=== PATIENT | female | born 1995 | race Caucasian/White ===

== ENCOUNTER 2021-08-12 10:32 | Outpatient (REF) | payer BC, SELFPAY ==
[2021-08-13 05:54] LABS: CT PCR NOT DETECTED (Not Detect.); NG PCR NOT DETECTED (Not Detect.)
[2021-08-13 15:40] LABS: BV Int Neg Control Negative (Negative); BV Int Pos Control Positive (Positive)
== END 2021-08-12 10:33 | disposition home or self-care (01) ==
LOC: HO.LAB 10:32
PROVIDERS: Visit Provider Advanced Practice Midwife
DX: Z01.411 Encounter for gynecological examination (general) (routine) with abnormal findings (principal); Z20.2 Contact with and (suspected) exposure to infections with a predominantly sexual mode of transmission; R53.83 Other fatigue
CPT/HCPCS: 87480; 87491; 87510; 87591; 87660; 88142

== ENCOUNTER 2022-01-01 09:28 | Outpatient (REF) | payer BC, SELFPAY ==
[2022-01-02 06:32] LABS: CT PCR NOT DETECTED (Not Detect.); NG PCR NOT DETECTED (Not Detect.)
[2022-01-02 09:20] LABS: BV Int Neg Control Negative (Negative); BV Int Pos Control Positive (Positive)
== END 2022-01-01 09:29 | disposition home or self-care (01) ==
LOC: HO.LAB 09:28
PROVIDERS: Visit Provider Advanced Practice Midwife
DX: O26.899 Other specified pregnancy related conditions, unspecified trimester (principal); R10.2 Pelvic and perineal pain; Z20.2 Contact with and (suspected) exposure to infections with a predominantly sexual mode of transmission
CPT/HCPCS: 81003; 87480; 87491; 87510; 87591; 87660

== ENCOUNTER 2022-01-10 10:38 | Outpatient (REF) | payer BC, SELFPAY ==
--- NOTE | ~2022-01-10 | US_ITS ---
EXAMINATION: US OBSTETRICAL ULTRASOUND CLINICAL INFORMATION: Irregular menstruation. Check size and dates. COMPARISON: None. LMP: 17 2021. Gestational age by maternal dates is 9 weeks 6 days. Estimated date of delivery by maternal dates is 08/09/2022. TECHNIQUE: Transabdominal and transvaginal first trimester OB ultrasound. Transvaginal exam was performed for better visualization of the gestational sac. FINDINGS: There is a single intrauterine gestational sac with visible yolk sac, embryo/fetus, and cardiac activity. There is no significant subchorionic hemorrhage or hematoma. HR: 122 beats per minute. CRL (crown rump length): 0.51 cm (6 weeks 3 days +/- 4 days). BRAEDEN (estimated date of delivery): 09/02/2022 +/- 4 days. MATERNAL ADNEXA: The right maternal ovary measures 3.4 x 1.7 x 2.3 cm. The left maternal ovary measures 3 x 1.7 x 2.6 cm. There is no significant maternal adnexal mass. No maternal pelvic ascites. US/US OB <= 14 weeks fetus IMPRESSION: 1. Single intrauterine gestation with ultrasound gestational age of 6 weeks 3 days +/- 4 days. 2. Estimated date of delivery is 09/02/2022 +/- 4 days. 3. No maternal adnexal mass or pelvic ascites.
--- NOTE | ~2022-01-10 | US_ITS ---
EXAMINATION: US OBSTETRICAL ULTRASOUND CLINICAL INFORMATION: Irregular menstruation. Check size and dates. COMPARISON: None. LMP: 17 2021. Gestational age by maternal dates is 9 weeks 6 days. Estimated date of delivery by maternal dates is 08/09/2022. TECHNIQUE: Transabdominal and transvaginal first trimester OB ultrasound. Transvaginal exam was performed for better visualization of the gestational sac. FINDINGS: There is a single intrauterine gestational sac with visible yolk sac, embryo/fetus, and cardiac activity. There is no significant subchorionic hemorrhage or hematoma. HR: 122 beats per minute. CRL (crown rump length): 0.51 cm (6 weeks 3 days +/- 4 days). BRAEDEN (estimated date of delivery): 09/02/2022 +/- 4 days. MATERNAL ADNEXA: The right maternal ovary measures 3.4 x 1.7 x 2.3 cm. The left maternal ovary measures 3 x 1.7 x 2.6 cm. There is no significant maternal adnexal mass. No maternal pelvic ascites. US/US OB transvaginal IMPRESSION: 1. Single intrauterine gestation with ultrasound gestational age of 6 weeks 3 days +/- 4 days. 2. Estimated date of delivery is 09/02/2022 +/- 4 days. 3. No maternal adnexal mass or pelvic ascites.
== END 2022-01-10 10:39 | disposition home or self-care (01) ==
LOC: HO.US 10:38
PROVIDERS: Visit Provider Advanced Practice Midwife
DX: O26.891 Other specified pregnancy related conditions, first trimester (principal); R10.2 Pelvic and perineal pain; Z3A.09 9 weeks gestation of pregnancy
CPT/HCPCS: 76801; 76817

== ENCOUNTER 2022-01-24 08:39 | Outpatient (REF) | payer BC, SELFPAY ==
[2022-01-24 15:23] LABS: CT PCR NOT DETECTED (Not Detect.); NG PCR NOT DETECTED (Not Detect.)
[2022-01-25 15:15] LABS: BV Int Neg Control Negative (Negative); BV Int Pos Control Positive (Positive)
== END 2022-01-24 08:40 | disposition home or self-care (01) ==
LOC: HO.LNP 08:39
PROVIDERS: Visit Provider Advanced Practice Midwife
DX: Z01.419 Encounter for gynecological examination (general) (routine) without abnormal findings (principal)
CPT/HCPCS: 87480; 87491; 87510; 87591; 87660

== ENCOUNTER 2022-02-07 10:55 | Outpatient (REF) | payer BC, SELFPAY ==
[2022-02-07 12:16] LABS: Amphetamine Screen Urine Not Detected (Not Detect); Barbiturates, Urine Not Detected (Not Detect); Benzodiazepines Screen Urine Not Detected (Not Detect); Cannabinoid Screen Urine Not Detected (Not Detect); Cocaine Screen Urine Not Detected (Not Detect); Fentanyl, urine Not Detected (Not Detect); Opiate Screen Urine Not Detected (Not Detect); Phencyclidine Screen Urine Not Detected (Not Detect)
[2022-02-07 12:56] LABS: Hematocrit 36.2 % (37.0-47.0); Hemoglobin 12.1 g/dl (12.0-16.0); Mean Corpuscular HGB Conc 33.4 g/dl (31.0-35.0); Mean Corpuscular Hemoglobin 29.8 pg (27.0-33.0); Mean Corpuscular Volume 89.2 fL (80.0-98.0); Mean Platelet Volume 11.3 fL (9.4-12.3); Platelet Count 290 X10*3/uL (160-400); Red Blood Count 4.06 X10*6/uL (4.20-5.50); Red Cell Distribution Width 13.9 % (11.0-16.0); White Blood Count 10.4 X10*3/uL (4.8-10.8)
[2022-02-07 13:16] LABS: Glucose 1 Hour PP 50gm Dose 86 mg/dL (60-140)
[2022-02-07 13:40] LABS: Syphilis Screen Nonreactive (Nonreactive)
[2022-02-07 14:17] LABS: HBsAGNum1 0.25 S/CO (0.00-0.99); HIV AB/AG Nonreactive (Nonreactive); HIV Num 1 0.11 S/CO (0.00-0.99); Hepatitis B Surface Antigen Negative (Negative); ~Hepatitis C Antibody Nonreactive (Nonreactive)
[2022-02-10 17:06] LABS: Rubella IgG Antibody 2.36 Index
== END 2022-02-07 10:56 | disposition home or self-care (01) ==
LOC: HO.LAB 10:55
PROVIDERS: Visit Provider Advanced Practice Midwife
DX: Z32.01 Encounter for pregnancy test, result positive (principal)
CPT/HCPCS: 80307; 82950; 85027; 86762; 86780; 86787; 86803; 86850; 86900; 87086; 87340; 87389; 99212

== ENCOUNTER → 2022-02-20 11:08 | Outpatient (BNVA) | payer BC, SELFPAY | PROVIDERS: Visit Provider Advanced Practice Midwife | DX: Z34.01 Encounter for supervision of normal first pregnancy, first trimester (principal); Z13.31 Encounter for screening for depression; Z3A.12 12 weeks gestation of pregnancy | CPT/HCPCS: 81003; 99212 ==

== ENCOUNTER → 2022-03-20 08:53 | Outpatient (BNVA) | payer BC, SELFPAY | PROVIDERS: Visit Provider Advanced Practice Midwife | DX: Z34.92 Encounter for supervision of normal pregnancy, unspecified, second trimester (principal); Z3A.16 16 weeks gestation of pregnancy | CPT/HCPCS: 99212 ==

== ENCOUNTER 2022-03-30 17:53 | Emergency (ER) | payer BC, SELFPAY | END 2022-03-30 19:43 | disposition left against medical advice (07) | LOC: HO.ED 19:16 | PROVIDERS: Emergency Provider Emergency Medicine | DX: H92.02 Otalgia, left ear (principal) ==

== ENCOUNTER → 2022-04-23 08:56 | Outpatient (BNVA) | payer BC, SELFPAY | PROVIDERS: Visit Provider Advanced Practice Midwife | DX: Z34.02 Encounter for supervision of normal first pregnancy, second trimester (principal); Z3A.21 21 weeks gestation of pregnancy | CPT/HCPCS: 99212 ==

== ENCOUNTER → 2022-05-22 08:51 | Outpatient (BNVA) | payer BC, SELFPAY | PROVIDERS: Visit Provider Advanced Practice Midwife | DX: Z34.92 Encounter for supervision of normal pregnancy, unspecified, second trimester (principal); Z3A.25 25 weeks gestation of pregnancy | CPT/HCPCS: 81003; 99212 ==

== ENCOUNTER 2022-06-19 09:51 | Outpatient (REF) | payer BC, SELFPAY ==
[2022-06-19 12:38] LABS: Hematocrit 32.6 % (37.0-47.0); Hemoglobin 10.7 g/dl (12.0-16.0); Mean Corpuscular HGB Conc 32.8 g/dl (31.0-35.0); Mean Corpuscular Hemoglobin 29.9 pg (27.0-33.0); Mean Corpuscular Volume 91.1 fL (80.0-98.0); Mean Platelet Volume 11.8 fL (9.4-12.3); Platelet Count 232 X10*3/uL (160-400); Red Blood Count 3.58 X10*6/uL (4.20-5.50); Red Cell Distribution Width 13.2 % (11.0-16.0); White Blood Count 11.5 X10*3/uL (4.8-10.8)
[2022-06-19 13:23] LABS: Glucose 1 Hour PP 50gm Dose 93 mg/dL (60-140)
[2022-06-20 08:57] LABS: Syphilis Screen Nonreactive (Nonreactive)
[2022-06-30 15:53] LABS: CF Ethnicity NG; Cystic Fibrosis NEGATIVE (NEGATIVE)
== END 2022-06-19 09:52 | disposition home or self-care (01) ==
LOC: HO.LAB 09:51
PROVIDERS: Visit Provider Advanced Practice Midwife
DX: Z34.93 Encounter for supervision of normal pregnancy, unspecified, third trimester (principal); Z3A.29 29 weeks gestation of pregnancy
CPT/HCPCS: 36415; 81003; 81220; 82950; 85027; 86780; 99212

== ENCOUNTER → 2022-07-04 14:24 | Outpatient (BNVA) | payer BC, SELFPAY | PROVIDERS: Visit Provider Advanced Practice Midwife | DX: O26.893 Other specified pregnancy related conditions, third trimester (principal); M54.32 Sciatica, left side; Z23 Encounter for immunization; Z3A.32 32 weeks gestation of pregnancy | CPT/HCPCS: 90471; 90715; 99212 ==

== ENCOUNTER → 2022-07-17 15:11 | Outpatient (BNVA) | payer BC, SELFPAY | PROVIDERS: Visit Provider Advanced Practice Midwife | DX: O99.213 Obesity complicating pregnancy, third trimester (principal); O26.893 Other specified pregnancy related conditions, third trimester; G43.909 Migraine, unspecified, not intractable, without status migrainosus; Z3A.33 33 weeks gestation of pregnancy | CPT/HCPCS: 81003; 99212 ==

== ENCOUNTER 2022-08-01 14:19 | Outpatient (REF) | payer BC, SELFPAY ==
[2022-08-01 18:00] LABS: CT PCR NOT DETECTED (Not Detect.); NG PCR NOT DETECTED (Not Detect.)
[2022-08-02 10:14] LABS: BV Int Neg Control Negative (Negative); BV Int Pos Control Positive (Positive)
[2022-08-03 11:22] LABS: Allergic to Penicillin? Yes
== END 2022-08-01 14:20 | disposition home or self-care (01) ==
LOC: HO.LNP 14:19
PROVIDERS: Visit Provider Advanced Practice Midwife
DX: Z34.93 Encounter for supervision of normal pregnancy, unspecified, third trimester (principal); Z20.2 Contact with and (suspected) exposure to infections with a predominantly sexual mode of transmission; Z3A.36 36 weeks gestation of pregnancy
CPT/HCPCS: 0353U; 81003; 87081; 87147; 87150; 87186; 87480; 87510; 87660; 99212

== ENCOUNTER 2022-08-07 14:00 | Outpatient (RCR) | payer BC, SELFPAY | END 2022-08-28 08:43 | disposition home or self-care (01) | LOC: HO.PT 14:00 | PROVIDERS: Visit Provider Advanced Practice Midwife | DX: M54.32 Sciatica, left side (principal) | CPT/HCPCS: 97110; 97161 ==

== ENCOUNTER → 2022-08-08 13:16 | Outpatient (BNVA) | payer BC, MEDICAID, SELFPAY | PROVIDERS: Visit Provider Advanced Practice Midwife | DX: O32.1XX0 Maternal care for breech presentation, not applicable or unspecified (principal); O41.00X0 Oligohydramnios, unspecified trimester, not applicable or unspecified; O99.820 Streptococcus B carrier state complicating pregnancy; O98.813 Other maternal infectious and parasitic diseases complicating pregnancy, third trimester; B96.89 Other specified bacterial agents as the cause of diseases classified elsewhere; O26.893 Other specified pregnancy related conditions, third trimester; G43.909 Migraine, unspecified, not intractable, without status migrainosus; Z3A.37 37 weeks gestation of pregnancy; Z79.899 Other long term (current) drug therapy | CPT/HCPCS: 81003; 99212 ==

== ENCOUNTER 2022-08-08 14:22 | Outpatient (REF) | payer BC, SELFPAY ==
--- NOTE | ~2022-08-08 | US_ITS ---
EXAMINATION: US OBSTETRICAL FOLLOW UP CLINICAL INFORMATION: Encounter for supervision abnormal COMPARISON: Previous OB ultrasound 01/10/2022 TECHNIQUE: Real time transabdominal imaging with color and M-mode Doppler. POSITION: Cephalic PLACENTA: Right lateral AMNIOTIC FLUID INDEX: Not obtained. Amniotic fluid volume is subjectively low normal. 2 x 2 cm pocket is seen image 8. MEASUREMENTS: The initial dating ultrasound dated provided an estimated date of delivery of 08/20/2022. This would project today to a of 38 weeks 2 days. biometric measurements are as follows: Biparietal Diameter: 9 cm (36 weeks 5 days) Occipital Frontal Diameter: 10.8 cm (34 weeks 4 days) Head Circumference: 32.8 cm (37 weeks 3 days) Abdominal Circumference: 34.6 cm (38 weeks 4 days) Femur Length: 7.9 cm (40 weeks 3 days) The standard deviation for the above measurements is +/- 3 weeks. ESTIMATED WEIGHT: The EFW is 3522 grams +/- 515 grams (7 lbs 12 oz +/- 18 oz). HR: 142 bpm US/US OB follow up IMPRESSION: 1. Single intrauterine gestation in cephalic position with right lateral placenta. 2. EFW: 7 lbs. 12 oz. 3. CHARU: Not obtained. Amniotic fluid volume is subjectively low normal. 4. BPP score: Not obtained.
== END 2022-08-08 14:23 | disposition home or self-care (01) ==
LOC: HO.US 14:22
PROVIDERS: Visit Provider Advanced Practice Midwife
DX: O32.1XX0 Maternal care for breech presentation, not applicable or unspecified (principal); Z3A.37 37 weeks gestation of pregnancy
CPT/HCPCS: 76816

== ENCOUNTER → 2022-08-14 14:25 | Outpatient (BNVA) | payer BC, SELFPAY | PROVIDERS: Visit Provider Advanced Practice Midwife | DX: O41.03X0 Oligohydramnios, third trimester, not applicable or unspecified (principal); O98.813 Other maternal infectious and parasitic diseases complicating pregnancy, third trimester; B95.1 Streptococcus, group B, as the cause of diseases classified elsewhere; Z3A.37 37 weeks gestation of pregnancy | CPT/HCPCS: 99212 ==

== ENCOUNTER → 2022-08-21 12:52 | Outpatient (BNVA) | payer BC, SELFPAY | PROVIDERS: Visit Provider Advanced Practice Midwife | DX: O99.820 Streptococcus B carrier state complicating pregnancy (principal); O99.343 Other mental disorders complicating pregnancy, third trimester; F41.8 Other specified anxiety disorders; Z3A.38 38 weeks gestation of pregnancy | CPT/HCPCS: 81003; 99212 ==

== ENCOUNTER → 2022-10-08 12:54 | Outpatient (BNVA) | payer BC, SELFPAY | PROVIDERS: Visit Provider Advanced Practice Midwife | DX: Z39.2 Encounter for routine postpartum follow-up (principal) | CPT/HCPCS: 99212 ==

== ENCOUNTER 2023-01-14 14:58 | Emergency (ER) | payer BC, MEDICAID, SELFPAY ==
--- NOTE | 2023-01-14 15:00 | ECG_ITS ---
Test Reason : chest pain Blood Pressure : / mmHG Vent. Rate : 083 BPM Atrial Rate : 083 BPM P-R Int : 134 ms QRS Dur : 074 ms QT Int : 362 ms P-R-T Axes : 044 060 002 degrees QTc Int : 425 ms Normal sinus rhythm with sinus arrhythmia T wave abnormality, consider inferior ischemia Abnormal ECG When compared with ECG of 23-MAR-2019 20:36, T wave inversion now evident in Inferior leads Nonspecific T wave abnormality, worse in Anterior leads Referred By: Generic ED Physician Electronically Signed By:JUD FERRERA
[2023-01-14 15:13] VITALS: BP 145/91; PULSE 84; RESP 16; TEMP 37.3; O2SAT 99; BMI 38.7
--- NOTE | 2023-01-14 15:17 | ED_ITS ---
HPI - General Adult General Chief complaint: Chest Pain Stated complaint: chest pain, hands tingly, body numb Time Seen by Provider: 01/14/23 15:25 Source: patient Mode of arrival: ambulatory Limitations: no limitations History of Present Illness HPI narrative: Patient 10 weeks complaining of chest pain since early 07:00 today feel heaviness in the chest no shortness of breath feels also tingling in the right arm no history of PE or coronary disease no shortness of breath no cough patient had similar chest pain the past without any workup denies any significant anxiety Related Data Previous Rx's Medication Instructions Recorded PNV 153-FA 400 mcg-om3 35 mg-dha 1 tab PO DAILY #30 tabs 03/20/22 25 mg-epa 5 mg-fish oil chew tablet ( Gummies) omeprazole 40 mg capsule,delayed 40 mg PO DAILY #30 caps 01/14/23 release sucralfate 1 gram tablet 1 g PO BID #30 tabs 01/14/23 Allergies Allergy/AdvReac Type Severity Reaction Status Date / Time amoxicillin [Amoxicillin] Allergy Unknown UNKNOWN Verified 10/08/22 13:05 Review of Systems 2 Review of Systems: Yes all other systems are reviewed and are negative PMFSH Past Medical History Medical History Genetic screening Adult BMI > 30 History of MRSA infection Depression with anxiety Migraine Social History Social History Household Members: Family Housing: House Are you a primary child care associate teacher to a significant other at home: No Do you presently have visiting nurse or other home services: No Alcohol intake: never Patient Tobacco Use Status: Never used Tobacco Smoked in Last 30 Days: No Use of substances other than those prescribed or required for medical reasons: No Special cuong needs: No Agree to transfusion: Yes Advance Directives: No Advance Directives Information Provided: Yes Patient : Yes Gender identity: Female Physical Exam ED Vital Signs: Vital Signs - 24 hr 01/14/23 15:13 01/14/23 15:57 Temperature 99.1 F 98.5 F Pulse Rate 84 65 Respiratory Rate 16 16 Blood Pressure 145/91 H 109/73 Pulse Oximetry 99 98 Oxygen Delivery Method Room Air Room Air BMI result Body Mass Index 38.7 Appearance: Alert. Oriented X3. No acute distress. Eyes: PERRLA, No Nystagmus ENT: Pharynx normal. Oral Mucosa moist Neck: Normal inspection. Neck supple. CVS: Normal heart rate and rhythm. Pulses normal. Respiratory: No respiratory distress. Equal air entry bilateral, no wheezing/rales/rhonchi Abdomen: Soft and nontender. Bowel sounds are present, no mass palpable, no CVA tenderness Skin: Skin warm and dry. Normal skin color. Normal skin turgor. Extremities: No lower extremity edema. No calf tenderness Neuro: Oriented X 3. No motor deficit. Course Course Course Narrative: RME- 27 year old female presents for evaluation chest pain that started at 10:30 a.m. this morning. Her pain started while she was watching TV. Her pain is mostly right-sided. She also endorses numbness in her fingertips. Patient reports that she is currently but is unsure exactly how long. Her last period was in November. She follows up with OBGYN tomorrow. Denies any lower abdominal pain, vaginal bleeding or discharge Medical Decision Making Medical Decision Making MDM Narrative: Patient with no real cardiac risk factor heart score of 0 comes with a chest patient is 10 weeks vitals are stable initial troponin negative EKG without any significant ischemic changes as patient feels heavy in the chest will check for D-dimer to rule out PE D-dimer negative up patient likely has esophagitis will discharge patient home on Prilosec and sucralfate Differential Diagnosis Differential Diagnoses: The differential diagnosis associated with the presentation includes Angina/non STEMI/PE/atypical chest pain/gastritis Admission/Observation Consideration of admission/observation: Escalation of care including admission/observation considered Lab Data [facility] Lab Attestation statement: I reviewed the patient's lab results. 01/14/23 15:22 01/14/23 15:22 Labs: Lab Results 01/14/23 Range/Units 15:22 WBC 9.7 (4.8-10.8) X10*3/uL RBC 4.08 L (4.20-5.50) X10*6/uL Hgb 11.8 L (12.0-16.0) g/dl Hct 35.2 L (37.0-47.0) % MCV 86.3 (80.0-98.0) fL MCH 28.9 (27.0-33.0) pg MCHC 33.5 (31.0-35.0) g/dl RDW 13.8 (11.0-16.0) % Plt Count 290 (160-400) X10*3/uL MPV 11.1 (9.4-12.3) fL Immature Gran % (Auto) 0.2 (0.0-0.4) % Neut % (Auto) 66.0 (45-73) % Lymph % (Auto) 27.1 (20-40) % Warrick % (Auto) 5.4 (2-11) % Eos % (Auto) 0.6 (0-4) % Baso % (Auto) 0.7 (0-2) % Lymph # (Auto) 2.6 (1.2-4.9) X10*3/uL Warrick # (Auto) 0.5 (0.1-1.2) X10*3/uL Eos # (Auto) 0.1 (0.0-0.4) X10*3/uL Baso # (Auto) 0.1 (0.0-0.2) X10*3/uL Abs Immat Gran (auto) 0.02 (0.00-0.03) X10*3/uL Absolute Neuts (auto) 6.4 (2.0-8.3) x10*3/uL Absolute Nucleated RBC 0.000 (0.0-0.012) X10*3/uL Nucleated RBC % (auto) 0.0 (0.0-0.2) /100WBC PT 11.7 (11.1-13.3) SEC INR 1.0 (0.9-1.1) APTT 35.7 (26.0-36.4) SEC D-Dimer High Sensitivty < 150 NG/ML Sodium 139 (135-145) mmol/L Potassium 3.9 (3.3-5.1) mmol/L Chloride 111 H (96-108) mmol/L Carbon Dioxide 21 L (22-29) mmol/L Anion Gap 11 L (12-20) BUN 8 L (9-16) mg/dL Creatinine 0.68 (0.5-1.4) mg/dL Estim Creat Clear Calc 147.1 Estimated GFR > 60 Random Glucose 101 (60-115) mg/dL Calcium 9.7 (8.4-10.2) mg/dL Total Bilirubin 0.2 (0.0-1.0) mg/dL AST 14 (5-31) U/L ALT 10 (0-31) U/L Alkaline Phosphatase 54 (39-117) U/L Troponin I High Sens < 2.7 (<3.5-17.0) ng/L Total Protein 7.3 (6.5-8.0) g/dL Albumin 4.0 (3.5-5.0) g/dL Lipase 18 (8-78) U/L Beta HCG, Quant [id number] mIU/mL Independent Interpretation I performed an independent interpretation of an: EKG Interpretation: Normal sinus rhythm heart rate 83 beats per minute now interval normal axis nonspecific T-wave changes no acute ischemia Discharge Plan Discharge Clinical Impression: Atypical chest pain Patient Disposition: Home, Self-Care Instructions: Chest Pain (ED) Additional Instructions: Your chest pain is unlikely related to your heart Take medication as prescribed for heartburn/chest pain Follow with PCP Prescriptions: New sucralfate 1 gram tablet 1 g PO BID Qty: 30 0RF omeprazole 40 mg capsule,delayed release(DR/EC) 40 mg PO DAILY Qty: 30 0RF No Action Gummies 400 mcg-35 mg- 25 mg-5 mg tablet,chewable 1 tab PO DAILY Qty: 30 11RF
[2023-01-14 15:26] LABS: MANUAL DIFF FLAG NO
[2023-01-14 15:28] LABS: Basophils Absolute Auto 0.1 X10*3/uL (0.0-0.2); Basophils Percent Auto 0.7 % (0-2); Eosinophils Absolute Auto 0.1 X10*3/uL (0.0-0.4); Eosinophils Percent Auto 0.6 % (0-4); Hematocrit 35.2 % (37.0-47.0); Hemoglobin 11.8 g/dl (12.0-16.0); Imm Gran Abs Auto 0.02 X10*3/uL (0.00-0.03); Imm Gran Pct Auto 0.2 % (0.0-0.4); Lymphocytes Absolute Auto 2.6 X10*3/uL (1.2-4.9); Lymphocytes Percent Auto 27.1 % (20-40); Mean Corpuscular HGB Conc 33.5 g/dl (31.0-35.0); Mean Corpuscular Hemoglobin 28.9 pg (27.0-33.0); Mean Corpuscular Volume 86.3 fL (80.0-98.0); Mean Platelet Volume 11.1 fL (9.4-12.3); Monocytes Absolute Auto 0.5 X10*3/uL (0.1-1.2); Monocytes Percent Auto 5.4 % (2-11); Neutrophils Absolute Auto 6.4 x10*3/uL (2.0-8.3); Platelet Count 290 X10*3/uL (160-400); Red Blood Count 4.08 X10*6/uL (4.20-5.50); Red Cell Distribution Width 13.8 % (11.0-16.0); White Blood Count 9.7 X10*3/uL (4.8-10.8)
[2023-01-14 15:49] LABS: Prothrombin Time 11.7 SEC (11.1-13.3)
[2023-01-14 15:51] LABS: Alanine Aminotransferase 10 U/L (0-31); Alkaline Phosphatase 54 U/L (39-117); Anion Gap 11 (12-20); Aspartate Amino Transferase 14 U/L (5-31); Bilirubin Total 0.2 mg/dL (0.0-1.0); Blood Urea Nitrogen 8 mg/dL (9-16); Calcium 9.7 mg/dL (8.4-10.2); Carbon Dioxide 21 mmol/L (22-29); Chloride 111 mmol/L (96-108); Creatinine Clr Calc Pharmacy 147.1; Estimated Glomerular Filt Rate > 60; Glucose Random 101 mg/dL (60-115); Lipase 18 U/L (8-78); Partial Thromboplastin Time 35.7 SEC (26.0-36.4); Potassium 3.9 mmol/L (3.3-5.1); Sodium 139 mmol/L (135-145); Total Protein 7.3 g/dL (6.5-8.0)
[2023-01-14 15:52] LABS: Troponin-I High Sensitivity < 2.7 ng/L (<3.5-17.0)
[2023-01-14 15:57] VITALS: BP 109/73; PULSE 65; RESP 16; TEMP 36.9; O2SAT 98
[2023-01-14 17:02] LABS: D Dimer High Sensitivity < 150 NG/ML
== END 2023-01-14 17:38 | disposition home or self-care (01) ==
PROVIDERS: Physician Assistant; Emergency Provider Internal Medicine
DX: R07.89 Other chest pain (principal); Z79.899 Other long term (current) drug therapy
CPT/HCPCS: 36415; 80053; 83690; 84484; 84702; 85025; 85379; 85610; 85730; 93005; 99283; 99285

== ENCOUNTER 2023-01-15 14:54 | Outpatient (AMB) | payer BC, SELFPAY ==
[2023-01-15 15:03] VITALS: BP 100/60; BMI 38.6
--- NOTE | 2023-01-15 15:03 | MHC.OFFVIS ---
Intake Vital Signs 01/15/23 15:03 Height 5 ft 4 in Weight 225 lb BMI 38.6 BP 100/60 Intake Visit Reasons: consult Intake Note: LMP 11/04/22 08/11/23 10w 2d The patient agreed to use of a expert medical writer during this encounter. Scribed for AHSAN Pierre by Jada Chun, expert medical writer, on 01/15/2023 at 3:11 pm EST. Allergies amoxicillin [Amoxicillin] Allergy (Unknown, Verified 01/15/23 15:03) UNKNOWN Is last menstrual period known: Yes Last menstrual period: 11/04/22 HPI HPI Comments History of Present Illness Details She is here for consult. LMP 11/04/22 08/11/23 10w 2d. Is taking PNV gummies. Unplanned, accepting of , plan to continue. Admits nausea but is able to eat. Denies pelvic pain, past surgeries or complications in last /delivery. There was a question of low fluid volume, she reports was ruled out. Reports light headedness when standing to fast. Reports possible movement. [facility] Medical History (Updated 01/15/23 @ 15:17 by Jada Chun) Early stage of Genetic screening Adult BMI > 30 History of MRSA infection Depression with anxiety Migraine Social History Household Members: Family Both parents involved: Yes Housing: House Are you a primary healthcare business analyst to a significant other at home: No Do you presently have visiting nurse or other home services: No 75 years or older and lives alone: No Alcohol intake: never Patient Tobacco Use Status: Never used Tobacco Special cuong needs: No Agree to transfusion: Yes Gender identity: Female Female Reproductive History Menstrual Age of Menarche: 13 Duration of menses: 3-5 days Date of last menstrual period: 11/04/22 Total pregnancies: 2 Full term: 1 Number of Living Children: 1 Physical Exam Vital Signs: Last Vital Signs BP 100/60 01/15/23 15:03 BMI result Body Mass Index 38.6 Const General: cooperative, healthy appearing, comfortable, no acute distress, well developed, alert and awake GI Other: palpated abdomen Inspection: Yes obesity Assessment & Plan Assessment & Plan (1) Early stage of : Code(s): Z34.90 - Encounter for supervision of normal , unspecified, unspecified trimester Plan: Discussed: PNV and B6 Rx sent to pharmacy. US ordered. Reviewed when to call for any VB or pelvic pain. Discussed to call the service here for any emergencies/deliveries to be directed to [facility]. All of her questions and concerns were addressed to the best of my ability and shared decision making. She is agreeable to plan of care. Follow up pending results, for a plan of care. (2) Positive test: Code(s): Z32.01 - Encounter for test, result positive (3) Missed menses: Code(s): N92.6 - Irregular menstruation, unspecified (4) Nausea: Code(s): R11.0 - Nausea Orders: Orders US OB limited Today N92.6 - Irregular menstruation, unspecified, Z32.01 - Encounter for test, result positive Medications: New pyridoxine (vitamin B6) 25 mg PO TID PRN 90 tabs 0RF nausea and vomiting Refilled PNV [id number] 400 mcg-35 mg- 25 mg-5 mg ( Gummies) 1 tab PO DAILY 90 tabs 4RF Coding Level of Care Code Est Pt Level 3 (61537) Diagnoses Early stage of Z34.90 Positive test Z32.01 Missed menses N92.6 Nausea R11.0
== END 2023-01-15 15:20 | disposition home or self-care (01) ==
PROVIDERS: Visit Provider Advanced Practice Midwife
DX: Z34.90 Encounter for supervision of normal pregnancy, unspecified, unspecified trimester (principal); Z32.01 Encounter for pregnancy test, result positive; N92.6 Irregular menstruation, unspecified; R11.0 Nausea
CPT/HCPCS: 99213

== ENCOUNTER → 2023-01-15 14:54 | Outpatient (BNVA) | payer BC, SELFPAY | PROVIDERS: Visit Provider Advanced Practice Midwife ==

== ENCOUNTER 2023-01-16 15:08 | Outpatient (REF) | payer BC, MEDICAID, SELFPAY ==
--- NOTE | ~2023-01-16 | US_ITS ---
EXAMINATION: US OBSTETRICAL ULTRASOUND CLINICAL INFORMATION: Irregular menstruation, unspecified ? LMP 11/04/2022 COMPARISON: None available. LMP: 11/04/2022. Gestational age by maternal dates is 10 weeks 3 days. Estimated date of delivery by maternal dates is 08/11/2023. TECHNIQUE: Transvaginal imaging was performed. FINDINGS: There is a single intrauterine gestational sac with fetus demonstrating movement and cardiac activity. There is no significant subchorionic hemorrhage or hematoma. HR: 172 beats per minute. CRL (crown rump length): 3.5 cm (10 weeks 3 days +/- 4 days). BRAEDEN (estimated date of delivery): 08/11/2023 +/- 4 days. MATERNAL ADNEXA: The right maternal ovary measures 3.0 x 2.2 x 2.0 cm. The left maternal ovary measures 3.0 x 2.8 x 2.1 cm. There is no significant maternal adnexal mass. No maternal pelvic ascites. US/US OB <= 14 weeks fetus IMPRESSION: 1. Single intrauterine gestation with ultrasound gestational age of 10 weeks 3 days +/- 4 days. This is in concordance with estimated gestational age based on LMP. 2. Estimated date of delivery is 08/11/2023 +/- 4 days. 3. No maternal adnexal mass or pelvic ascites.
== END 2023-01-16 15:09 | disposition home or self-care (01) ==
LOC: HO.US 15:08
PROVIDERS: Visit Provider Advanced Practice Midwife
DX: Z34.91 Encounter for supervision of normal pregnancy, unspecified, first trimester (principal); Z3A.10 10 weeks gestation of pregnancy
CPT/HCPCS: 76801

== ENCOUNTER 2023-01-22 13:58 | Outpatient (AMB) | payer BC, MEDICAID, SELFPAY ==
--- NOTE | 2023-01-22 14:07 | MHC.OFFVISPN ---
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 Required: No Allergies amoxicillin [Amoxicillin] Allergy (Unknown, Verified 01/15/23 15:03) UNKNOWN Medication List - Last Reconciled 01/22/23 by Shivani Sullivan omeprazole 40 mg PO DAILY PNV [id number] 400 mcg-35 mg- 25 mg-5 mg ( Gummies) 1 tab PO DAILY pyridoxine (vitamin B6) 25 mg PO TID PRN sucralfate 1 g PO BID Is last menstrual period known: Yes Last menstrual period: 11/04/22 Post menopausal: No Patient : Yes [facility] Medical History (Updated 01/22/23 @ 15:28 by Shivani Sullivan) Early stage of Genetic screening Adult BMI > 30 History of MRSA infection Depression with anxiety Migraine Family History (Updated 01/22/23 @ 14:18 by Shivani Sullivan) Brother Tracheostomy present Feeding by G-tube Social History (Updated 01/22/23 @ 14:22 by Shivani Sullivan) Household Members: Children Both parents involved: Yes Caregiver staying overnight: No Housing: House Are you a primary patient care secretary to a significant other at home: No Do you presently have visiting nurse or other home services: No 75 years or older and lives alone: No Alcohol intake: never Patient Tobacco Use Status: Never used Tobacco Special cuong needs: No Agree to transfusion: Yes service: No Current occupational status: employed 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 Date GA/Weeks Outcome Route Wt Inf Gender Labor Leena Anesthesia Location Provider Complicate 08/27/22 39 live - full term vaginal delivery 7 lb 3 oz Male none [facility] none Education First Trimester Education Checklist Plans/Education - by Trimester Counseled: Yes HIV and other routine tests: discussed Infectious disease exposure: chicken pox immunity discussed, hepatitis risk discussed and tuberculosis exposure discussed Influenza vaccine: discussed Nutrition and weight gain counseling: special diet: discussed Sexual activity: discussed Exercise: discussed Tobacco use: No Alcohol use: No Substance use: No Environmental/home/work hazards: discussed Domestic violence: discussed Travel: discussed Seatbelt use: discussed Toxoplasmosis precautions (cats/raw meat): discussed Childbirth education/discussion: symptoms education/discussion danger signs: Yes education packet: symptoms, vitamins and iron, diet and weight gain, fish and mercury intake, listeriosis prevention, caffeine use, exercise and activity, work issues, sexual activity, x-ray exposure, medication use, toxoplasmosis precautions, sauna/hot tub use and dental care Mental health: discussed Anticipated course of care: discussed Indications for ultrasound: discussed Health center information: nature of practice discussed, personnel described, visit schedule reviewed, ultrasounds policy reviewed, coverage 24 hours a day and signs of miscarriage reviewed Questionnaire History History : 2 Visit BRAEDEN Calculator Estimated Delivery Date Method Current WG Current Estimate 08/11/23 LMP (Certain) 11w 2d Other Estimates 08/11/23 Ultrasound #1 11w 2d Expected Delivery Route/Plan Specific Issues/Plans Obesity BMI 38.8--early glucose ordered OB Visit Log Initial Weight: 220 lb Date <del>?</del> EGA Weight Gest Week Fundal Ht Present FHR move Efface % Edema BP PrePreg We Weight GTT <del>?</del> Glucose LV Protein Blood Type 01/22/23 <del>?</del> 11w 2d 224 lb (+4 lb) 224 lb <del>?</del> Notes Visit Date: 01/22/23 Last Updated by: Shivani Zapata is here for control technician. She is a pleasant 27 year old with LMP 11/04/22 and BRAEDEN 08/11/23 which correlates exactly with US on 01/16/23 at 10w3d, BRAEDEN 4/9/24 and GA today of 11w3d today. Short interval was unplanned but pt wishes to continue. Pt's son will be ~1 year old when baby #2 is born. FOB is the same for both pregnancies. He is supportive. BMI is 38.8 and early glucose has been added to labs. Pt is scheduled for OB PE 02/04/23. Jodi has some nausea but she is managing well. She is on PNV and has been prescribed Vit B6 for nausea but has not started the medication. She is also taking sucralfate and omeprazole for heartburn. She has h/o anxiety and depression, does not have a counselor but reports her boyfriend and family are very supportive. Pt does report she has a half-brother who has a trach and G-tube, nonambulatory and nonverbal but she is not sure of the reason. She will try and find out the problem. Pt also mentioned that she has had diarrhea for a few weeks. We discussed adding fiber to her diet and was advised to discuss this further at her OB PE. Pt denies abd pain or blood per rectum. Pt was given the folder. We discussed danger signs, MD availability 24/11 and how to reach the MD after hours. She is aware that she will deliver at [facility] and have ultrasounds there as well. Pt was also advised of need to transfer to a [facility] practice if her becomes high-risk. Anticipate another vaginal delivery. No complications with her first or delivery. Pt advised that labs, including early glucose have been ordered and she will have them done orion. Advised to decrease sweets and carbs night before and morning of testing. Will schedule NT US and 1st trimester screening at [facility]. Pt verbalizes understanding and agrees with plan. All of her questions were answered to the best of my ability. Initial Infection History & Risk Profile History of STDs: No HIV risk evaluation: low risk Hepatitis B risk evaluation: low risk Patient or partner has history of Genital Herpes: No Varicella/chicken pox status: unknown Genetic Screening & Disease Education Specialist Genetic Screening/Teratology Counseling - Includes patient, baby's father, or anyone in either family with: 1. Patient's age 35 years or older as of estimated date of delivery: No 2. Thalassemia (Faroese, Sudanese, Mediterranean, or Background); MCV less than 80: No 3. Neural Tube Defect (Meningomyelocele, Spina Bifida, or Anencephaly): No 4. Congenital Heart Defect: No 5. Down Syndrome: No 6. Alex-Sachs (Ashkenazi Muslim, Cajun, [place]an [place]er): No 7. Braden Disease (Ashkenazi Muslim): No 8. Familial Dysautonomia (Ashkenazi Muslim): No 9. Sickle Cell Disease or Trait (): No 10. Hemophilia or other blood disorders: No 11. Muscular Dystrophy: No 12. Cystic Fibrosis: No 13. [place]'s Chorea: No 14. Intellectual disability/Autism: Yes 15. Other inherited genetic or chromosomal disorder: No 16. Maternal Metabolic Disorder (EG,TYPE 1 Diabetes, PKU): No 17. Patient or baby's father had a child with defects not listed above: No 18. Recurrent loss or a stillbirth: No 19. Medications (including supplements, vitamins, herbs or otc drugs)/illicit/recreational drugs/alcohol since last menstrual period: No 20. Any other: No Comments/Counseling: Pt's half-brother has trach and G-tube and is nonverbal and needs wheelchair but pt is unsure the reason, FOB is a triplet and has had surgery and treatment for bilateral club feet. Infection History 1. Live with someone with TB or exposed to TB: No 2. Rash or viral illness since last menstrual period: No 3. Hepatitis B,C: No Other (see comments) Source: [employer] Assessment & Plan Assessment & Plan (1) Supervision of normal in first trimester: Code(s): Z34.91 - Encounter for supervision of normal , unspecified, first trimester Category: Medical Orders: Orders Hepatitis B Surface Antigen Today Z32.01 - Encounter for test, result positive, Z34.91 - Encounter for supervision of normal , unspecified, first trimester Varicella IgG Antibody Today Z32.01 - Encounter for test, result positive, Z34.91 - Encounter for supervision of normal , unspecified, first trimester Hepatitis C Antibody Today Z32.01 - Encounter for test, result positive, Z34.91 - Encounter for supervision of normal , unspecified, first trimester Drug Screen Urine Today Z32.01 - Encounter for test, result positive, Z34. - Encounter for supervision of normal , unspecified, first trimester Glucose 1 Hour PP 50gm Dose Today Z32.01 - Encounter for test, result positive, Z34.91 - Encounter for supervision of normal , unspecified, first trimester CF Carrier Screen Today Z32.01 - Encounter for test, result positive, Z34.91 - Encounter for supervision of normal , unspecified, first trimester Complete Blood Count no Diff Today Z32.01 - Encounter for test, result positive, Z34.91 - Encounter for supervision of normal , unspecified, first trimester Syphilis Screen Today Z32.01 - Encounter for test, result positive, Z34.91 - Encounter for supervision of normal , unspecified, first trimester Urine Culture Today Z32.01 - Encounter for test, result positive, Z34.91 - Encounter for supervision of normal , unspecified, first trimester HIV Ab/Ag Today Z32.01 - Encounter for test, result positive, Z34.91 - Encounter for supervision of normal , unspecified, first trimester Screen Today Z32.01 - Encounter for test, result positive, Z34.91 - Encounter for supervision of normal , unspecified, first trimester Rubella IgG Antibody Today Z32.01 - Encounter for test, result positive, Z34.91 - Encounter for supervision of normal , unspecified, first trimester US OB 1T nuc measure Today Z32.01 - Encounter for test, result positive, Z34.91 - Encounter for supervision of normal , unspecified, first trimester Coding Level of Care Code Established Pt Pradeep Patient Type Established History Problem Focused Medical Decision Making Low Complexity Diagnoses Supervision of normal in first trimester Z34.91 Time Spent (min) 60
[2023-01-22 14:08] VITALS: BMI 38.4
== END 2023-01-22 15:04 | disposition home or self-care (01) ==
PROVIDERS: Visit Provider Advanced Practice Midwife
DX: Z34.91 Encounter for supervision of normal pregnancy, unspecified, first trimester (principal)
CPT/HCPCS: 25942

== ENCOUNTER → 2023-01-22 13:58 | Outpatient (BNVA) | payer BC, MEDICAID, SELFPAY | PROVIDERS: Visit Provider Advanced Practice Midwife | DX: Z34.81 Encounter for supervision of other normal pregnancy, first trimester (principal) | CPT/HCPCS: 99212 ==

== ENCOUNTER 2023-02-03 16:37 | Outpatient (REF) | payer BC, MEDICAID, SELFPAY ==
[2023-02-03 17:31] LABS: Hematocrit 33.6 % (37.0-47.0); Hemoglobin 11.1 g/dl (12.0-16.0); Mean Corpuscular Hemoglobin 28.9 pg (27.0-33.0); Mean Corpuscular Volume 87.5 fL (80.0-98.0); Mean Platelet Volume 12.1 fL (9.4-12.3); Platelet Count 287 X10*3/uL (160-400); Red Blood Count 3.84 X10*6/uL (4.20-5.50); White Blood Count 10.4 X10*3/uL (4.8-10.8)
[2023-02-04 07:56] LABS: Syphilis Screen Nonreactive (Nonreactive)
[2023-02-04 09:45] LABS: HBsAGNum1 0.45 S/CO (0.00-0.99); HIV AB/AG Nonreactive (Nonreactive); HIV Num 1 0.06 S/CO (0.00-0.99); Hepatitis B Surface Antigen Negative (Negative); ~Hepatitis C Antibody Nonreactive (Nonreactive)
[2023-02-13 22:04] LABS: CF Ethnicity HISPANIC; Cystic Fibrosis NEGATIVE (NEGATIVE)
== END 2023-02-03 16:38 | disposition home or self-care (01) ==
LOC: HO.LAB 16:37
PROVIDERS: Visit Provider Advanced Practice Midwife
DX: Z34.91 Encounter for supervision of normal pregnancy, unspecified, first trimester (principal)
CPT/HCPCS: 81220; 85027; 86762; 86780; 86787; 86803; 86850; 86900; 87340; 87389

== ENCOUNTER 2023-02-04 14:04 | Outpatient (REF) | payer BC, MEDICAID, SELFPAY ==
[2023-02-04 17:37] LABS: CT PCR NOT DETECTED (Not Detect.); NG PCR NOT DETECTED (Not Detect.)
[2023-02-05 12:34] LABS: BV Int Neg Control Negative (Negative); BV Int Pos Control Positive (Positive)
== END 2023-02-04 14:05 | disposition home or self-care (01) ==
LOC: HO.LNP 14:04
PROVIDERS: Visit Provider Advanced Practice Midwife
DX: O26.891 Other specified pregnancy related conditions, first trimester (principal); N89.8 Other specified noninflammatory disorders of vagina; Z3A.13 13 weeks gestation of pregnancy
CPT/HCPCS: 0353U; 87480; 87510; 87660; 99212

== ENCOUNTER 2023-02-04 14:04 | Outpatient (AMB) | payer BC, MEDICAID, SELFPAY ==
[2023-02-04 14:17] VITALS: BP 116/72; BMI 38.3
--- NOTE | 2023-02-04 14:17 | MHC.OFFVIS ---
Intake Vital Signs 02/04/23 14:17 Height 5 ft 4 in Weight 223 lb BMI 38.3 BP 116/72 Intake Visit Reasons: OBPE Community Health Advocate Required: No Information Interpreted: non-clinical & clinical Deputy Insurance Commissioner: Deputy Insurance Commissioner Present (Yenny) Allergies amoxicillin [Amoxicillin] Allergy (Unknown, Verified 02/04/23 14:21) UNKNOWN Is last menstrual period known: Yes Last menstrual period: 11/04/22 Post menopausal: No Patient : Yes PFSH Medical History Early stage of Genetic screening Adult BMI > 30 History of MRSA infection Depression with anxiety Migraine Family History Brother Tracheostomy present Feeding by G-tube Social History Household Members: Children Both parents involved: Yes Caregiver staying overnight: No Housing: House Are you a primary adult caregiver to a significant other at home: No Do you presently have visiting nurse or other home services: No 75 years or older and lives alone: No Alcohol intake: never Patient Tobacco Use Status: Never used Tobacco Special cuong needs: No Agree to transfusion: Yes service: No Current occupational status: employed 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
--- NOTE | 2023-02-04 14:28 | MHC.OFFVISPN ---
Intake Vital Signs 02/04/23 14:17 Height 5 ft 4 in Weight 223 lb BMI 38.3 BP 116/72 Intake Visit Reasons: OBPE Intake Note: The patient agreed to use of a medical clerk during this encounter. Scribed for AHSAN Pierre by Jada Chun medical clerk, on 02/04/2023 at 2:43 pm EST. Hospice Spiritual Care Coordinator Required: No Information Interpreted: non-clinical & clinical Supervisor Floor Assembly: Supervisor Floor Assembly Present (Yenny) Allergies amoxicillin [Amoxicillin] Allergy (Unknown, Verified 02/04/23 14:21) UNKNOWN Is last menstrual period known: Yes Last menstrual period: 11/04/22 Post menopausal: No Patient : Yes [facility] Medical History Early stage of Genetic screening Adult BMI > 30 History of MRSA infection Depression with anxiety Migraine Family History Brother Tracheostomy present Feeding by G-tube Social History Household Members: Children Both parents involved: Yes Caregiver staying overnight: No Housing: House Are you a primary customer care coordinator to a significant other at home: No Do you presently have visiting nurse or other home services: No 75 years or older and lives alone: No Alcohol intake: never Patient Tobacco Use Status: Never used Tobacco Special cuong needs: No Agree to transfusion: Yes service: No Current occupational status: employed 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 Date GA/Weeks Outcome Route Wt Inf Gender Labor Leena Anesthesia Location Provider Complicate 08/27/22 39 live - full term vaginal delivery 7 lb 3 oz Male none [facility] none Questionnaire History History : 2 [place] Depression [place] Depression Scale I have been able to laugh and see the funny side of things: As much as I always could I have looked forward with enjoyment to things: As much as I ever did I have blamed myself unnecessarily when things went wrong: No, never I have been anxious or worried for no reason: No, not at all I have felt scared of panicky for no very good reason at all: No, not at all Things have been getting on top of me: No, I have been coping as well as ever I have been so unhappy that I have had difficulty sleeping: No, not at all I have felt sad or miserable: No, not at all I have been so unhappy that I have been crying: No, never The thought of harming myself has occurred to me: Never 0 PHQ Assessment Billing PHQ Assessment Tool: PHQ Assessment [id number] Visit BRAEDEN Calculator Estimated Delivery Date Method Current WG Current Estimate 08/11/23 LMP (Certain) 13w 1d Other Estimates 08/11/23 Ultrasound #1 13w 1d Comments: EDC: 08/11/23 A positive Problem List: 1. closely spaced 2. obesity 3. anemia-can't [id number] iron. 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 plan: control: Expected Delivery Route/Plan OB Visit Log Initial Weight: 220 lb Date <del>?</del> EGA Weight Gest Week Fundal Ht Present FHR move Efface % Edema BP PrePreg We Weight GTT <del>?</del> Glucose LV Protein Blood Type 01/22/23 <del>?</del> 11w 2d 224 lb (+4 lb) 224 lb <del>?</del> 02/04/23 <del>?</del> 13w 1d 223 lb (+3 lb) 160 116/72 223 lb <del>?</del> Notes Visit Date: 02/04/23 Last Updated by: Inez Melgar CNM OB Note author: Inez Melgar CNM/Jada Adiel medical clerk 13.1 wk. PNV. Good FM, no LOF or VB. Reports taking PNV gummies without iron. Has concerns of '' bubbles '' on her back/flank that come and go, not present today. Discussed: Advised to do Glucose testing on Thursday her day off, same day as the NT is booked. Monitor rash and if become more bothersome contact office: referral to [employer] Operator or see PCP when rash is present. BV testing and GC/CT panel done today. Await results and treat accordingly. Advised to eat healthy and stay hydrated. Increase iron enriched foods. Reviewed when to call for any VB. Discussed to call the service here for any emergencies/deliveries to be directed to [facility]. RTO 4wk. Visit Date: 01/22/23 Last Updated by: Shivani Sullivan Jodi is here for tube teller. She is a pleasant 27 year old with LMP 11/04/22 and BRAEDEN 08/11/23 which correlates exactly with US on 01/16/23 at 10w3d, BRAEDEN 08/11/23 and GA today of 11w3d today. Short interval was unplanned but pt wishes to continue. Pt's son will be ~1 year old when baby #2 is born. FOB is the same for both pregnancies. He is supportive. BMI is 38.8 and early glucose has been added to labs. Pt is scheduled for OB PE 02/04/23. Jodi has some nausea but she is managing well. She is on PNV and has been prescribed Vit B6 for nausea but has not started the medication. She is also taking sucralfate and omeprazole for heartburn. She has h/o anxiety and depression, does not have a counselor but reports her boyfriend and family are very supportive. Pt does report she has a half-brother who has a trach and G-tube, nonambulatory and nonverbal but she is not sure of the reason. She will try and find out the problem. Pt also mentioned that she has had diarrhea for a few weeks. We discussed adding fiber to her diet and was advised to discuss this further at her OB PE. Pt denies abd pain or blood per rectum. Pt was given the folder. We discussed danger signs, MD availability 24/ and how to reach the MD after hours. She is aware that she will deliver at [facility] and have ultrasounds there as well. Pt was also advised of need to transfer to a [facility] practice if her becomes high-risk. Anticipate another vaginal delivery. No complications with her first or delivery. Pt advised that labs, including early glucose have been ordered and she will have them done orion. Advised to decrease sweets and carbs night before and morning of testing. Will schedule NT US and 1st trimester screening at [facility]. Pt verbalizes understanding and agrees with plan. All of her questions were answered to the best of my ability. Exam Const Constitutional General: cooperative, healthy appearing, no acute distress, well developed and alert Orientation/consciousness: oriented to person, oriented to place, oriented to time and patient oriented x3 HENMT Head: normal to inspection Eyes General: appearance normal, both eyes and all related structures Neck Neck: normal visual inspection Thyroid: Thyroid normal Chest Chest palpation & inspection: normal inspection of the chest Breast/axilla inspection: normal inspection of the breasts Resp Effort & Inspection: normal respiratory effort Auscultation: clear to auscultation bilaterally Cardio Rate: regular rate Rhythm: regular rhythm GI Inspection (GI): normal to inspection Palpation (GI): Soft to palpation Other: obese abdomen General Exam: Yes bladder normal to palpation External Female Exam: normal external appearance and normal appearance of the urethra Urethra: normal appearance of the urethra Speculum exam - vagina: normal appearance of the vagina and normal discharge Bimanual exam- vagina & uterus: normal bimanual exam, uterine size normal, bladder normal to palpation and normal palpation Bimanual Exam- Adnexa, other: normal adnexae and no masses Skin General skin exam: no rashes or lesions noted Neuro General: Yes oriented to person, Yes oriented to place and Yes oriented to time Cognition (Neuro): normal cognition Extrem General: normal to inspection Psych Appearance: grossly normal Thought process: Normal thought process present Assessment & Plan Assessment & Plan (1) Supervision of normal in first trimester: Code(s): Z34.91 - Encounter for supervision of normal , unspecified, first trimester Category: Medical (2) Vaginal discharge: Code(s): N89.8 - Other specified noninflammatory disorders of vagina (3) Vaginal itching: Code(s): N89.8 - Other specified noninflammatory disorders of vagina Orders: Orders Bacterial Vaginosis Panel Today N89.8 - Other specified noninflammatory disorders of vagina, O26.899 - Other specified related conditions, unspecified trimester CT NG by PCR Today N89.8 - Other specified noninflammatory disorders of vagina, O26.899 - Other specified related conditions, unspecified trimester Coding Level of Care Code [place] Diagnoses Supervision of normal in first trimester Z34.91 Vaginal discharge N89.8 Vaginal itching N89.8
== END 2023-02-04 15:09 | disposition home or self-care (01) ==
PROVIDERS: Visit Provider Advanced Practice Midwife
DX: Z34.91 Encounter for supervision of normal pregnancy, unspecified, first trimester (principal); N89.8 Other specified noninflammatory disorders of vagina
CPT/HCPCS: 25942

== ENCOUNTER 2023-02-13 08:28 | Emergency (ER) | payer BC, MEDICAID, SELFPAY ==
--- NOTE | ~2023-02-13 | XR_ITS ---
EXAMINATION: XR FOOT, LEFT CLINICAL INFORMATION: Left foot injury COMPARISON: None available. TECHNIQUE: AP, lateral, and oblique views of the left foot. FINDINGS: Comminuted, minimally displaced fractures of the mid first proximal phalanx with soft tissue swelling. No proximal intra-articular extension. Distal intra-articular extension not excluded. Alignment and articulations are maintained. XR/XR foot LT 2V IMPRESSION: Fractured great toe.
[2023-02-13 08:30] VITALS: BP 108/69; PULSE 73; RESP 17; O2SAT 99; BMI 38.7
--- NOTE | 2023-02-13 09:06 | ED_ITS ---
HPI - General Adult General Chief complaint: Extremity Injury, Lower Stated complaint: L foot inj Time Seen by Provider: 02/13/23 09:05 Source: patient Mode of arrival: ambulatory Limitations: no limitations History of Present Illness HPI narrative: Patient is a 27 year old assigned female at with a history of current presenting to the emergency department today with left great toe pain. Patient states that last night she dropped a heater onto her left great toe. Patient states that the heater was off and not at all hot. Patient states that she is now having left great toe pain. Patient denies any dizziness, lightheadedness, abdominal pain, nausea, vomiting, fever, chills, blurry vision, double vision, loss of vision, chest pain, difficulty breathing, shortness of breath, back pain, night sweats, pain with urination, increased urinary frequency, increased urinary urgency, blood in her urine or stool, syncope or a near syncopal episode, bowel incontinence, bladder incontinence, bowel rete ntion, bladder retention, or any other complaints at this time. Onset (ago): day(s) (1) Location: left and lower extremity Radiation: non-radiation Severity: mild Severity scale (1-10): 3 Quality: aching and dull Pain Consistency: constant Relieving factors: immobilization Exacerbating factors: movement Associated symptoms: denies other symptoms Treatments prior to arrival: none Related Data Previous Rx's Medication Instructions Recorded omeprazole 40 mg capsule,delayed 40 mg PO DAILY #30 caps 01/14/23 release sucralfate 1 gram tablet 1 g PO BID #30 tabs 01/14/23 PNV 153-FA 400 mcg-om3 35 mg-dha 1 tab PO DAILY #90 tabs 01/15/23 25 mg-epa 5 mg-fish oil chew tablet ( Gummies) pyridoxine (vitamin B6) 25 mg 25 mg PO TID PRN nausea and 01/15/23 tablet vomiting #90 tabs Allergies Allergy/AdvReac Type Severity Reaction Status Date / Time amoxicillin [Amoxicillin] Allergy Unknown UNKNOWN Verified 02/04/23 14:21 Review of Systems Constitutional: Constitutional: Reports no additional constitutional complaints, Denies chills, Denies fever(s) and Denies night sweats Eyes: Eyes: Reports no additional eye complaints, Denies blurry vision, Denies change in vision, Denies diplopia, Denies eye discharge, Denies loss of vision and Denies eye pain ENT: Denies dizziness Cardiovascular: Cardiovascular: Reports no additional cardiovascular complaints, Denies chest pain, Denies lightheadedness, Denies Loss of Consciousness and Denies dyspnea Respiratory: Respiratory: Reports no additional respiratory complaints and D enies dyspnea Gastrointestinal: Gastrointestinal: Reports no additional gastrointestinal complaints, Denies abdominal pain, Denies melena, Denies hematochezia, Denies change in bowel habits and Denies change in stool character Genitourinary: Genitourinary: Denies hematuria, Denies urinary frequency, Denies dysuria, Denies urinary incontinence, Denies urinary hesitancy and Denies urinary urgency Musculoskeletal: Musculoskeletal: Reports no additional musculoskeletal complaints, Denies numbness and Denies tingling Comments: left great toe pain Neurologic: Denies dizziness, Denies loss of vision, Denies numbness and Denies tingling Psychiatric: Psychiatric: Reports no additional psychiatric complaints Endocrine: Endocrine: Reports no additional endocrine complaints Hematologic/Lymphatic: Hematologic/Lymphatic: Reports no additional hematologic/lymphatic complaints Allergic/Immunologic: Allergic/Immunologic: Reports no additional allergic/immunologic complaints [facility] Past Medical History Attestation statement: The following information was validated with the patient. Source: old records reviewed and nursing notes reviewed Medical History Nausea Missed menses Positive test Encounter for supervision of normal in third trimester Screening for depression Fatigue Cervical cancer screening Well woman exam with routine gynecological exam Early stage of Genetic screening Adult BMI > 30 History of MRSA infection Depression with anxiety Migraine Family History Family History Brother Tracheostomy present Feeding by G-tube Social History Social History Household Members: Children Housing: House Are you a primary care taker to a significant other at home: No Do you presently have visiting nurse or other home services: No Alcohol intake: never Patient Tobacco Use Status: Never used Tobacco Special cuong needs: No Agree to transfusion: Yes Advance Directives: No Advance Directives Information Provided: No service: No Current occupational status: employed 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 Gender identity: Female Physical Exam ED Vital Signs: Vital Signs - 24 hr 02/13/23 08:30 Pulse Rate 73 Respiratory Rate 17 Blood Pressure 108/69 Pulse Oximetry 99 Oxygen Delivery Method Room Air BMI result Body Mass Index 38.7 Const General: cooperative, no acute distress, alert and awake Nutritional Appearance: well nourished Orientation/consciousness: patient oriented x3 Limitations: no limitations HENMT Head: Yes normal to inspection and Yes atraumatic Ears: hearing grossly normal bilaterally and external ears normal General nose exam: Normal external nose present, no nasal discharge noted and no epistaxis Face and sinus: Yes normal facial exam, No abrasion and No laceration Mouth: Normal oral and palatal mucosa present, no drooling and no muffled voice Eyes General: appearance normal, both eyes and all related structures Periorbital: periorbital findings normal Eyelids: Yes eyelids normal Conjunctivae: conjunctivae normal Pupils: Equal, round and reactive pupils present EOM: EOMs intact bilaterally Neck Neck: Yes normal visual inspection, Yes full ROM and Yes no lymphadenopathy Chest Chest palpation & inspection: normal inspection of the chest Resp Effort & Inspection: normal respiratory effort and able to speak in complete sentences GI Inspection: Yes normal to inspection Neuro General: patient oriented x3 and moves all extremities Cranial nerves: Yes Equal, round and reactive pupils present Cognition (Neuro): normal cognition Motor exam (neuro): 5/5 motor strength present throughout Sensory Exam: Normal double simultaneous stimulation for sensation Coordination: [id number]-[id number] test normal Extrem Other: minimal swelling and bruising present to the left dorsal great toe General: Yes full ROM and Yes capillary refill normal Psych Appearance: grossly normal Mental Status: mental status grossly normal Affect: normal affect Attitude: cooperative Thought process: Normal thought process present Thought content: Normal thought content present Insight: Good insight present (Psych) Procedures Orthopedic Splinting/Casting Injury #1: Side: left Lower Extremity Injury Location: toe Lower Extremity Immobilizer: boot orthosis Other Orthopedic Equipment: crutches Medical Decision Making Medical Decision Making MDM Narrative: Patient is a 27 year old assigned female at with a history of current presenting to the emergency department today with left great toe pain. Patient's physical exam was as noted in the physical exam portion of this note. Patient's left foot x-ray showed a fractured left great toe. Patient was placed in a walking boot and given crutches with crutch instructions. Patient's PMS was intact prior to and after boot placement. I explained my physical exam findings as well as all test results to the patient. I answered all questions asked by the patient. I stressed the importance of the patient taking her medication as prescribed. I stressed the importance of the patient following up with her primary care provider and an orthopedic provider. I stressed the importance of the patient returning to the emergency department immediately if her symptoms were to worsen or if she were to develop any dizziness, shortness of breath, difficulty breathing, chest pain, blurry vision, loss of vision, nausea, vomiting, abdominal pain, fever, chills, back pain, or any other complaints. Patient verbalized agreement and understanding with this treatment plan and discharge. Differential Diagnosis Differential Diagnoses: The differential diagnosis associated with the presentation includes Toe fracture Toe contusion Foot fracture Independent Interpretation I performed an independent interpretation of an: Plain X-Ray Interpretation: My interpretation is in agreement with the radiologist's impression of this imaging study. EXAMINATION: XR FOOT, LEFT CLINICAL INFORMATION: Left foot injury COMPARISON: None available. TECHNIQUE: AP, lateral, and oblique views of the left foot. FINDINGS: Comminuted, minimally displaced fractures of the mid first proximal phalanx with soft tissue swelling. No proximal intra-articular extension. Distal intra-articular extension not excluded. Alignment and articulations are maintained. XR/XR foot LT 2V IMPRESSION: Fractured great toe. Dictated By: Torrie Maier MD Signed By: Electronically signed by Torrie Maier MD 02/13/23 0945 Radiology Impression Discussion of test interpretation with radiology: I have reviewed the radiologist's reading. Discharge Plan Discharge Clinical Impression: Fracture of toe Patient Disposition: Home, Self-Care Instructions: Toe Fracture (ED), Walking Boot (ED) Additional Instructions: Follow up with your primary care provider and an orthopedic provider. Return to the emergency department immediately if your symptoms worsen or if you develop any dizziness, shortness of breath, difficulty breathing, chest pain, blurry vision, loss of vision, nausea, vomiting, abdominal pain, fever, chills, back pain, or any other complaints. Prescriptions: No Action sucralfate 1 gram tablet 1 g PO BID Qty: 30 0RF omeprazole 40 mg capsule,delayed release(DR/EC) 40 mg PO DAILY Qty: 30 0RF Gummies 400 mcg-35 mg- 25 mg-5 mg tablet,chewable 1 tab PO DAILY Qty: 90 4RF pyridoxine (vitamin B6) 25 mg tablet 25 mg PO TID PRN (Reason: nausea and vomiting) Qty: 90 0RF Referrals: [facility] Family Medicine [Provider Group] (Call to establish and follow up with a primary care provider. If you already have a primary care provider, please follow up with them.) [facility] Primary Care, Elliot [Provider Group] (Call to establish and follow up with a primary care provider. If you already have a primary care provider, please follow up with them.) [facility] Primary Care,Pradeep [Provider Group] (Call to establish and follow up with a primary care provider. If you already have a primary care provider, please follow up with them.) [facility] Orthopedic Surgeons [Provider Group] (Call to establish and follow up with an orthopedic provider.) Stand Alone Forms: Work/School Release Print Language: Azeri
== END 2023-02-13 10:48 | disposition home or self-care (01) ==
PROVIDERS: Emergency Provider Student in an Organized Health Care Education/Training Program
DX: S92.412A Displaced fracture of proximal phalanx of left great toe, initial encounter for closed fracture (principal); W20.8XXA Other cause of strike by thrown, projected or falling object, initial encounter; Y93.9 Activity, unspecified; Y92.9 Unspecified place or not applicable; Y99.9 Unspecified external cause status
CPT/HCPCS: 73620; 99283; 99284

== ENCOUNTER 2023-02-16 15:34 | Outpatient (REF) | payer BC, MEDICAID, SELFPAY ==
[2023-02-16 17:20] LABS: Amphetamine Screen Urine Not Detected (Not Detect); Barbiturates, Urine Not Detected (Not Detect); Benzodiazepines Screen Urine Not Detected (Not Detect); Cannabinoid Screen Urine Not Detected (Not Detect); Cocaine Screen Urine Not Detected (Not Detect); Fentanyl, urine Not Detected (Not Detect); Opiate Screen Urine Not Detected (Not Detect); Phencyclidine Screen Urine Not Detected (Not Detect)
[2023-02-16 18:09] LABS: Glucose 1 Hour PP 50gm Dose 75 mg/dL (60-140)
== END 2023-02-16 15:35 | disposition home or self-care (01) ==
LOC: HO.LAB 15:34
PROVIDERS: Visit Provider Advanced Practice Midwife
DX: Z34.91 Encounter for supervision of normal pregnancy, unspecified, first trimester (principal); R82.90 Unspecified abnormal findings in urine
CPT/HCPCS: 80307; 82950; 87086

== ENCOUNTER 2023-02-27 08:28 | Outpatient (AMB) | payer BC, MEDICAID, SELFPAY ==
--- NOTE | 2023-02-27 08:33 | A.OFFVIS_ITS ---
Intake Intake Visit Reasons: fc-left great toe fracture Intake Note: Jodi is a 27 year old female who presents today as a new patient for a fracture care appointment. On 02/12/23 she dropped a heater on the left great toe. She reports immediate onset of pain and went to the ED Allergies amoxicillin [Amoxicillin] Allergy (Unknown, Verified 02/27/23 08:36) UNKNOWN HPI fc-left great toe fracture HPI Details 27-year-old female who presents in the [facility] today, as a new patient, for an evaluation of left foot pain. The patient presented to the ED on 02/13/2023 status post on 02/12/2023 dropping a heater on the left great toe. X- rays of the left foot were obtained. She was placed in a boot and referred to orthopedics. 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 Of note: Due to the patient being we will defer further x-rays at this time. [facility] Medical History Nausea Missed menses Positive test Encounter for supervision of normal in third trimester Screening for depression Fatigue Cervical cancer screening Well woman exam with routine gynecological exam Early stage of Genetic screening Adult BMI > 30 History of MRSA infection Depression with anxiety Migraine Family History Brother Tracheostomy present Feeding by G-tube Social History Household Members: Children Both parents involved: Yes Caregiver staying overnight: No Housing: House Are you a primary resident care director to a significant other at home: No Do you presently have visiting nurse or other home services: No 75 years or older and lives alone: No Alcohol intake: never Patient Tobacco Use Status: Never used Tobacco Special cuong needs: No Agree to transfusion: Yes service: No Current occupational status: employed 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 Tenderness to palpation over the proximal phalanx. Able to engage in EHLs. Sensation intact. Assessment & Plan Assessment & Plan (1) Fracture of left great toe: Comment: Comminuted minimal displaced fracture proximal phalanx great toe. Code(s): S92.402A - Displaced unspecified fracture of left great toe, initial encounter for closed fracture Qualifiers: Encounter type: initial encounter Fracture alignment: displaced Fracture type: closed Phalanx: proximal Qualified Code(s): S92.412A - Displaced fracture of proximal phalanx of left great toe, initial encounter for closed fracture Plan Ms. Lepe is a 27-year-old female who presents in the office today, as a new patient, for an evaluation of left foot pain. The patient presented to the ED on 02/13/2023 status post on 02/12/2023 dropping a heater on the left great toe. X-rays of the left foot were obtained. She was placed in a boot and referred to orthopedics. 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 Of note: Due to the patient being we will defer further x-rays at this time. The patient will continue to wear the short walking boot. Due to the patient working as a mail messenger contractor she was given an out of work note until follow up. She also had [facility] paperwork we will process for her. At her follow up I would like to repeat x-rays to check for healing and malalignment. Follow up will be in 4 weeks, or sooner if needed. X-rays of the left foot, obtained on 02/13/2023, revealed: Comminuted minimal displaced fracture proximal phalanx great toe. Patient Instructions: Scribed for Radha Whitaker PA-C by minh Lockett scribe, on 02/27/2023 at 8:29 am, EST. Coding Level of Care Code New Pt Level 4 (30769) Diagnoses Closed displaced fracture of proximal phalanx of left great toe, initial encounter S92.412A Encounter type: initial encounter Fracture alignment: displaced Fracture type: closed Phalanx: proximal
== END 2023-02-27 09:56 | disposition home or self-care (01) ==
PROVIDERS: Visit Provider Physician Assistant
DX: S92.412A Displaced fracture of proximal phalanx of left great toe, initial encounter for closed fracture (principal)
CPT/HCPCS: 99203

== ENCOUNTER 2023-02-27 15:10 | Outpatient (REF) | payer BC, MEDICAID, SELFPAY | END 2023-02-27 15:11 | disposition home or self-care (01) | LOC: HO.HOSX 15:10 | PROVIDERS: Visit Provider Physician Assistant | DX: Z13.89 Encounter for screening for other disorder (principal) ==

== ENCOUNTER 2023-03-10 11:00 | Outpatient (AMB) | payer BC, MEDICAID, SELFPAY ==
--- NOTE | 2023-03-10 11:07 | MHC.OFFVISPN ---
Intake Vital Signs 03/10/23 11:15 Height 5 ft 4 in Weight 223 lb BMI 38.3 BP 110/70 Intake Visit Reasons: RUPESH Monitoring Coordinator Required: No Information Interpreted: non-clinical & clinical Accompanied by: Self / Same As Patient Allergies amoxicillin [Amoxicillin] Allergy (Unknown, Verified 03/10/23 11:16) UNKNOWN Patient : Yes PFSH Medical History Nausea Missed menses Positive test Encounter for supervision of normal in third trimester Screening for depression Fatigue Cervical cancer screening Well woman exam with routine gynecological exam Early stage of Genetic screening Adult BMI > 30 History of MRSA infection Depression with anxiety Migraine Family History Brother Tracheostomy present Feeding by G-tube Social History Household Members: Children Both parents involved: Yes Caregiver staying overnight: No Housing: House Are you a primary plant health care technician to a significant other at home: No Do you presently have visiting nurse or other home services: No 75 years or older and lives alone: No Alcohol intake: never Patient Tobacco Use Status: Never used Tobacco Special cuong needs: No Agree to transfusion: Yes service: No Current occupational status: employed 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 Date GA/Weeks Outcome Route Wt Inf Gender Labor Leena Anesthesia Location Provider Complicate 08/27/22 39 live - full term vaginal delivery 7 lb 3 oz Male none [facility] none Visit BRAEDEN Calculator Estimated Delivery Date Method Current WG Current Estimate 08/11/23 LMP (Certain) 18w 0d Other Estimates 08/11/23 Ultrasound #1 18w 0d Expected Delivery Route/Plan OB Visit Log Initial Weight: 220 lb Date <del>?</del> EGA Weight Gest Week Fundal Ht Present FHR move Efface % Edema BP PrePreg We Weight GTT <del>?</del> Glucose LV Protein Blood Type 01/22/23 <del>?</del> 11w 2d 224 lb (+4 lb) 224 lb <del>?</del> 02/04/23 <del>?</del> 13w 1d 223 lb (+3 lb) 160 116/72 223 lb <del>?</del> 03/10/23 <del>?</del> 18w 0d 223 lb (+3 lb) 150 110/70 223 lb <del>?</del> Notes Visit Date: 03/10/23 Last Updated by: Yoel Bhat MD Presenting for visit with no complaints, no cramping, leakage of fluid or bleeding. The the patient is starting to feel movements. On vitamin A/P: 18 week of gestation Discussed with the patient options for chromosomal abnormality screening versus counseling. Options discussed with the patient's include but not limited to: Cell free DNA, 1st trimester combined screening, quad screen, integrated, serum integrated, sequential stepwise, contingent screening, nuchal translucency alone , anomaly scan, in addition to invasive diagnostic test. The approximate gestational age range for screening, detection rate for chromosomal abnormalities, screen positive rate, advantages, disadvantages and limitations associated with each test/approach were discussed with the patient . The availability of invasive diagnostic tests were reviewed with the patient and their sensitivity in addition to the associated risk of miscarriage were discussed with the patient. The differences between screening tests and diagnostic tests were explained to the patient . After our discussion, the patient declined invasive genetic testing and opted to stay with the First trimester screening that is based on cell-free DNA or non-invasive testing (NIPT) which was already done and negative. Discussed with the patient the results of her first-trimester screen being low risk for trisomy 21, 13 and 18, explained to the patient that this test does not screen for open neural tube defects and recommendation is to measure maternal serum alpha fetoprotein in the 2nd trimester optimally between 16-18 week in addition to a anomaly screen to screen for neural tube defect. Quadruple screen ordered and anomalies scan is in the process of being scheduled based Instructions given the patient to call in case of cramping and or bleeding, follow-up in 4 weeks Visit Date: 02/04/23 Last Updated by: Inez Melgar CNM OB Note author: Inez Melgar CNM/Jada Chun medical unit secretary 13.1 wk. PNV. Good FM, no LOF or VB. Reports taking PNV gummies without iron. Has concerns of '' bubbles '' on her back/flank that come and go, not present today. Discussed: Advised to do Glucose testing on Thursday her day off, same day as the NT is booked. Monitor rash and if become more bothersome contact office: referral to Sales Consulting Director or see PCP when rash is present. BV testing and GC/CT panel done today. Await results and treat accordingly. Advised to eat healthy and stay hydrated. Increase iron enriched foods. Reviewed when to call for any VB. Discussed to call the service here for any emergencies/deliveries to be directed to [facility]. RTO 4wk. Visit Date: 01/22/23 Last Updated by: Shivani Sullivan Jodi is here for second vp hr assessment. She is a pleasant 27 year old with LMP 11/04/22 and BRAEDEN 08/11/23 which correlates exactly with US on 01/16/23 at 10w3d, BRAEDEN 08/11/23 and GA today of 11w3d today. Short interval was unplanned but pt wishes to continue. Pt's son will be ~1 year old when baby #2 is born. FOB is the same for both pregnancies. He is supportive. BMI is 38.8 and early glucose has been added to labs. Pt is scheduled for OB PE 02/04/23. Jodi has some nausea but she is managing well. She is on PNV and has been prescribed Vit B6 for nausea but has not started the medication. She is also taking sucralfate and omeprazole for heartburn. She has h/o anxiety and depression, does not have a counselor but reports her boyfriend and family are very supportive. Pt does report she has a half-brother who has a trach and G-tube, nonambulatory and nonverbal but she is not sure of the reason. She will try and find out the problem. Pt also mentioned that she has had diarrhea for a few weeks. We discussed adding fiber to her diet and was advised to discuss this further at her OB PE. Pt denies abd pain or blood per rectum. Pt was given the folder. We discussed danger signs, MD availability 24/11 and how to reach the MD after hours. She is aware that she will deliver at [facility] and have ultrasounds there as well. Pt was also advised of need to transfer to a [facility] practice if her becomes high-risk. Anticipate another vaginal delivery. No complications with her first or delivery. Pt advised that labs, including early glucose have been ordered and she will have them done orion. Advised to decrease sweets and carbs night before and morning of testing. Will schedule NT US and 1st trimester screening at [facility]. Pt verbalizes understanding and agrees with plan. All of her questions were answered to the best of my ability. Results AMB Urinalysis, Automated UA Leukoctes 2 Venkat/uL Last Edit by Kylie Fletcher, SPECIAL CLASS WELDER on 03/10/23 11:57 UA Nitrite Negative Last Edit by Kylie Fletcher, SPECIAL CLASS WELDER on 03/10/23 11:57 UA Urobilinogen 3.5 mg/dL Last Edit by Kylie Fletcher, SPECIAL CLASS WELDER on 03/10/23 11:57 UA Protein 0.5 mg/dL Last Edit by Kylie Fletcher, SPECIAL CLASS WELDER on 03/10/23 11:57 UA pH 5.5 Last Edit by Kylie Fletcher, SPECIAL CLASS WELDER on 03/10/23 11:57 UA Blood 0 Av/uL Last Edit by Kylie Fletcher, SPECIAL CLASS WELDER on 03/10/23 11:57 UA Specific [place] 1.025 Last Edit by Kylie Fletcher, SPECIAL CLASS WELDER on 03/10/23 11:57 UA Ketone Negative Last Edit by Kylie Fletcher, SPECIAL CLASS WELDER on 03/10/23 11:57 UA Bilirubin 0 mg/dL Last Edit by Kylie Fletcher, SPECIAL CLASS WELDER on 03/10/23 11:57 UA Glucose 0 mg/dL Last Edit by Kylie Fletcher, SPECIAL CLASS WELDER on 03/10/23 11:57 Results Reviewed Results Reviewed: Laboratory Last Values Urine pH (Auto) 5.5 03/10/23 11:51 Specific [place] (Auto) 1.025 03/10/23 11:51 Urine Protein (Auto) 0.5 mg/dL 03/10/23 11:51 Glucose (UA)(Auto) 0 mg/dL 03/10/23 11:51 Urine Ketones (Auto) Negative 03/10/23 11:51 Urine Blood (Auto) 0 Av/uL 03/10/23 11:51 Urine Nitrite (Auto) Negative 03/10/23 11:51 Urine Bilirubin (Auto) 0 mg/dL 03/10/23 11:51 Urine Urobilinogen (Auto) 3.5 mg/dL 03/10/23 11:51 Leukocyte Esterase (Auto) 2 Venkat/uL 03/10/23 11:51 Assessment & Plan Assessment & Plan Orders: Orders AFP Maternal Screen Today Z34.90 - Encounter for supervision of normal , unspecified, unspecified trimester US OB /maternal detail 2 Weeks Z36.89 - Encounter for other specified screening AMB Urinalysis Automated Today Z34.90 - Encounter for supervision of normal , unspecified, unspecified trimester Coding Level of Care Code Pradeep
[2023-03-10 11:15] VITALS: BP 110/70; BMI 38.3
== END 2023-03-10 11:23 | disposition home or self-care (01) ==
LOC: HO.HWS 11:00
PROVIDERS: Visit Provider Obstetrics & Gynecology
DX: Z34.90 Encounter for supervision of normal pregnancy, unspecified, unspecified trimester (principal)
CPT/HCPCS: 25942

== ENCOUNTER 2023-03-10 11:00 | Outpatient (REF) | payer BC, MEDICAID, SELFPAY | END 2023-03-10 11:01 | disposition home or self-care (01) | LOC: HO.LAB 11:00 | PROVIDERS: Visit Provider Obstetrics & Gynecology | DX: Z34.92 Encounter for supervision of normal pregnancy, unspecified, second trimester (principal); Z3A.18 18 weeks gestation of pregnancy | CPT/HCPCS: 36415; 81003; 82105; 99212 ==

== ENCOUNTER 2023-03-31 07:57 | Outpatient (AMB) | payer BC, MEDICAID, SELFPAY ==
--- NOTE | 2023-03-31 08:14 | A.OFFVIS_ITS ---
Intake Intake Visit Reasons: OV - left great toe fx, DOI 02/12/23 Intake Note: Jodi is a 27 year old female who presents today for a follow up appointment left great toe fx, DOI 02/12/23. Patient reports she is feeling better however still having some pain. She states having some numbness on her foot. Allergies amoxicillin [Amoxicillin] Allergy (Unknown, Verified 03/31/23 08:18) UNKNOWN HPI OV - left great toe fx, DOI 02/12/23 HPI Details 27-year-old female who presents in the [facility] today for a follow up of a left great toe fracture, which occurred on 02/12/2023 status post dropping a heater on the left great toe. While in the office the patient reports she is feeling better but does have some pain. She confirms having some numbness on the left foot. 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 Patient is currently . [facility] Medical History Nausea Missed menses Positive test Encounter for supervision of normal in third trimester Screening for depression Fatigue Cervical cancer screening Well woman exam with routine gynecological exam Early stage of Genetic screening Adult BMI > 30 History of MRSA infection Depression with anxiety Migraine Family History Brother Tracheostomy present Feeding by G-tube Household Members: Children Both parents involved: Yes Caregiver staying overnight: No Housing: House Are you a primary home care administrator to a significant other at home: No Do you presently have visiting nurse or other home services: No 75 years or older and lives alone: No Alcohol intake: never Patient Tobacco Use Status: Never used Tobacco Special cuong needs: No Agree to transfusion: Yes service: No Current occupational status: employed 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 No ecchymosis, erythema, or edema. Mild tenderness to palpation over the proximal phalanx at the fracture site. EHL is intact. Sensation intact. Capillary refill is brisk. Assessment & Plan Assessment & Plan (1) Fracture of left great toe: Comment: Comminuted minimal displaced fracture proximal phalanx great toe. Code(s): S92.402A - Displaced unspecified fracture of left great toe, initial encounter for closed fracture Qualifiers: Encounter type: initial encounter Fracture alignment: displaced Fracture type: closed Phalanx: proximal Qualified Code(s): S92.412A - Displaced fracture of proximal phalanx of left great toe, initial encounter for closed fracture Plan Ms. Lepe is a 27-year-old female who presents in the office today for a follow up of a left great toe fracture, which occurred on 02/12/2023 status post dropping a heater on the left great toe. While in the office the patient reports she is feeling better but does have some pain. She confirms having some numbness on the left foot. 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 Patient is currently . 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 I educated the patient that she should wear supportive shoes. She can contact the office any time for questions and concerns about the healing process. X-rays were deferred at this time due to the patient?s status. Follow up will be PRN, or sooner if needed. Orders: Orders XR foot LT min 3V Today M79.673 - Pain in unspecified foot Patient Instructions: Scribed for Radha Whitaker PA-C by minh Lockett scribe, on 03/31/2023 at 8:00 am, EST. Coding Level of Care Code Est Pt Level 3 (84367) Diagnoses Closed displaced fracture of proximal phalanx of left great toe, initial encounter S92.412A Encounter type: initial encounter Fracture alignment: displaced Fracture type: closed Phalanx: proximal
== END 2023-03-31 08:29 | disposition home or self-care (01) ==
PROVIDERS: Visit Provider Physician Assistant
DX: S92.412A Displaced fracture of proximal phalanx of left great toe, initial encounter for closed fracture (principal)
CPT/HCPCS: 99213

== ENCOUNTER 2023-03-31 10:31 | Outpatient (REF) | payer BC, MEDICAID, SELFPAY | END 2023-03-31 10:32 | disposition home or self-care (01) | LOC: HO.HOSX 10:31 | PROVIDERS: Visit Provider Physician Assistant | DX: Z13.89 Encounter for screening for other disorder (principal) ==

== ENCOUNTER 2023-04-07 09:16 | Outpatient (AMB) | payer BC, MEDICAID, SELFPAY ==
--- NOTE | 2023-04-07 09:21 | MHC.OFFVISPN ---
Intake Vital Signs 04/07/23 09:22 Height 5 ft 4 in Weight 229 lb BMI 39.3 BP 100/60 Intake Visit Reasons: RUPESH Allergies amoxicillin [Amoxicillin] Allergy (Unknown, Verified 04/07/23 09:22) UNKNOWN Patient : Yes PFSH Medical History Nausea Missed menses Positive test Encounter for supervision of normal in third trimester Screening for depression Fatigue Cervical cancer screening Well woman exam with routine gynecological exam Early stage of Genetic screening Adult BMI > 30 History of MRSA infection Depression with anxiety Migraine Family History Brother Tracheostomy present Feeding by G-tube Social History Household Members: Children Both parents involved: Yes Caregiver staying overnight: No Housing: House Are you a primary adult day care worker to a significant other at home: No Do you presently have visiting nurse or other home services: No 75 years or older and lives alone: No Alcohol intake: never Patient Tobacco Use Status: Never used Tobacco Special cuong needs: No Agree to transfusion: Yes service: No Current occupational status: employed 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 Date GA/Weeks Outcome Route Wt Inf Gender Labor Leena Anesthesia Location Provider Complicate 08/27/22 39 live - full term vaginal delivery 7 lb 3 oz Male none [facility] none Visit BRAEDEN Calculator Estimated Delivery Date Method Current WG Current Estimate 08/11/23 LMP (Certain) 22w 0d Other Estimates 08/11/23 Ultrasound #1 22w 0d Expected Delivery Route/Plan Specific Issues/Plans 27Yr. old G 2 P 1 EDC: 08/11/2023 Blood type: A pos Problem List: 1. Closely spaced pregnancies delivered August 2022 2. obesity 3. Anemia-does not tolerate iron. Advised iron rich foods on 02/04/2023. Testing: Panorama/and or First Tri screen: risk NT scan: Booked 02/09/2023 AFP: FAS: Normal Glucose: early 75 28 wk glucose: CBC 1st Tri: 11.1 28 wk. 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 Transportation: Has oral Labor, and Concerns: Labor support: Plan: Feeding Plans: control: OB Visit Log Initial Weight: 220 lb Date <del>?</del> EGA Weight Gest Week Fundal Ht Present FHR move Efface % Edema BP PrePreg We Weight GTT <del>?</del> Glucose LV Protein Blood Type 01/22/23 <del>?</del> 11w 2d 224 lb (+4 lb) 224 lb <del>?</del> 02/04/23 <del>?</del> 13w 1d 223 lb (+3 lb) 160 116/72 223 lb <del>?</del> 03/10/23 <del>?</del> 18w 0d 223 lb (+3 lb) 150 110/70 223 lb <del>?</del> 04/07/23 <del>?</del> 22w 0d 229 lb (+9 lb) 24 150 100/60 229 lb <del>?</del> Notes Visit Date: 04/07/23 Last Updated by: Inez Melgar CNM Note author: Inez Melgar CNM. 22wk. RUPESH. Taking PNV, Doing well with no concerns. Good appetite, stays well hydrated. Denies any LOF, VB, abd. pain, or urinary symptoms. She completed the FAS sent reports she is having a baby girl. Counseled regard regarding flu vaccine patient declined. Reviewed: PTL s/s-LOF/Ctx's/VB, when to seek emergent care. discomforts, self help measures. FM and when to call the office for further eval. Encouraged a healthy well balanced diet, regular walking/exercise in . Hydrate well, 8-10 glasses of water daily. RTO 4wks. Plan glucose between 26 and 28 week. Visit Date: 03/10/23 Last Updated by: Yoel Bhat MD Presenting for visit with no complaints, no cramping, leakage of fluid or bleeding. The the patient is starting to feel movements. On vitamin A/P: 18 week of gestation Discussed with the patient options for chromosomal abnormality screening versus counseling. Options discussed with the patient's include but not limited to: Cell free DNA, 1st trimester combined screening, quad screen, integrated, serum integrated, sequential stepwise, contingent screening, nuchal translucency alone , anomaly scan, in addition to invasive diagnostic test. The approximate gestational age range for screening, detection rate for chromosomal abnormalities, screen positive rate, advantages, disadvantages and limitations associated with each test/approach were discussed with the patient . The availability of invasive diagnostic tests were reviewed with the patient and their sensitivity in addition to the associated risk of miscarriage were discussed with the patient. The differences between screening tests and diagnostic tests were explained to the patient . After our discussion, the patient declined invasive genetic testing and opted to stay with the First trimester screening that is based on cell-free DNA or non-invasive testing (NIPT) which was already done and negative. Discussed with the patient the results of her first-trimester screen being low risk for trisomy 21, 13 and 18, explained to the patient that this test does not screen for open neural tube defects and recommendation is to measure maternal serum alpha fetoprotein in the 2nd trimester optimally between 16-18 week in addition to a anomaly screen to screen for neural tube defect. Quadruple screen ordered and anomalies scan is in the process of being scheduled based Instructions given the patient to call in case of cramping and or bleeding, follow-up in 4 weeks Visit Date: 02/04/23 Last Updated by: Inez Melgar CNM OB Note author: Inez Melgar CNM/Jada Wilkersonon medical artist 13.1 wk. PNV. Good FM, no LOF or VB. Reports taking PNV gummies without iron. Has concerns of '' bubbles '' on her back/flank that come and go, not present today. Discussed: Advised to do Glucose testing on Thursday her day off, same day as the NT is booked. Monitor rash and if become more bothersome contact office: referral to Abalone Diver or see PCP when rash is present. BV testing and GC/CT panel done today. Await results and treat accordingly. Advised to eat healthy and stay hydrated. Increase iron enriched foods. Reviewed when to call for any VB. Discussed to call the service here for any emergencies/deliveries to be directed to [facility]. RTO 4wk. 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 She is a pleasant 27 year old with LMP 11/04/22 and BRAEDEN 08/11/23 which correlates exactly with US on 01/16/23 at 10w3d, BRAEDEN 08/11/23 and GA today of 11w3d today. Short interval was unplanned but pt wishes to continue. Pt's son will be ~1 year old when baby #2 is born. FOB is the same for both pregnancies. He is supportive. BMI is 38.8 and early glucose has been added to labs. Pt is scheduled for OB PE 02/04/23. Jodi has some nausea but she is managing well. She is on PNV and has been prescribed Vit B6 for nausea but has not started the medication. She is also taking sucralfate and omeprazole for heartburn. She has h/o anxiety and depression, does not have a counselor but reports her boyfriend and family are very supportive. Pt does report she has a half-brother who has a trach and G-tube, nonambulatory and nonverbal but she is not sure of the reason. She will try and find out the problem. Pt also mentioned that she has had diarrhea for a few weeks. We discussed adding fiber to her diet and was advised to discuss this further at her OB PE. Pt denies abd pain or blood per rectum. Pt was given the folder. We discussed danger signs, MD availability 24/11 and how to reach the MD after hours. She is aware that she will deliver at [facility] and have ultrasounds there as well. Pt was also advised of need to transfer to a [facility] practice if her becomes high-risk. Anticipate another vaginal delivery. No complications with her first or delivery. Pt advised that labs, including early glucose have been ordered and she will have them done orion. Advised to decrease sweets and carbs night before and morning of testing. Will schedule NT US and 1st trimester screening at [facility]. Pt verbalizes understanding and agrees with plan. All of her questions were answered to the best of my ability. Results AMB Urinalysis, Automated UA Leukoctes 1 Venkat/uL Last Edit by KASSIDY Gutiérrez on 04/07/23 11:19 UA Nitrite Negative Last Edit by Rhoda Washburn Magda on 04/07/23 11:19 UA Urobilinogen 0 mg/dL Last Edit by Rhoda Washburn [facility] on 04/07/23 11:19 UA Protein 1 mg/dL Last Edit by Rhoda Washburn Magda on 04/07/23 11:19 UA pH 6.0 Last Edit by Rhoda Washburn [facility] on 04/07/23 11:19 UA Blood 0 Av/uL Last Edit by Rhoda Washburn Magda on 04/07/23 11:19 UA Specific [place] 1.025 Last Edit by KASSIDY Gutiérrez on 04/07/23 11:19 UA Ketone Negative Last Edit by Rhoda Washburn [facility] on 04/07/23 11:19 UA Bilirubin 0 mg/dL Last Edit by Rhoda Washburn [facility] on 04/07/23 11:19 UA Glucose 0 mg/dL Last Edit by Rhoda Washburn [facility] on 04/07/23 11:19 Results Reviewed Results Reviewed: Laboratory Last Values Urine pH (Auto) 6.0 04/07/23 11:18 Specific [place] (Auto) 1.025 04/07/23 11:18 Urine Protein (Auto) 1 mg/dL 04/07/23 11:18 Glucose (UA)(Auto) 0 mg/dL 04/07/23 11:18 Urine Ketones (Auto) Negative 04/07/23 11:18 Urine Blood (Auto) 0 Av/uL 04/07/23 11:18 Urine Nitrite (Auto) Negative 04/07/23 11:18 Urine Bilirubin (Auto) 0 mg/dL 04/07/23 11:18 Urine Urobilinogen (Auto) 0 mg/dL 04/07/23 11:18 Leukocyte Esterase (Auto) 1 Venkat/uL 04/07/23 11:18 Coding Level of Care Code [place] Assessment & Plan Assessment & Plan Orders: Orders Glucose 1 Hour PP 50gm Dose Today Z34.90 - Encounter for supervision of normal , unspecified, unspecified trimester Syphilis Screen Today Z20.2 - Contact with and (suspected) exposure to infections with a predominantly sexual mode of transmission, Z34.90 - Encounter for supervision of normal , unspecified, unspecified trimester AMB Urinalysis Automated Today Z34.90 - Encounter for supervision of normal , unspecified, unspecified trimester Complete Blood Count no Diff Today Z34.90 - Encounter for supervision of normal , unspecified, unspecified trimester
[2023-04-07 09:22] VITALS: BP 100/60; BMI 39.3
== END 2023-04-07 10:10 | disposition home or self-care (01) ==
LOC: HO.HWS 09:16
PROVIDERS: Visit Provider Advanced Practice Midwife
DX: Z34.90 Encounter for supervision of normal pregnancy, unspecified, unspecified trimester (principal)
CPT/HCPCS: 25942

== ENCOUNTER → 2023-04-07 09:16 | Outpatient (BNVA) | payer BC, MEDICAID, SELFPAY | PROVIDERS: Visit Provider Advanced Practice Midwife | DX: O99.212 Obesity complicating pregnancy, second trimester (principal); E66.9 Obesity, unspecified; O99.012 Anemia complicating pregnancy, second trimester; D64.9 Anemia, unspecified; Z3A.22 22 weeks gestation of pregnancy | CPT/HCPCS: 81003; 99212 ==

== ENCOUNTER 2023-05-06 08:12 | Outpatient (AMB) | payer BC, MEDICAID, SELFPAY ==
[2023-05-06 08:13] VITALS: BP 104/60; BMI 39.8
--- NOTE | 2023-05-06 08:13 | A.OFFVISPN_ITS ---
Intake Vital Signs 05/06/23 08:13 Height 5 ft 4 in Weight 232 lb BMI 39.8 BP 104/60 Intake Visit Reasons: RUPESH Allergies amoxicillin [Amoxicillin] Allergy (Unknown, Verified 05/06/23 08:13) UNKNOWN Patient : Yes PFSH Medical History Nausea Missed menses Positive test Encounter for supervision of normal in third trimester Screening for depression Fatigue Cervical cancer screening Well woman exam with routine gynecological exam Early stage of Genetic screening Adult BMI > 30 History of MRSA infection Depression with anxiety Migraine Family History Brother Tracheostomy present Feeding by G-tube Social History Household Members: Children Both parents involved: Yes Caregiver staying overnight: No Housing: House Are you a primary home care attendant to a significant other at home: No Do you presently have visiting nurse or other home services: No 75 years or older and lives alone: No Alcohol intake: never Patient Tobacco Use Status: Never used Tobacco Special cuong needs: No Agree to transfusion: Yes service: No Current occupational status: employed 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 Date GA/Weeks Outcome Route Wt Inf Gender Labor Leena Anesthesia Location Provider Complicate 08/27/22 39 live - full term vaginal delivery 7 lb 3 oz Male none [facility] n one Visit BRAEDEN Calculator Estimated Delivery Date Method Current WG Current Estimate 08/11/23 LMP (Certain) 26w 1d Other Estimates 08/11/23 Ultrasound #1 26w 1d Expected Delivery Route/Plan Specific Issues/Plans 27Yr. old G 2 P 1 EDC: 08/11/2023 Blood type: A pos Problem List: 1. Closely spaced pregnancies delivered August 2022 2. obesity 3. Anemia-does not tolerate iron. Advised iron rich foods on 02/04/2023. Testing: [facility]/and or First Tri screen: risk NT scan: Booked 02/09/2023 AFP: FAS: Normal Glucose: early 75 28 wk glucose: CBC 1st Tri: 11.1 28 wk. 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 Transportation: own Labor, and Concerns: Labor support: Plan: Feeding Plans: control: OB Visit Log Initial Weight: 220 lb Date -?-?-?-?-?-?-?-?-?-?-?-?- EGA Weight Gest Week Fundal Ht Present FHR move Efface % Edema BP PrePreg We Weight GTT -?-?-?-?-?-?-?-?-?-?-?-?- Glucose LV Protein Blood Type 01/22/23 -?-?-?-?-?-?-?-?-?-?-?-?- 11w 2d 224 lb (+4 lb) 224 lb -?-?-?-?-?-?-?-?-?-?-?-?- 02/04/23 -?-?-?-?-?-?-?-?-?-?-?-?- 13w 1d 223 lb (+3 lb) 160 116/72 223 lb -?-?-?-?-?-?-?-?-?-?-?-?- 03/10/23 -?-?-?-?-?-?-?-?-?-?-?-?- 18w 0d 223 lb (+3 lb) 150 110/70 223 lb -?-?-?-?-?-?-?-?-?-?-?-?- 04/07/23 -?-?-?-?-?-?-?-?-?-?-?-?- 22w 0d 229 lb (+9 lb) 24 150 100/60 229 lb -?-?-?-?-?-?-?-?-?-?-?-?- 05/06/23 -?-?-?-?-?-?-?-?-?-?-?-?- 26w 1d 232 lb (+12 lb) 26 150 active 104/60 232 lb -?-?-?-?-?-?-?-?-?-?-?-?- Notes Visit Date: 05/06/23 Last Updated by: Inez Melgar CNM Note author: Inez Melgar CNM. 26.1wk. RUPESH. Taking PNV, Doing well with no concerns. Good appetite w/iron enriched foods, stays well hydrated. Denies any LOF, VB, abd. pain or urinary symptoms. Good FM. She reports small amt. of blood from anus with wiping, had the same during her last . Denies any constipation, reports more frequency of soft/watery stools. Denies hemorrhoids, she defers exam until her next visit. Reviewed: PTL s/s-LOF/Ctx's/VB, rectal bleeding increase, when to seek emergent care. Referral to GI sent. discomforts, self help measures. [facility]MC and when to call for further evaluation. Encouraged a healthy well balanced diet, regular walking/exercise in . Hydrate well, 8-10 glasses of water daily. Glucose testing in the next 2 wks Note for work per pt. request of lifting limits provided. RTO 2wks. Visit Date: 04/07/23 Last Updated by: Inez Melgar CNM Note author: Inez Melgar CNM. 22wk. RUPESH. Taking PNV, Doing well with no concerns. Good appetite, stays well hydrated. Denies any LOF, VB, abd. pain, or urinary symptoms. She completed the FAS sent reports she is having a baby girl. Counseled regard regarding flu vaccine patient declined. Reviewed: PTL s/s-LOF/Ctx's/VB, when to seek emergent care. discomforts, self help measures. FM and when to call the office for further eval. Encouraged a healthy well balanced diet, regular walking/exercise in . Hydrate well, 8-10 glasses of water daily. RTO 4wks. Plan glucose between 26 and 28 week. Visit Date: 03/10/23 Last Updated by: Yoel Bhat MD Presenting for visit with no complaints, no cramping, leakage of fluid or bleeding. The the patient is starting to feel movements. On vitamin A/P: 18 week of gestation Discussed with the patient options for chromosomal abnormality screening versus counseling. Options discussed with the patient's include but not limited to: Cell free DNA, 1st trimester combined screening, quad screen, integrated, serum integrated, sequential stepwise, contingent screening, nuchal translucency alone , anomaly scan, in addition to invasive diagnostic test. The approximate gestational age range for screening, detection rate for chromosomal abnormalities, screen positive rate, advantages, disadvantages and limitations associated with each test/approach were discussed with the patient . The availability of invasive diagnostic tests were reviewed with the patient and their sensitivity in addition to the associated risk of miscarriage were discussed with the patient. The differences between screening tests and diagno stic tests were explained to the patient . After our discussion, the patient declined invasive genetic testing and opted to stay with the First trimester screening that is based on cell-free DNA or non-invasive testing (NIPT) which was already done and negative. Discussed with the patient the results of her first-trimester screen being low risk for trisomy 21, 13 and 18, explained to the patient that this test does not screen for open neural tube defects and recommendation is to measure maternal serum alpha fetoprotein in the 2nd trimester optimally between 16-18 week in addition to a anomaly screen to screen for neural tube defect. Quadruple screen ordered and anomalies scan is in the process of being scheduled based Instructions given the patient to call in case of cramping and or bleeding, follow-up in 4 weeks Visit Date: 02/04/23 Last Updated by: Inez Melgar CNM OB Note author: Inez Melgar CNM/Jada Adiel medical assistant prn 13.1 wk. PNV. Good FM, no LOF or VB. Reports taking PNV gummies without iron. Has concerns of '' bubbles '' on her back/flank that come and go, not present today. Discussed: Advised to do Glucose testing on Thursday her day off, same day as the NT is booked. Monitor rash and if become more bothersome contact office: referral to Director Clinical Research or see PCP when rash is present. BV testing and GC/CT panel done today. Await results and treat accordingly. Advised to eat healthy and stay hydrated. Increase iron enriched foods. Reviewed when to call for any VB. Discussed to call the service here for any emergencies/deliveries to be directed to [facility]. RTO 4wk. 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 She is a pleasant 27 year old with LMP 11/04/22 and BRAEDEN 08/11/23 which correlates exactly with US on 01/16/23 at 10w3d, BRAEDEN 08/11/23 and GA today of 11w3d today. Short interval was unplanned but pt wishes to continue. Pt's son will be ~1 year old when baby #2 is born. FOB is the same for both pregnancies. He is supportive. BMI is 38.8 and early glucose has been added to labs. Pt is scheduled for OB PE 02/04/23. Jodi has some nausea but she is managing well. She is on PNV and has been prescribed Vit B6 for nausea but has not started the medication. She is also taking sucralfate and omeprazole for heartburn. She has h/o anxiety and depression, does not have a counselor but reports her boyfriend and family are very supportive. Pt does report she has a half-brother who has a trach and G- tube, nonambulatory and nonverbal but she is not sure of the reason. She will try and find out the problem. Pt also mentioned that she has had diarrhea for a few weeks. We discussed adding fiber to her diet and was advised to discuss this further at her OB PE. Pt denies abd pain or blood per rectum. Pt was given the folder. We discussed danger signs, MD availability 24/11 and how to reach the MD after hours. She is aware that she will deliver at [facility] and have ultrasounds there as well. Pt was also advised of need to transfer to a [facility] practice if her becomes high-risk. Anticipate another vaginal delivery. No complications with her first or delivery. Pt advised that labs, including early glucose have been ordered and she will have them done orion. Advised to decrease sweets and carbs night before and morning of testing. Will schedule NT US and 1st trimester screening at [facility]. Pt verbalizes understanding and agrees with plan. All of her questions were answered to the best of my ability. Results AMB Urinalysis, Automated UA Leukoctes 0 Venkat/uL Last Edit by KASSIDY Gutiérrez on 05/06/23 08:57 UA Nitrite Negative Last Edit by Rhoda Washburn A on 05/06/23 08:57 UA Urobilinogen 0 mg/dL Last Edit by Rhoda Washburn Magda on 05/06/23 08:5 7 UA Protein 0.5 mg/dL Last Edit by Rhoda Washburn Magda on 05/06/23 08:57 UA pH 6.5 Last Edit by [facility]oda [facility] on 05/06/23 08:57 UA Blood 0 Av/uL Last Edit by Rhoda [facility] on 05/06/23 08:57 UA Specific Lolita 1.015 Last Edit by Rhoda Washburn Magda on 05/06/23 08:57 UA Ketone Negative Last Edit by Rhoda Washburn Magda on 05/06/23 08:57 UA Bilirubin 0 mg/dL Last Edit by Rhoda Washburn Magda on 05/06/23 08:57 UA Glucose 0 mg/dL Last Edit by Rhoda [facility] on 05/06/23 08:57 Results Reviewed Results Reviewed: Laboratory Last Values Urine pH (Auto) 6.5 05/06/23 08:56 Specific Lolita (Auto) 1.015 05/06/23 08:56 Urine Protein (Auto) 0.5 mg/dL 05/06/23 08:56 Glucose (UA)(Auto) 0 mg/dL 05/06/23 08:56 Urine Ketones (Auto) Negative 05/06/23 08:56 Urine Blood (Auto) 0 Av/uL 05/06/23 08:56 Urine Nitrite (Auto) Negative 05/06/23 08:56 Urine Bilirubin (Auto) 0 mg/dL 05/06/23 08:56 Urine Urobilinogen (Auto) 0 mg/dL 05/06/23 08:56 Leukocyte Esterase (Auto) 0 Venkat/uL 05/06/23 08:56 Coding Level of Care Code [place] Assessment & Plan Assessment & Plan Orders: Orders AMB Urinalysis Automated Today Z34.90 - Encounter for supervision of normal , unspecified, unspecified trimester Referrals Gastroenterology Referral K62.5 - Hemorrhage of anus and rectum, Z34.90 - Encounter for supervision of normal , unspecified, unspecified trimester
== END 2023-05-06 08:49 | disposition home or self-care (01) ==
LOC: HO.HWS 08:12
PROVIDERS: Visit Provider Advanced Practice Midwife
DX: Z34.90 Encounter for supervision of normal pregnancy, unspecified, unspecified trimester (principal)
CPT/HCPCS: 25942

== ENCOUNTER → 2023-05-06 08:12 | Outpatient (BNVA) | payer BC, MEDICAID, SELFPAY | PROVIDERS: Visit Provider Advanced Practice Midwife | DX: O99.012 Anemia complicating pregnancy, second trimester (principal); D64.9 Anemia, unspecified; O99.612 Diseases of the digestive system complicating pregnancy, second trimester; K62.5 Hemorrhage of anus and rectum; O99.212 Obesity complicating pregnancy, second trimester; Z3A.26 26 weeks gestation of pregnancy | CPT/HCPCS: 81003; 99212 ==

== ENCOUNTER 2023-05-15 13:35 | Outpatient (REF) | payer BC, MEDICAID, SELFPAY ==
[2023-05-15 15:35] LABS: Hematocrit 30.1 % (37.0-47.0); Hemoglobin 9.8 g/dl (12.0-16.0); Mean Corpuscular HGB Conc 32.6 g/dl (31.0-35.0); Mean Corpuscular Hemoglobin 28.3 pg (27.0-33.0); Mean Platelet Volume 11.5 fL (9.4-12.3); Platelet Count 235 X10*3/uL (160-400); Red Blood Count 3.46 X10*6/uL (4.20-5.50); Red Cell Distribution Width 13.4 % (11.0-16.0); White Blood Count 9.5 X10*3/uL (4.8-10.8)
[2023-05-15 16:36] LABS: Glucose 1 Hour PP 50gm Dose 83 mg/dL (60-140)
[2023-05-17 04:35] LABS: Syphilis Screen Nonreactive (Nonreactive)
== END 2023-05-15 13:36 | disposition home or self-care (01) ==
LOC: HO.LAB 13:35
PROVIDERS: Visit Provider Advanced Practice Midwife
DX: Z34.90 Encounter for supervision of normal pregnancy, unspecified, unspecified trimester (principal); Z20.2 Contact with and (suspected) exposure to infections with a predominantly sexual mode of transmission
CPT/HCPCS: 36415; 82950; 85027; 86780

== ENCOUNTER 2023-05-19 13:24 | Outpatient (AMB) | payer BC, MEDICAID, SELFPAY ==
[2023-05-19 13:25] VITALS: BP 100/60; BMI 40.0
--- NOTE | 2023-05-19 13:25 | A.OFFVISPN_ITS ---
Intake Vital Signs 05/19/23 13:25 Height 5 ft 4 in Weight 233 lb BMI 40.0 BP 100/60 Intake Visit Reasons: RUPESH Intake Note: EPDS 1 Allergies amoxicillin [Amoxicillin] Allergy (Unknown, Verified 05/19/23 13:25) UNKNOWN Patient : Yes PFSH Medical History (Updated 05/19/23 @ 14:13 by Inez Melgar CNM) History of oligohydramnios Nausea Missed menses Positive test Encounter for supervision of normal in third trimester Screening for depression Fatigue Cervical cancer screening Well woman exam with routine gynecological exam Early stage of Genetic screening Adult BMI > 30 History of MRSA infection Depression with anxiety Migraine Family History Brother Tracheostomy present Feeding by G-tube Social History Household Members: Children Both parents involved: Yes Caregiver staying overnight: No Housing: House Are you a primary youth care worker to a significant other at home: No Do you presently have visiting nurse or other home services: No 75 years or older and lives alone: No Alcohol intake: never Patient Tobacco Use Status: Never used Tobacco Special cuong needs: No Agree to transfusion: Yes service: No Current occupational status: employed 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 Date GA/Weeks Outcome Route Wt Inf Gender Labor Leena Anesthesia Location Provider Complicate 08/27/22 39 live - full term vaginal delivery 7 lb 3 oz Male none [facility] none Questionnaire Newport Depression Newport Depression Scale I have been able to laugh and see the funny side of things: As much as I always could I have looked forward with enjoyment to things: As much as I ever did I have blamed myself unnecessarily when things went wrong: No, never I have been anxious or worried for no reason: No, not at all I have felt scared of panicky for no very good reason at all: No, not so much Things have been getting on top of me: No, I have been coping as well as ever I have been so unhappy that I have had difficulty sleeping: No, not at all I have felt sad or miserable: No, not at all I have been so unhappy that I have been crying: No, never The thought of harming myself has occurred to me: Never 1 Visit BRAEDEN Calculator Estimated Delivery Date Method Current WG Current Estimate 08/11/23 LMP (Certain) 28w 0d Other Estimates 08/11/23 Ultrasound #1 28w 0d Expected Delivery Route/Plan Specific Issues/Plans 27Yr. old G 2 P 1 EDC: 08/11/2023 Blood type: A pos Problem List: 1. Closely spaced pregnancies delivered August 2022 2. obesity 3. Anemia-does not tolerate iron. Advised iron rich foods on 02/04/2023. Testing: Panorama/and or First Tri screen: risk NT scan: Booked 02/09/2023 AFP: FAS: Normal Glucose: early 75 28 wk glucose: CBC 1st Tri: 11.1 28 wk. 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-?-?-?-?-?- 22w 0d 229 lb (+9 lb) 24 150 100/60 229 lb -?-?-?-?-?-?-?-?-?-?-?-?- 05/06/23 -?-?-?-?-?-?-?-?-?-?-?-?- 26w 1d 232 lb (+12 lb) 26 150 active 104/60 232 lb -?-?-?-?-?-?-?-?-?-?-?-?- 05/19/23 -?-?-?-?-?-?-?-?-?-?-?-?- 28w 0d 233 lb (+13 lb) 28 140 active 100/60 233 lb -?-?-?-?-?-?-?-?-?-?-?-?- Notes Visit Date: 05/19/23 Last Updated by: Inez Melgar CNM Note author: Inez Melgar CNM. 28wk. RUPESH. Taking PNV, Doing well with concerns: had a few episodes of feeling lightheaded, a wave of heat and felt a numbing sensation, while sitting and standing. Denies any chest pain, shortness breath, dizziness, heart palpitations. Denies any dehydration. History of anemia has not started her iron yet due to concerns of GI effects from her last . Good appetite. Denies any LOF, VB, abd. pain or urinary symptoms. Good FM. History of oligohydramnios with her last . Twenty-eight week labs reviewed. BS-83, Hgb. 9.8 Reviewed: Anemia, oral iron verses iron infusion. Ref: Heme/Onc for iron infusion. PTL s/s-LOF/Ctx's/VB, when to seek emergent care. discomforts, self help measures. FMC and when to call for further evaluation. Encouraged a healthy well balanced diet, regular walking/exercise in . Hydrate well, 8-10 glasses of water daily. Ultrasound for fluid check. RTO 2wks. Visit Date: 05/06/23 Last Updated by: Inez Melgar CNM Note author: Inez Melgar CNM. 26.1wk. RUPESH. Taking PNV, Doing well with no concerns. Good appetite w/iron enriched foods, stays well hydrated. Denies any LOF, VB, abd. pain or urinary symptoms. Good FM. She reports small amt. of blood from anus with wiping, had the same during her last . Denies any constipation, reports more frequency of soft/watery stools. Denies hemorrhoids, she defers exam until her next visit. Reviewed: PTL s/s-LOF/Ctx's/VB, rectal bleeding increase, when to seek emergent care. Referral to GI sent. discomforts, self help measures. FMC and when to call for further evaluation. Encouraged a healthy well balanced diet, regular walking/exercise in . Hydrate well, 8-10 glasses of water daily. Glucose testing in the next 2 wks Note for work per pt. request of lifting limits provided. RTO 2wks. Visit Date: 04/07/23 Last Updated by: Inez Melgar CNM Note author: Inez Melgar CNM. 22wk. RUPESH. Taking PNV, Doing well with no concerns. Good appetite, stays well hydrated. Denies any LOF, VB, abd. pain, or urinary symptoms. She completed the FAS sent reports she is having a baby girl. Counseled regard regarding flu vaccine patient declined. Reviewed: PTL s/s-LOF/Ctx's/VB, when to seek emergent care. discomforts, self help measures. FM and when to call the office for further eval. Encouraged a healthy well balanced diet, regular walking/exercise in . Hydrate well, 8-10 glasses of water daily. RTO 4wks. Plan glucose between 26 and 28 week. Visit Date: 03/10/23 Last Updated by: Yoel Bhat MD Presenting for visit with no complaints, no cramping, leakage of fluid or bleeding. The the patient is starting to feel movements. On vitamin A/P: 18 week of gestation Discussed with the patient options for chromosomal abnormality screening versus counseling. Options discussed with the patient's include but not limited to: Cell free DNA, 1st trimester combined screening, quad screen, integrated, serum integrated, sequential stepwise, contingent screening, nuchal translucency alone , anomaly scan, in addition to invasive diagnostic test. The approximate gestational age range for screening, detection rate for chromosomal abnormalities, screen positive rate, advantages, disadvantages and limitations associated with each test/approach were discussed with the patient . The availability of invasive diagnostic tests were reviewed with the patient and their sensitivity in addition to the associated risk of miscarriage were discussed with the patient. The differences between screening tests and diagnostic tests were explained to the patient . After our discussion, the patient declined invasive genetic testing and opted to stay with the First trimester screening that is based on cell-free DNA or non-invasive testing (NIPT) which was already done and negative. Discussed with the patient the results of her first-trimester screen being low risk for trisomy 21, 13 and 18, explained to the patient that this test does not screen for open neural tube defects and recommendation is to measure maternal serum alpha fetoprotein in the 2nd trimester optimally between 16-18 week in addition to a anomaly screen to screen for neural tube defect. Quadruple screen ordered and anomalies scan is in the process of being scheduled based Instructions given the patient to call in case of cramping and or ble eding, follow-up in 4 weeks Visit Date: 02/04/23 Last Updated by: Inez Melgar CNM OB Note author: Inez Melgar CNM/Jada Chun certified medical assistant 13.1 wk. PNV. Good FM, no LOF or VB. Reports taking PNV gummies without iron. Has concerns of '' bubbles '' on her back/flank that come and go, not present today. Discussed: Advised to do Glucose testing on Thursday her day off, same day as the NT is booked. Monitor rash and if become more bothersome contact office: referral to [facility] or see PCP when rash is present. BV testing and GC/CT panel done today. Await results and treat accordingly. Advised to eat healthy and stay hydrated. Increase iron enriched foods. Reviewed when to call for any VB. Discussed to call the service here for any emergencies/deliveries to be directed to [facility]. RTO 4wk. 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 She is a pleasant 27 year old with LMP 11/04/22 and BRAEDEN 08/11/23 which correlates exactly with US on 01/16/23 at 10w3d, BRAEDEN 08/11/23 and GA today of 11w3d today. Short interval was unplanned but pt wishes to continue. Pt's son will be ~1 year old when baby #2 is born. FOB is the same for both pregnancies. He is supportive. BMI is 38.8 and early glucose has been added to labs. Pt is scheduled for OB PE 02/04/23. Jodi has some nausea but she is managing well. She is on PNV and has been prescribed Vit B6 for nausea but has not started the medication. She is also taking sucralfate and omeprazole for heartburn. She has h/o anxiety and depression, does not have a counselor but reports her boyfriend and family are very supportive. Pt does report she has a half-brother who has a trach and G- tube, nonambulatory and nonverbal but she is not sure of the reason. She will try and find out the problem. Pt also mentioned that she has had diarrhea for a few weeks. We discussed adding fiber to her diet and was advised to discuss this further at her OB PE. Pt denies abd pain or blood per rectum. Pt was given the folder. We discussed danger signs, MD availability 24/11 and how to reach the MD after hours. She is aware that [place] [facility] [place] there as well. Pt was also advised of need to transfer to a [facility] practice if her becomes high-risk. Anticipate another vaginal delivery. No complications with her first or delivery. Pt advised that labs, including early glucose have been ordered and she will have them done orion. Advised to decrease sweets and carbs night before and morning of testing. Will schedule NT US and 1st trimester screening [place] [facility] [place]. Pt verbalizes understanding and agrees with plan. All of her questions were answered to the best of my ability. Results AMB Urinalysis, Automated UA Leukoctes 0 Venkat/uL Last Edit by Rhoda Washburn [facility] on 05/19/23 13:49 UA Nitrite Negative Last Edit by Rhoda Washburn [facility] on 05/19/23 13:49 UA Urobilinogen 0 mg/dL Last Edit by Rhoda Washburn [facility] on 05/19/23 13:4 9 UA Protein 0 mg/dL Last Edit by Rhoda Washburn [facility] on 05/19/23 13:49 UA pH 6.0 Last Edit by Rhoda Washburn [facility] on 05/19/23 13:49 UA Blood 0 Av/uL Last Edit by Rhoda Washburn [facility] on 05/19/23 13:49 UA Specific Nebo 1.020 Last Edit by Rhoda Washburn [facility] on 05/19/23 13:49 UA Ketone Negative Last Edit by Rhoda Washburn [facility] on 05/19/23 13:49 UA Bilirubin 0 mg/dL Last Edit by Rhoda Washburn [facility] on 05/19/23 13:49 UA Glucose 0 mg/dL Last Edit by Rhoda Washburn [facility] on 05/19/23 13:49 Results Reviewed Results Reviewed: Laboratory Last Values Urine pH (Auto) 6.0 05/19/23 13:48 Specific Nebo (Auto) 1.020 05/19/23 13:48 Urine Protein (Auto) 0 mg/dL 05/19/23 13:48 Glucose (UA)(Auto) 0 mg/dL 05/19/23 13:48 Urine Ketones (Auto) Negative 05/19/23 13:48 Urine Blood (Auto) 0 Av/uL 05/19/23 13:48 Urine Nitrite (Auto) Negative 05/19/23 13:48 Urine Bilirubin (Auto) 0 mg/dL 05/19/23 13:48 Urine Urobilinogen (Auto) 0 mg/dL 05/19/23 13:48 Leukocyte Esterase (Auto) 0 Venkat/uL 05/19/23 13:48 Coding Level of Care Code Tarzan Assessment & Plan Assessment & Plan Orders: Orders US OB follow up Today Z87.59 - Personal history of other complications of , childbirth and the puerperium AMB Urinalysis Automated Today Z34.90 - Encounter for supervision of normal , unspecified, unspecified trimester Referrals Hematology & Oncology Referral O99.019 - Anemia complicating , unspecified trimester
== END 2023-05-19 14:35 | disposition home or self-care (01) ==
LOC: HO.HWS 13:24
PROVIDERS: Visit Provider Advanced Practice Midwife
DX: Z34.90 Encounter for supervision of normal pregnancy, unspecified, unspecified trimester (principal)
CPT/HCPCS: 25942; S3005

== ENCOUNTER → 2023-05-19 13:24 | Outpatient (BNVA) | payer BC, MEDICAID, SELFPAY | PROVIDERS: Visit Provider Advanced Practice Midwife | DX: O99.213 Obesity complicating pregnancy, third trimester (principal); E66.9 Obesity, unspecified; O99.013 Anemia complicating pregnancy, third trimester; D64.9 Anemia, unspecified; Z3A.28 28 weeks gestation of pregnancy | CPT/HCPCS: 81003; 99212 ==

== ENCOUNTER → 2023-05-28 11:09 | Outpatient (BNV) | payer BC, MEDICAID, SELFPAY | PROVIDERS: Referring Provider Advanced Practice Midwife; Visit Provider Internal Medicine Medical Oncology | DX: D64.9 Anemia, unspecified (principal) | CPT/HCPCS: 99204 ==

== ENCOUNTER 2023-06-05 14:07 | Outpatient (AMB) | payer BC, MEDICAID, SELFPAY ==
[2023-06-05 14:18] VITALS: BP 110/68; BMI 39.8
--- NOTE | 2023-06-05 14:18 | A.OFFVISPN_ITS ---
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 Required: No Information Interpreted: non-clinical & clinical Accompanied by: Self / Same As Patient Allergies amoxicillin [Amoxicillin] Allergy (Unknown, Verified 06/05/23 14:22) UNKNOWN Patient : Yes PFSH Medical History (Updated 05/28/23 @ 12:50 by Jody Albarran MD) History of oligohydramnios Nausea Missed menses Positive test Encounter for supervision of normal in third trimester Screening for depression Fatigue Cervical cancer screening Well woman exam with routine gynecological exam Early stage of Genetic screening Adult BMI > 30 History of MRSA infection Depression with anxiety Migraine Family History Brother Tracheostomy present Feeding by G-tube Social History (Updated 05/28/23 @ 11:18 by Shyla Guevara) Household Members: Children Both parents involved: Yes Caregiver staying overnight: No Housing: House Are you a primary lawn care specialist to a significant other at home: No Do you presently have visiting nurse or other home services: No 75 years or older and lives alone: No Alcohol intake: never Patient Tobacco Use Status: Never used Tobacco Special cuong needs: No Agree to transfusion: Yes service: No Current occupational status: employed 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 Date GA/Weeks Outcome Route Wt Inf Gender Labor Leena Anesthesia Location Provider Complicate 08/27/22 39 live - full term vaginal delivery 7 lb 3 oz Male none [facility] none Visit BRAEDEN Calculator Estimated Delivery Date Method Current WG Current Estimate 08/11/23 LMP (Certain) 30w 3d Other Estimates 08/11/23 Ultrasound #1 30w 3d Expected Delivery Route/Plan Specific Issues/Plans 27Yr. old G 2 P 1 EDC: 08/11/2023 Blood type: A pos Problem List: 1. Closely spaced pregnancies delivered August 2022 2. obesity 3. Anemia-does not tolerate iron. Advised iron rich foods on 02/04/2023. Testing: [facility]/and or First Tri screen: risk NT scan: Booked 02/09/2023 AFP: FAS: Normal Glucose: early 75 28 wk glucose: CBC 1st Tri: 11.1 28 wk. 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 Transportation: own Labor, and Concerns: Labor support: Plan: Feeding Plans: breast feeding control: OB Visit Log Initial Weight: 220 lb Date -?-?-?-?-?-?-?-?-?-?-?-?- EGA Weight Gest Week Fundal Ht Present FHR move Efface % Edema BP PrePreg We Weight GTT -?-?-?-?-?-?-?-?-?-?-?-?- Glucose LV Protein Blood Type 01/22/23 -?-?-?-?-?-?-?-?-?-?-?-?- 11w 2d 224 lb (+4 lb) 224 lb -?-?-?-?-?-?-?-?-?-?-?-?- 02/04/23 -?-?-?-?-?-?-?-?-?-?-?-?- 13w 1d 223 lb (+3 lb) 160 116/72 223 lb -?-?-?-?-?-?-?-?-?-?-?-?- 03/10/23 -?-?-?-?-?-?-?-?-?-?-?-?- 18w 0d 223 lb (+3 lb) 150 110/70 223 lb -?-?-?-?-?-?-?-?-?-?-?-?- 04/07/23 -?-?-?-?-?-?-?-?-?-?-?-?- 22w 0d 229 lb (+9 lb) 24 150 100/60 229 lb -?-?-?-?-?-?-?-?-?-?-?-?- 05/06/23 -?-?-?-?-?-?-?-?-?-?-?-?- 26w 1d 232 lb (+12 lb) 26 150 active 104/60 232 lb -?-?-?-?-?-?-?-?-?-?-?-?- 05/19/23 -?-?-?-?-?-?-?-?-?-?-?-?- 28w 0d 233 lb (+13 lb) 28 140 active 100/60 233 lb -?-?-?-?-?-?-?-?-?-?-?-?- 06/05/23 -?-?-?-?-?-?-?-?-?-?--?-?- 30w 3d 232 lb (+12 lb) 32 140 active 110/68 232 lb -?-?-?-?-?-?-?-?-?-?-?-?- Notes Visit Date: 06/05/23 Last Updated by: Inez Melgar CNM Note author: Inez Melgar CNM. 30.3wk. RUPESH. Taking PNV, Doing well with no concerns. Good appetite, stays well hydrated. Denies any LOF, VB, abd. pain or urinary symptoms. Good FM. Has an iron infusion next week. She reports heartburn, taking Tums not completely effective though. Reviewed: PTL s/s-LOF/Ctx's/VB, when to seek emergent care. discomforts, self help measures. [facility]MC and when to call for further evaluation. Encouraged a healthy well balanced diet, regular walking/exercise in . Hydrate well, 8-10 glasses of water daily. RTO 2wks. Visit Date: 05/19/23 Last Updated by: Inez Melgar CNM Note author: Inez Melgar CNM. 28wk. RUPESH. Taking PNV, Doing well with concerns: had a few episodes of feeling lightheaded, a wave of heat and felt a numbing sensation, while sitting and standing. Denies any chest pain, shortness breath, dizziness, heart palpitations. Denies any dehydration. History of anemia has not started her iron yet due to concerns of GI effects from her last . Good appetite. Denies any LOF, VB, abd. pain or urinary symptoms. Good FM. History of oligohydramnios with her last . Twenty-eight week labs reviewed. BS-83, Hgb. 9.8 Reviewed: Anemia, oral iron verses iron infusion. Ref: Heme/Onc for iron infusion. PTL s/s-LOF/Ctx's/VB, when to seek emergent care. discomforts, self help measures. FMC and when to call for further evaluation. Encouraged a healthy well balanced diet, regular walking/exercise in . Hydrate well, 8-10 glasses of water daily. Ultrasound for fluid check. RTO 2wks. Visit Date: 05/06/23 Last Updated by: Inez Melgar CNM Note author: Inez Melgar CNM. 26.1wk. RUPESH. Taking PNV, Doing well with no concerns. Good appetite w/iron enriched foods, stays well hydrated. Denies any LOF, VB, abd. pain or urinary symptoms. Good FM. She reports small amt. of blood from anus with wiping, had the same during her last . Denies any constipation, reports more frequency of soft/watery stools. Denies hemorrhoids, she defers exam until her next visit. Reviewed: PTL s/s-LOF/Ctx's/VB, rectal bleeding increase, when to seek emergent care. Referral to GI sent. discomforts, self help measures. FMC and when to call for further evaluation. Encouraged a healthy well balanced diet, regular walking/exercise in . Hydrate well, 8-10 glasses of water daily. Glucose testing in the next 2 wks Note for work per pt. request of lifting limits provided. RTO 2wks. Visit Date: 04/07/23 Last Updated by: Inez Melgar CNM Note author: Inez Melgar CNM. 22wk. RUPESH. Taking PNV, Doing well with no concerns. Good appetite, stays well hydrated. Denies any LOF, VB, abd. pain, or urinary symptoms. She completed the FAS sent reports she is having a baby girl. Counseled regard regarding flu vaccine patient declined. Reviewed: PTL s/s-LOF/Ctx's/VB, when to seek emergent care. discomforts, self help measures. FM and when to call the office for further eval. Encouraged a healthy well balanced diet, regular walking/exercise in . Hydrate well, 8-10 glasses of water daily. RTO 4wks. Plan glucose between 26 and 28 week. Visit Date: 03/10/23 Last Updated by: Yoel Bhat MD Presenting for visit with no complaints, no cramping, leakage of fluid or bleeding. The the patient is starting to feel movements. On vitamin A/P: 18 week of gestation Discussed with the patient options for chromosomal abnormality screening versus counseling. Options discussed with the patient's include but not limited to: Cell free DNA, 1st trimester combined screening, quad screen, integrated, serum integrated, sequential stepwise, contingent screening, nuchal translucency alone , anomaly scan, in addition to invasive diagnostic test. The approximate gestational age range for screening, detection rate for chromosomal abnormalities, screen positive rate, advantages, disadvantages and limitations associated with each test/approach were discussed with the patient . The availability of invasive diagnostic tests were reviewed with the patient and their sensitivity in addition to the associated risk of miscarriage were discussed with the patient. The differences between screening tests and diagnostic tests were explained to the patient . After our discussion, the patient declined invasive genetic testing and opted to stay with the First trimester screening that is based on cell-free DNA or non-invasive testing (NIPT) which was already done and negative. Discussed with the patient the results of her first-trimester screen being low risk for trisomy 21, 13 and 18, explained to the patient that this test does not screen for open neural tube defects and recommendation is to measure maternal serum alpha fetoprotein in the 2nd trimester optimally between 16-18 week in addition to a anomaly screen to screen for neural tube defect. Quadruple screen ordered and anomalies scan is in the process of being scheduled based Instructions given the patient to call in case of cramping and or bleeding, follow-up in 4 weeks Visit Date: 02/04/23 Last Updated by: Inez Melgar CNM OB Note author: Inez Melgar CNM/Jada Chun director biomedical engineering 13.1 wk. PNV. Good FM, no LOF or VB. Reports taking PNV gummies without iron. Has concerns of '' bubbles '' on her back/flank that come and go, not present today. Discussed: Advised to do Glucose testing on Thursday her day off, same day as the NT is booked. Monitor rash and if become more bothersome contact office: referral to [facility] or see PCP when rash is present. BV testing and GC/CT panel done today. Await results and treat accordingly. Advised to eat healthy and stay hydrated. Increase iron enriched foods. Reviewed when to call for any VB. Discussed to call the service here for any emergencies/deliveries to be directed to [facility]. RTO 4wk. 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 She is a pleasant 27 year old with LMP 11/04/22 and BRAEDEN 08/11/23 which correlates exactly with US on 01/16/23 at 10w3d, BRAEDEN 08/11/23 and GA today of 11w3d today. Short interval was unplanned but pt wishes to continue. Pt's son will be ~1 year old when baby #2 is born. FOB is the same for both pregnancies. He is supportive. BMI is 38.8 and early glucose has been added to labs. Pt is scheduled for OB PE 02/04/23. Jodi has some nausea but she is managing well. She is on PNV and has been prescribed Vit B6 for nausea but has not started the medication. She is also taking sucralfate and omeprazole for heartburn. She has h/o anxiety and depression, does not have a counselor but reports her boyfriend and family are very supportive. Pt does report she has a half-brother who has a trach and G- tube, nonambulatory and nonverbal but she is not sure of the reason. She will try and find out the problem. Pt also mentioned that she has had diarrhea for a few weeks. We discussed adding fiber to her diet and was advised to discuss this further at her OB PE. Pt denies abd pain or blood per rectum. Pt was given the folder. We discussed danger signs, MD availability 24/11 and how to reach the MD after hours. She is aware that she will deliver at [facility] and have ultrasounds there as well. Pt was also advised of need to transfer to a [facility] practice if her becomes high-risk. Anticipate another vaginal delivery. No complications with her first or delivery. Pt advised that labs, including early glucose have been ordered and she will have them done orion. Advised to decrease sweets and carbs night before and morning of testing. Will schedule NT US and 1st trimester screening at [facility]. Pt verbalizes understanding and agrees with plan. All of her questions were answered to the best of my ability. Coding Level of Care Code [place] Assessment & Plan Assessment & Plan Medications: New famotidine (Pepcid AC) 10 mg PO BID PRN 180 tabs 0RF heartburn 90 days
== END 2023-06-05 15:12 | disposition home or self-care (01) ==
LOC: HO.HWS 14:07
PROVIDERS: Visit Provider Advanced Practice Midwife
DX: Z34.90 Encounter for supervision of normal pregnancy, unspecified, unspecified trimester (principal)
CPT/HCPCS: 25942

== ENCOUNTER → 2023-06-05 14:07 | Outpatient (BNVA) | payer BC, MEDICAID, SELFPAY | PROVIDERS: Visit Provider Advanced Practice Midwife | DX: O99.213 Obesity complicating pregnancy, third trimester (principal); O99.013 Anemia complicating pregnancy, third trimester; D64.9 Anemia, unspecified; Z3A.30 30 weeks gestation of pregnancy | CPT/HCPCS: 99212 ==

== ENCOUNTER 2023-06-11 | Outpatient (REF) | payer BC, MEDICAID, SELFPAY | END 2023-06-11 00:01 | disposition home or self-care (01) | LOC: HO.MDS | PROVIDERS: Visit Provider Internal Medicine Medical Oncology | DX: D50.9 Iron deficiency anemia, unspecified (principal) | CPT/HCPCS: 96365; J1756 ==

== ENCOUNTER 2023-06-18 15:00 | Outpatient (REF) | payer BC, MEDICAID, SELFPAY | END 2023-06-18 15:01 | disposition home or self-care (01) | LOC: HO.MDS 15:00 | PROVIDERS: Visit Provider Internal Medicine Medical Oncology | DX: D50.9 Iron deficiency anemia, unspecified (principal) | CPT/HCPCS: 96365; J1756 ==

== ENCOUNTER 2023-06-19 15:06 | Outpatient (AMB) | payer BC, MEDICAID, SELFPAY ==
[2023-06-19 15:10] VITALS: BP 124/60; BMI 41.2
--- NOTE | 2023-06-19 15:10 | A.OFFVISPN_ITS ---
Intake Vital Signs 06/19/23 15:10 Height 5 ft 4 in Weight 240 lb BMI 41.2 BP 124/60 Intake Visit Reasons: RUPESH Guest Experience Specialist Required: No Allergies amoxicillin [Amoxicillin] Allergy (Unknown, Verified 06/19/23 15:15) UNKNOWN Medication List - Last Reconciled 06/19/23 by Marci Reis CNM aspirin PO famotidine (Pepcid AC) 10 mg PO BID PRN 90 days PNV no.[id number] 400 mcg-35 mg- 25 mg-5 mg ( Gummies) 1 tab PO DAILY Is last menstrual period known: Yes Last menstrual period: 11/04/22 Post menopausal: No Patient : Yes PFS Medical History History of oligohydramnios Nausea Missed menses Positive test Encounter for supervision of normal in third trimester Screening for depression Fatigue Cervical cancer screening Well woman exam with routine gynecological exam Early stage of Genetic screening Adult BMI > 30 History of MRSA infection Depression with anxiety Migraine Family History Brother Tracheostomy present Feeding by G-tube Social History Household Members: Children Both parents involved: Yes Caregiver staying overnight: No Housing: House Are you a primary child care lead teacher to a significant other at home: No Do you presently have visiting nurse or other home services: No 75 years or older and lives alone: No Alcohol intake: never Patient Tobacco Use Status: Never used Tobacco Special cuong needs: No Agree to transfusion: Yes service: No Current occupational status: employed 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 Date GA/Weeks Outcome Route Wt Inf Gender Labor Leena Anesthesia Location Provider Complicate 08/27/22 39 live - full term vaginal delivery 7 lb 3 oz Male none [facility] none Questionnaire History History : 2 Visit BRAEDEN Calculator Estimated Delivery Date Method Current WG Current Estimate 08/11/23 LMP (Certain) 32w 3d Other Estimates 08/11/23 Ultrasound #1 32w 3d Expected Delivery Route/Plan Specific Issues/Plans 27Yr. old G 2 P 1 EDC: 08/11/2023 Blood type: A pos Problem List: 1. Closely spaced pregnancies delivered August 2022 2. obesity 3. Anemia-does not tolerate iron. Advised iron rich foods on 02/04/2023./Hematology Oncology referral placed by Inez on 05/19/2023. Testing: Panorama/and or First Tri screen: risk NT scan: Booked 02/09/2023 AFP: FAS: Normal Glucose: early 75 28 wk glucose: 83 CBC 1st Tri: 11.1 28 wk. CBC: 9.9/31.0/239 GBS: 06/02/23 MFN scan to check fluid-- fluid within normal limits at 30 weeks. 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 Transportation: own Labor, and Concerns: Labor support: Plan: Infant Feeding Plans: breast feeding control: OB Visit Log Initial Weight: 220 lb Date -?-?-?-?-?-?-?-?-?-?-?-?- EGA Weight Gest Week Fundal Ht Present FHR move Efface % Edema BP PrePreg We Weight GTT -?-?-?-?-?-?-?-?-?-?-?-?- Glucose LV Protein Blood Type 01/22/23 -?-?-?-?-?-?-?--?-?-?-?-?- 11w 2d 224 lb (+4 lb) 224 lb -?-?-?-?-?-?-?-?-?-?-?-?- 02/04/23 -?-?-?-?-?-?-?-?-?-?-?-?- 13w 1d 223 lb (+3 lb) 160 116/72 223 lb -?-?-?-?-?-?-?-?-?-?-?-?- 03/10/23 -?-?-?-?-?-?-?-?-?-?-?-?- 18w 0d 223 lb (+3 lb) 150 110/70 223 lb -?-?-?-?-?-?-?-?-?-?-?-?- 04/07/23 -?-?-?-?-?-?-?-?-?-?-?-?- 22w 0d 229 lb (+9 lb) 24 150 100/60 229 lb -?-?-?-?-?-?-?-?-?-?-?-?- 05/06/23 -?-?-?-?-?-?-?-?-?-?-?--?- 26w 1d 232 lb (+12 lb) 26 150 active 104/60 232 lb -?-?-?-?-?-?-?-?-?-?-?-?- 05/19/23 -?-?-?-?-?-?-?-?-?-?-?-?- 28w 0d 233 lb (+13 lb) 28 140 active 100/60 233 lb -?-?-?-?-?-?-?-?-?-?-?-?- 06/05/23 -?-?-?-?-?-?-?-?-?-?-?-?- 30w 3d 232 lb (+12 lb) 32 140 active 110/68 232 lb -?-?-?-?-?-?-?-?-?-?-?-?- 06/19/23 -?-?-?-?-?-?-?-?-?-?-?-?- 32w 3d 240 lb (+20 lb) 36 140 active 124/60 240 lb -?-?-?-?-?-?-?-?-?-?-?-?- Notes Visit Date: 06/19/23 Last Updated by: Marci Reis CNM Patient is here at 32 weeks and 3 days for her visit done at the [facility]. She was not able to tolerate iron so has been seeing Hematology and getting iron transfusions she is gotten 2 so far she has not sure she has feeling a difference yet. Baby is active. She had an ultrasound at [facility] on June 02 to check for fluid as there was a history of oligohydramnios with her previous . Fluid was deemed to be within normal limits. There is jumping fundal height today but it feels to be all adipose. Reviewed her plans for control. This was closely spaced after the other 1 in her other baby is 9-month-old. She is completely undecided about control and has not thought about it yet. We reviewed every method commonly used including condoms pills patches rings Depo-Provera Nexplanon and IUDs with and without hormones. She is disinclined to choose an IUD because her cousin has cramping with it however she had reasons why she would not be able to use every other method as well including remembering to take pills wanting to breastfeed and concern about weight gain with various methods. She tends to get very crampy periods. I recommend she consider and do more research about the Mirena IU S as it may be the more reliable method for her and she has ruled out in her mind every other method as well. To continue the discussions. Di scussed that sometimes the Mirena maybe offered at [facility] after delivery but otherwise we would want to place it after does complete involution of the uterus after 8 weeks RTC 2 weeks. May be seen at either office, vaccinations would occur at the [facility] office. Visit Date: 06/05/23 Last Updated by: Inez Melgar CNM Note author: Inez Melgar CNM. 30.3wk. RUPESH. Taking PNV, Doing well with no concerns. Good appetite, stays well hydrated. Denies any LOF, VB, abd. pain or urinary symptoms. Good FM. Has an iron infusion next week. She reports heartburn, taking Tums not completely effective though. Reviewed: PTL s/s-LOF/Ctx's/VB, when to seek emergent care. discomforts, self help measures. FMC and when to call for further evaluation. Encouraged a healthy well balanced diet, regular walking/exercise in . Hydrate well, 8-10 glasses of water daily. RTO 2wks. Visit Date: 05/19/23 Last Updated by: Inez Melgar CNM Note author: Inez Melgar CNM. 28wk. RUPESH. Taking PNV, Doing well with concerns: had a few episodes of feeling lightheaded, a wave of heat and felt a numbing sensation, while sitting and standing. Denies any chest pain, shortness breath, dizziness, heart palpitations. Denies any dehydration. History of anemia has not started her iron yet due to concerns of GI effects from her last . Good appetite. Denies any LOF, VB, abd. pain or urinary symptoms. Good FM. History of oligohydramnios with her last . Twenty-eight week labs reviewed. BS-83, Hgb. 9.8 Reviewed: Anemia, oral iron verses iron infusion. Ref: Heme/Onc for iron infusion. PTL s/s-LOF/Ctx's/VB, when to seek emergent care. discomforts, self help measures. FMC and when to call for further evaluation. Encouraged a healthy well balanced diet, regular walking/exercise in . Hydrate well, 8-10 glasses of water daily. Ultrasound for fluid check. RTO 2wks. Visit Date: 05/06/23 Last Updated by: Inez Melgar CNM Note author: Inez Melgar CNM. 26.1wk. RUPESH. Taking PNV, Doing well with no concerns. Good appetite w/iron enriched foods, stays well hydrated. Denies any LOF, VB, abd. pain or urinary symptoms. Good FM. She reports small amt. of blood from anus with wiping, had the same during her last . Denies any constipation, reports more frequency of soft/watery stools. Denies hemorrhoids, she defers exam until her next visit. Reviewed: PTL s/s-LOF/Ctx's/VB, rectal bleeding increase, when to seek emergent care. Referral to GI sent. discomforts, self help measures. FMC and when to call for further evaluation. Encouraged a healthy well balanced diet, regular walking/exercise in . Hydrate well, 8-10 glasses of water daily. Glucose testing in the next 2 wks Note for work per pt. request of lifting limits provided. RTO 2wks. Visit Date: 04/07/23 Last Updated by: Inez Melgar CNM Note author: Inez Melgar CNM. 22wk. RUPESH. Taking PNV, Doing well with no concerns. Good appetite, stays well hydrated. Denies any LOF, VB, abd. pain, or urinary symptoms. She completed the FAS sent reports she is having a baby girl. Counseled regard regarding flu vaccine patient declined. Reviewed: PTL s/s-LOF/Ctx's/VB, when to seek emergent care. discomforts, self help measures. FM and when to call the office for further eval. Encouraged a healthy well balanced diet, regular walking/exercise in . Hydrate well, 8-10 glasses of water daily. RTO 4wks. Plan glucose between 26 and 28 week. Visit Date: 03/10/23 Last Updated by: Yoel Bhat MD Presenting for visit with no complaints, no cramping, leakage of fluid or bleeding. The the patient is starting to feel movements. On vitamin A/P: 18 week of gestation Discussed with the patient options for chromosomal abnormality screening versus counseling. Options discussed with the patient's include but not limited to: Cell free DNA, 1st trimester combined screening, quad screen, integrated, serum integrated, sequential stepwise, contingent screening, nuchal translucency alone , anomaly scan, in addition to invasive diagnostic test. The approximate gestational age range for screening, detection rate for chromosomal abnormalities, screen positive rate, advantages, disadvantages and limitations associated with each test/approach were discussed with the patient . The availability of invasive diagnostic tests were reviewed with the patient and their sensitivity in addition to the associated risk of miscarriage were discussed with the patient. The differences between screening tests and diagnost ic tests were explained to the patient . After our discussion, the patient declined invasive genetic testing and opted to stay with the First trimester screening that is based on cell-free DNA or non-invasive testing (NIPT) which was already done and negative. Discussed with the patient the results of her first-trimester screen being low risk for trisomy 21, 13 and 18, explained to the patient that this test does not screen for open neural tube defects and recommendation is to measure maternal serum alpha fetoprotein in the 2nd trimester optimally between 16-18 week in addition to a anomaly screen to screen for neural tube defect. Quadruple screen ordered and anomalies scan is in the process of being scheduled based Instructions given the patient to call in case of cramping and or bleeding, follow-up in 4 weeks Visit Date: 02/04/23 Last Updated by: Inez Melgar CNM OB Note author: Inez Melgar CNM/Jada Chun medical records auditor 13.1 wk. PNV. Good FM, no LOF or VB. Reports taking PNV gummies without iron. Has concerns of '' bubbles '' on her back/flank that come and go, not present today. Discussed: Advised to do Glucose testing on Thursday her day off, same day as the NT is booked. Monitor rash and if become more bothersome contact office: referral to [facility] or see PCP when rash is present. BV testing and GC/CT panel done today. Await results and treat accordingly. Advised to eat healthy and stay hydrated. Increase iron enriched foods. Reviewed when to call for any VB. Discussed to call the service here for any emergencies/deliveries to be directed to [facility]. RTO 4wk. 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 She is a pleasant 27 year old with LMP 11/04/22 and BRAEDEN 08/11/23 which correlates exactly with US on 01/16/23 at 10w3d, BRAEDEN 08/11/23 and GA today of 11w3d today. Short interval was unplanned but pt wishes to continue. Pt's son will be ~1 year old when baby #2 is born. FOB is the same for both pregnancies. He is supportive. BMI is 38.8 and early glucose has been added to labs. Pt is scheduled for OB PE 02/04/23. Jodi has some nausea but she is managing well. She is on PNV and has been prescribed Vit B6 for nausea but has not started the medication. She is also taking sucralfate and omeprazole for heartburn. She has h/o anxiety and depression, does not have a counselor but reports her boyfriend and family are very supportive. Pt does report she has a half-brother who has a trach and G- tube, nonambulatory and nonverbal but she is not sure of the reason. She will try and find out the problem. Pt also mentioned that she has had diarrhea for a few weeks. We discussed adding fiber to her diet and was advised to discuss this further at her OB PE. Pt denies abd pain or blood per rectum. Pt was given the folder. We discussed danger signs, MD availability 24/7 and h ow to reach the MD after hours. She is aware that she will deliver at [facility] and have [place] there as well. Pt was also advised of need to transfer to a [facility] practice if her becomes high-risk. Anticipate another vaginal delivery. No complications with her first or delivery. Pt advised that labs, including early glucose have been ordered and she will have them done orion. Advised to decrease sweets and carbs night before and morning of testing. Will schedule NT US and 1st trimester screening at [facility]. Pt verbalizes understanding and agrees with plan. All of her questions were answered to the best of my ability. Coding Level of Care Code Pradeep Diagnoses Anemia affecting in second trimester O99.012 Supervision of normal Z34.90 control counseling Z30.09 Assessment & Plan Assessment & Plan (1) Anemia affecting in second trimester: Code(s): O99.012 - Anemia complicating , second trimester Category: Medical (2) Supervision of normal : Code(s): Z34.90 - Encounter for supervision of normal , unspecified, unspecified trimester Category: Medical (3) control counseling: Code(s): Z30.09 - Encounter for other general counseling and advice on contraception Category: Medical
== END 2023-06-19 15:50 | disposition home or self-care (01) ==
LOC: HO.HWSM 15:06
PROVIDERS: Visit Provider Advanced Practice Midwife
DX: O99.012 Anemia complicating pregnancy, second trimester (principal); Z34.90 Encounter for supervision of normal pregnancy, unspecified, unspecified trimester; Z30.09 Encounter for other general counseling and advice on contraception
CPT/HCPCS: 25942

== ENCOUNTER → 2023-06-19 15:06 | Outpatient (BNVA) | payer BC, MEDICAID, SELFPAY | PROVIDERS: Visit Provider Advanced Practice Midwife | DX: O99.213 Obesity complicating pregnancy, third trimester (principal); O99.013 Anemia complicating pregnancy, third trimester; D64.9 Anemia, unspecified; Z3A.32 32 weeks gestation of pregnancy | CPT/HCPCS: 99212 ==

== ENCOUNTER 2023-07-01 15:15 | Outpatient (AMB) | payer BC, MEDICAID, SELFPAY ==
[2023-07-01 15:17] VITALS: BP 104/60; BMI 40.7
--- NOTE | 2023-07-01 15:17 | MHC.OFFVISPN ---
Intake Vital Signs 07/01/23 15:17 Height 5 ft 4 in Weight 237 lb BMI 40.7 BP 104/60 Intake Visit Reasons: RUPESH Allergies amoxicillin [Amoxicillin] Allergy (Unknown, Verified 07/01/23 15:17) UNKNOWN Patient : Yes PFSH Medical History History of oligohydramnios Nausea Missed menses Positive test Encounter for supervision of normal in third trimester Screening for depression Fatigue Cervical cancer screening Well woman exam with routine gynecological exam Early stage of Genetic screening Adult BMI > 30 History of MRSA infection Depression with anxiety Migraine Family History Brother Tracheostomy present Feeding by G-tube Social History Household Members: Children Both parents involved: Yes Caregiver staying overnight: No Housing: House Are you a primary patient care provider to a significant other at home: No Do you presently have visiting nurse or other home services: No 75 years or older and lives alone: No Alcohol intake: never Patient Tobacco Use Status: Never used Tobacco Special cuong needs: No Agree to transfusion: Yes service: No Current occupational status: employed 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 Date GA/Weeks Outcome Route Wt Inf Gender Labor Leena Anesthesia Location Provider Complicate 08/27/22 39 live - full term vaginal delivery 7 lb 3 oz Male none [facility] none Visit BRAEDEN Calculator Estimated Delivery Date Method Current WG Current Estimate 08/11/23 LMP (Certain) 34w 1d Other Estimates 08/11/23 Ultrasound #1 34w 1d Expected Delivery Route/Plan Specific Issues/Plans 27Yr. old G 2 P 1 EDC: 08/11/2023 Blood type: A pos Problem List: 1. Closely spaced pregnancies delivered August 2022 2. obesity 3. Anemia-does not tolerate iron. Advised iron rich foods on 02/04/2023./Hematology Oncology referral placed by Inez on 05/19/2023. Testing: Panorama/and or First Tri screen: risk NT scan: Booked 02/09/2023 AFP: FAS: Normal Glucose: early 75 28 wk glucose: 83 CBC 1st Tri: 11.1 28 wk. CBC: 9.9/31.0/239 GBS: 06/02/23 MFN scan to check fluid-- fluid within normal limits at 30 weeks. Vaccinations: Flu: informed, declined Covid: Tdap: given 07/01/23. 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 Transportation: own Labor, and Concerns: Labor support: Plan: Infant Feeding Plans: breast feeding control: OB Visit Log Initial Weight: 220 lb Date <del>?</del> EGA Weight Gest Week Fundal Ht Present FHR move Efface % Edema BP PrePreg We Weight GTT <del>?</del> Glucose LV Protein Blood Type 01/22/23 <del>?</del> 11w 2d 224 lb (+4 lb) 224 lb <del>?</del> 02/04/23 <del>?</del> 13w 1d 223 lb (+3 lb) 160 116/72 223 lb <del>?</del> 03/10/23 <del>?</del> 18w 0d 223 lb (+3 lb) 150 110/70 223 lb <del>?</del> 04/07/23 <del>?</del> 22w 0d 229 lb (+9 lb) 24 150 100/60 229 lb <del>?</del> 05/06/23 <del>?</del> 26w 1d 232 lb (+12 lb) 26 150 active 104/60 232 lb <del>?</del> 05/19/23 <del>?</del> 28w 0d 233 lb (+13 lb) 28 140 active 100/60 233 lb <del>?</del> 06/05/23 <del>?</del> 30w 3d 232 lb (+12 lb) 32 140 active 110/68 232 lb <del>?</del> 06/19/23 <del>?</del> 32w 3d 240 lb (+20 lb) 36 140 active 124/60 240 lb <del>?</del> 07/01/23 <del>?</del> 34w 1d 237 lb (+17 lb) 36 150 active 104/60 237 lb <del>?</del> Notes Visit Date: 07/01/23 Last Updated by: Inez Melgar CNM Note author: Inez Melgar CNM. 34.1wk. RUPESH. Taking PNV, Doing well with no concerns. Good appetite, stays well hydrated. Denies any LOF, VB, abd. pain or urinary symptoms. Good FM. Has not started the Pepcid. Reports right ear pain and soreness to her throat, Claritin not helping, does not have a PCP. 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 Reviewed: PTL s/s-LOF/Ctx's/VB, when to seek emergent care. discomforts, self help measures. See Urgent care for ear pain. Start Pepcid. Tdap today. Note for work per request given. Unsure of control plans. FMC and when to call for further evaluation. Encouraged a healthy well balanced diet, regular walking/exercise in . Hydrate well, 8-10 glasses of water daily. Informed GBS at n/v. RTO 2wks. Visit Date: 06/19/23 Last Updated by: Marci Reis CNM Patient is here at 32 weeks and 3 days for her visit done at the [facility]. She was not able to tolerate iron so has been seeing Hematology and getting iron transfusions she is gotten 2 so far she has not sure she has feeling a difference yet. Baby is active. She had an ultrasound at [facility] on June 02 to check for fluid as there was a history of oligohydramnios with her previous . Fluid was deemed to be within normal limits. There is jumping fundal height today but it feels to be all adipose. Reviewed her plans for control. This was closely spaced after the other 1 in her other baby is 9-month-old. She is completely undecided about control and has not thought about it yet. We reviewed every method commonly used including condoms pills patches rings Depo-Provera Nexplanon and IUDs with and without hormones. She is disinclined to choose an IUD because her cousin has cramping with it however she had reasons why she would not be able to use every other method as well including remembering to take pills wanting to breastfeed and concern about weight gain with various methods. She tends to get very crampy periods. I recommend she consider and do more research about the Mirena IU S as it may be the more reliable method for her and she has ruled out in her mind every other method as well. To continue the discussions. Discussed that sometimes the Mirena maybe offered at [facility] after delivery but otherwise we would want to place it after does complete involution of the uterus after 8 weeks RTC 2 weeks. May be seen at either office, vaccinations would occur at the [facility] office. Visit Date: 06/05/23 Last Updated by: Inez Melgar CNM Note author: Inez Melgar CNM. 30.3wk. RUPESH. Taking PNV, Doing well with no concerns. Good appetite, stays well hydrated. Denies any LOF, VB, abd. pain or urinary symptoms. Good FM. Has an iron infusion next week. She reports heartburn, taking Tums not completely effective though. Reviewed: PTL s/s-LOF/Ctx's/VB, when to seek emergent care. discomforts, self help measures. FMC and when to call for further evaluation. Encouraged a healthy well balanced diet, regular walking/exercise in . Hydrate well, 8-10 glasses of water daily. RTO 2wks. Visit Date: 05/19/23 Last Updated by: Inez Melgar CNM Note author: Inez Melgar CNM. 28wk. RUPESH. Taking PNV, Doing well with concerns: had a few episodes of feeling lightheaded, a wave of heat and felt a numbing sensation, while sitting and standing. Denies any chest pain, shortness breath, dizziness, heart palpitations. Denies any dehydration. History of anemia has not started her iron yet due to concerns of GI effects from her last . Good appetite. Denies any LOF, VB, abd. pain or urinary symptoms. Good FM. History of oligohydramnios with her last . Twenty-eight week labs reviewed. BS-83, Hgb. 9.8 Reviewed: Anemia, oral iron verses iron infusion. Ref: Heme/Onc for iron infusion. PTL s/s-LOF/Ctx's/VB, when to seek emergent care. discomforts, self help measures. FMC and when to call for further evaluation. Encouraged a healthy well balanced diet, regular walking/exercise in . Hydrate well, 8-10 glasses of water daily. Ultrasound for fluid check. RTO 2wks. Visit Date: 05/06/23 Last Updated by: Inez Melgar CNM Note author: Inez Melgar CNM. 26.1wk. RUPESH. Taking PNV, Doing well with no concerns. Good appetite w/iron enriched foods, stays well hydrated. Denies any LOF, VB, abd. pain or urinary symptoms. Good FM. She reports small amt. of blood from anus with wiping, had the same during her last . Denies any constipation, reports more frequency of soft/watery stools. Denies hemorrhoids, she defers exam until her next visit. Reviewed: PTL s/s-LOF/Ctx's/VB, rectal bleeding increase, when to seek emergent care. Referral to GI sent. discomforts, self help measures. FMC and when to call for further evaluation. Encouraged a healthy well balanced diet, regular walking/exercise in . Hydrate well, 8-10 glasses of water daily. Glucose testing in the next 2 wks Note for work per pt. request of lifting limits provided. RTO 2wks. Visit Date: 04/07/23 Last Updated by: Inez Melgar CNM Note author: Inez Melgar CNM. 22wk. RUPESH. Taking PNV, Doing well with no concerns. Good appetite, stays well hydrated. Denies any LOF, VB, abd. pain, or urinary symptoms. She completed the FAS sent reports she is having a baby girl. Counseled regard regarding flu vaccine patient declined. Reviewed: PTL s/s-LOF/Ctx's/VB, when to seek emergent care. discomforts, self help measures. FM and when to call the office for further eval. Encouraged a healthy well balanced diet, regular walking/exercise in . Hydrate well, 8-10 glasses of water daily. RTO 4wks. Plan glucose between 26 and 28 week. Visit Date: 03/10/23 Last Updated by: Yoel Bhat MD Presenting for visit with no complaints, no cramping, leakage of fluid or bleeding. The the patient is starting to feel movements. On vitamin A/P: 18 week of gestation Discussed with the patient options for chromosomal abnormality screening versus counseling. Options discussed with the patient's include but not limited to: Cell free DNA, 1st trimester combined screening, quad screen, integrated, serum integrated, sequential stepwise, contingent screening, nuchal translucency alone , anomaly scan, in addition to invasive diagnostic test. The approximate gestational age range for screening, detection rate for chromosomal abnormalities, screen positive rate, advantages, disadvantages and limitations associated with each test/approach were discussed with the patient . The availability of invasive diagnostic tests were reviewed with the patient and their sensitivity in addition to the associated risk of miscarriage were discussed with the patient. The differences between screening tests and diagnostic tests were explained to the patient . After our discussion, the patient declined invasive genetic testing and opted to stay with the First trimester screening that is based on cell-free DNA or non-invasive testing (NIPT) which was already done and negative. Discussed with the patient the results of her first-trimester screen being low risk for trisomy 21, 13 and 18, explained to the patient that this test does not screen for open neural tube defects and recommendation is to measure maternal serum alpha fetoprotein in the 2nd trimester optimally between 16-18 week in addition to a anomaly screen to screen for neural tube defect. Quadruple screen ordered and anomalies scan is in the process of being scheduled based Instructions given the patient to call in case of cramping and or bleeding, follow-up in 4 weeks Visit Date: 02/04/23 Last Updated by: Inez Melgar CNM OB Note author: Inez Melgar CNM/Jada Chun biomedical engineering professor 13.1 wk. PNV. Good FM, no LOF or VB. Reports taking PNV gummies without iron. Has concerns of '' bubbles '' on her back/flank that come and go, not present today. Discussed: Advised to do Glucose testing on Thursday her day off, same day as the NT is booked. Monitor rash and if become more bothersome contact office: referral to [facility] or see PCP when rash is present. BV testing and GC/CT panel done today. Await results and treat accordingly. Advised to eat healthy and stay hydrated. Increase iron enriched foods. Reviewed when to call for any VB. Discussed to call the service here for any emergencies/deliveries to be directed to [facility]. RTO 4wk. 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 She is a pleasant 27 year old with LMP 11/04/22 and BRAEDEN 08/11/23 which correlates exactly with US on 01/16/23 at 10w3d, BRAEDEN 08/11/23 and GA today of 11w3d today. Short interval was unplanned but pt wishes to continue. Pt's son will be ~1 year old when baby #2 is born. FOB is the same for both pregnancies. He is supportive. BMI is 38.8 and early glucose has been added to labs. Pt is scheduled for OB PE 02/04/23. Jodi has some nausea but she is managing well. She is on PNV and has been prescribed Vit B6 for nausea but has not started the medication. She is also taking sucralfate and omeprazole for heartburn. She has h/o anxiety and depression, does not have a counselor but reports her boyfriend and family are very supportive. Pt does report she has a half-brother who has a trach and G-tube, nonambulatory and nonverbal but she is not sure of the reason. She will try and find out the problem. Pt also mentioned that she has had diarrhea for a few weeks. We discussed adding fiber to her diet and was advised to discuss this further at her OB PE. Pt denies abd pain or blood per rectum. Pt was given the folder. We discussed danger signs, MD availability 24/11 and how to reach the MD after hours. She is aware that she will deliver at [facility] and have ultrasounds there as well. Pt was also advised of need to transfer to a [facility] practice if her becomes high-risk. Anticipate another vaginal delivery. No complications with her first or delivery. Pt advised that labs, including early glucose have been ordered and she will have them done orion. Advised to decrease sweets and carbs night before and morning of testing. Will schedule NT US and 1st trimester screening at [facility]. Pt verbalizes understanding and agrees with plan. All of her questions were answered to the best of my ability. Results AMB Urinalysis, Automated UA Leukoctes 0.5 Venkat/uL Last Edit by Rhoda Washburn Magda on 07/01/23 15:25 UA Nitrite Negative Last Edit by Rhoda Washburn Magda on 07/01/23 15:25 UA Urobilinogen 0 mg/dL Last Edit by Rhoda Washburn COUNTS INCLUDE 234 BEDS AT THE [facility] on 07/01/23 15:25 UA Protein 0.5 mg/dL Last Edit by Rhoda Washburn Magda on 07/01/23 15:25 UA pH 6.5 Last Edit by Rhoda Washburn COUNTS INCLUDE 234 BEDS AT THE [facility] on 07/01/23 15:25 UA Blood 0 Av/uL Last Edit by Rhoda Washburn COUNTS INCLUDE 234 BEDS AT THE [facility] on 07/01/23 15:25 UA Specific [place] 1.015 Last Edit by KASSIDY Gutiérrez on 07/01/23 15:25 UA Ketone Negative Last Edit by KASSIDY Gutiérrez on 07/01/23 15:25 UA Bilirubin 0 mg/dL Last Edit by Rhoda Washburn COUNTS INCLUDE 234 BEDS AT THE [facility] on 07/01/23 15:25 UA Glucose 0 mg/dL Last Edit by KASSIDY Gutiérrez on 07/01/23 15:25 Immunizations Boostrix Tdap 2.5 Lf unit-8 mcg-5 Lf/0.5 mL intramuscular syringe Performing Provider: Inez Melgar CNM Performing Location[place] [facility] Administered by: Shivani Sullivan on 07/01/23 16:11 Dose Route Admin Location Dispensed Lot Number Expiration Date [facility] Fisher Trammel Net 0.5 mL IM Left Deltoid 0.5 mL [id number] 01/27/25 [id number] [employer] VIS Given Date VIS Provided VIS Publication Date 07/01/23 Single Vaccine 20 Eligibility Eligibility Date Funding Source Not [facility] Eligible 07/01/23 Private Results Reviewed Results Reviewed: Laboratory Last Values Urine pH (Auto) 6.5 07/01/23 15:24 Specific [place] (Auto) 1.015 07/01/23 15:24 Urine Protein (Auto) 0.5 mg/dL 07/01/23 15:24 Glucose (UA)(Auto) 0 mg/dL 07/01/23 15:24 Urine Ketones (Auto) Negative 07/01/23 15:24 Urine Blood (Auto) 0 Av/uL 07/01/23 15:24 Urine Nitrite (Auto) Negative 07/01/23 15:24 Urine Bilirubin (Auto) 0 mg/dL 07/01/23 15:24 Urine Urobilinogen (Auto) 0 mg/dL 07/01/23 15:24 Leukocyte Esterase (Auto) 0.5 Venkat/uL 07/01/23 15:24 Coding Level of Care Code [place] Assessment & Plan Assessment & Plan Orders: Orders TDaP Immunization Today Z23 - Encounter for immunization, Z34.90 - Encounter for supervision of normal , unspecified, unspecified trimester AMB Urinalysis Automated Today Z34.90 - Encounter for supervision of normal , unspecified, unspecified trimester
== END 2023-07-01 16:11 | disposition home or self-care (01) ==
LOC: HO.HWS 15:15
PROVIDERS: Visit Provider Advanced Practice Midwife
DX: Z23 Encounter for immunization (principal); Z34.90 Encounter for supervision of normal pregnancy, unspecified, unspecified trimester
CPT/HCPCS: 25942

== ENCOUNTER → 2023-07-01 15:15 | Outpatient (BNVA) | payer BC, MEDICAID, SELFPAY | PROVIDERS: Visit Provider Advanced Practice Midwife | DX: O99.213 Obesity complicating pregnancy, third trimester (principal); O99.013 Anemia complicating pregnancy, third trimester; D64.9 Anemia, unspecified; Z3A.34 34 weeks gestation of pregnancy; Z23 Encounter for immunization | CPT/HCPCS: 81003; 90715; 96360; 99212 ==

== ENCOUNTER 2023-07-03 14:55 | Outpatient (REF) | payer BC, MEDICAID, SELFPAY ==
[2023-07-03 15:09] VITALS: BP 125/72; PULSE 83; RESP 18; TEMP 36.6
[2023-07-03] MEDS: Iron Sucrose Complex 200 MG in 0.9 % Sodium Chloride 100 ML 440 MG IV (15:20)
== END 2023-07-03 14:56 | disposition home or self-care (01) ==
LOC: HO.MDS 14:55
PROVIDERS: Visit Provider Internal Medicine Medical Oncology
DX: D50.9 Iron deficiency anemia, unspecified (principal)
CPT/HCPCS: 96365; J1756

== ENCOUNTER 2023-07-17 10:01 | Outpatient (AMB) | payer BC, MEDICAID, SELFPAY ==
[2023-07-17 10:02] VITALS: BP 118/66; BMI 41.2
--- NOTE | 2023-07-17 10:02 | A.OFFVISPN_ITS ---
Intake Vital Signs 07/17/23 10:02 Height 5 ft 4 in Weight 240 lb BMI 41.2 BP 118/66 Intake Visit Reasons: RUPESH Junior Buyer Required: No Information Interpreted: non-clinical & clinical Accompanied by: Self / Same As Patient Allergies amoxicillin [Amoxicillin] Allergy (Unknown, Verified 07/17/23 10:08) UNKNOWN Patient : Yes PFSH Medical History History of oligohydramnios Nausea Missed menses Positive test Encounter for supervision of normal in third trimester Screening for depression Fatigue Cervical cancer screening Well woman exam with routine gynecological exam Early stage of Genetic screening Adult BMI > 30 History of MRSA infection Depression with anxiety Migraine Family History Brother Tracheostomy present Feeding by G-tube Social History Household Members: Children Both parents involved: Yes Caregiver staying overnight: No Housing: House Are you a primary wound care nurse to a significant other at home: No Do you presently have visiting nurse or other home services: No 75 years or older and lives alone: No Alcohol intake: never Patient Tobacco Use Status: Never used Tobacco Special cuong needs: No Agree to transfusion: Yes service: No Current occupational status: employed 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 Date GA/Weeks Outcome Route Wt Inf Gender Labor Leena Anesthesia Location Provider Complicate 08/27/22 39 live - full term vaginal delivery 7 lb 3 oz Male none [facility] none Visit BRAEDEN Calculator Estimated Delivery Date Method Current WG Current Estimate 08/11/23 LMP (Certain) 36w 3d Other Estimates 08/11/23 Ultrasound #1 36w 3d Expected Delivery Route/Plan Specific Issues/Plans 27 yr. old G 2 P 1 EDC: 08/11/2023 Blood type: A pos Problem List: 1. Closely spaced pregnancies delivered August 2022 2. obesity 3. Anemia-does not tolerate iron. Advised iron rich foods on 02/04/2023./Hematology Oncology referral placed by Inez on 05/19/2023. Testing: Panorama/and or First Tri screen: risk NT scan: Booked 02/09/2023 AFP: FAS: Normal Glucose: early 75 28 wk glucose: 83 CBC 1st Tri: 11.1 28 wk. CBC: 9.9/31.0/239 GBS: done 07/17/23... 06/02/23 MFN scan to check fluid-- fluid within normal limits at 30 weeks. Vaccinations: Flu: informed, declined Covid: Tdap: given 07/01/23. 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 Transportation: own Labor, and Concerns: Labor support: Plan: Infant Feeding Plans: breast feeding control: OB Visit Log Initial Weight: 220 lb Date -?-?-?-?-?-?-?-?-?-?-?-?- EGA Weight Gest Week Fundal Ht Present FHR move Efface % Edema BP PrePreg We Weight GTT -?-?-?-?-?--?-?-?-?-?-?-?- Glucose LV Protein Blood Type 01/22/23 -?-?-?-?-?-?-?-?-?-?-?-?- 11w 2d 224 lb (+4 lb) 224 lb -?-?-?-?-?-?-?-?-?-?-?-?- 02/04/23 -?-?-?-?-?-?-?-?-?-?-?-?- 13w 1d 223 lb (+3 lb) 160 116/72 223 lb -?-?-?-?-?-?-?-?-?-?-?-?- 03/10/23 -?-?-?-?-?-?-?-?-?-?-?-?- 18w 0d 223 lb (+3 lb) 150 110/70 223 lb -?-?-?-?-?-?-?-?-?-?-?-?- 04/07/23 -?-?-?-?-?-?-?-?-?-?-?-?- 22w 0d 229 lb (+9 lb) 24 150 100/60 229 lb -?-?-?-?-?-?-?-?-?-?-?-?- 05/06/23 -?-?-?-?-?-?-?-?-?-?-?-?- 26w 1d 232 lb (+12 lb) 26 150 active 104/60 232 lb -?-?-?-?-?-?-?-?-?-?-?-?- 05/19/23 -?-?-?-?-?-?-?-?-?-?-?-?- 28w 0d 233 lb (+13 lb) 28 140 active 100/60 233 lb -?-?-?-?-?-?-?-?-?-?-?-?- 06/05/23 -?-?-?-?-?-?-?-?-?-?-?-?- 30w 3d 232 lb (+12 lb) 32 140 active 110/68 232 lb -?-?-?-?-?-?-?-?-?-?-?-?- 06/19/23 -?-?-?-?-?-?-?-?-?-?-?-?- 32w 3d 240 lb (+20 lb) 36 140 active 124/60 240 lb -?-?-?-?-?-?-?-?-?-?-?-?- 07/01/23 -?-?-?-?-?-?-?-?-?--?-?-?- 34w 1d 237 lb (+17 lb) 36 150 active 104/60 237 lb -?-?-?-?-?-?-?-?-?-?-?-?- 07/17/23 -?-?-?-?-?-?-?-?-?-?-?-?- 36w 3d 240 lb (+20 lb) 38 140 active 118/66 240 lb -?-?-?-?-?-?-?-?-?-?-?-?- Notes Visit Date: 07/17/23 Last Updated by: Inez Melgar CNM Note author: Inez Meglar CNM. 36.3wk. RUPESH. Taking PNV, Doing well with no concerns. Good appetite, stays well hydrated. Denies any LOF, VB, abd. pain or urinary symptoms. Good FM. GBS, GC chlamydia obtained. Note revised for work today for additional date documentation. Reviewed: PTL s/s-LOF/Ctx's/VB, when to seek emergent care. discomforts, self help measures. FMC and when to call for further evaluation. Encouraged a healthy well balanced diet, regular walking/exercise in pr egnancy. Hydrate well, 8-10 glasses of water daily. RTO 1wks. Visit Date: 07/01/23 Last Updated by: Inez Melgar CNM Note author: Inez Melgar CNM. 34.1wk. RUPESH. Taking PNV, Doing well with no concerns. Good appetite, stays well hydrated. Denies any LOF, VB, abd. pain or urinary symptoms. Good FM. Has not started the Pepcid. Reports right ear pain and soreness to her throat, Claritin not helping, does not have a PCP. 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 Reviewed: PTL s/s-LOF/Ctx's/VB, when to seek emergent care. discomforts, self help measures. See Urgent care for ear pain. Start Pepcid. Tdap today. Note for work per request given. Unsure of control plans. FMC and when to call for further evaluation. Encouraged a healthy well balanced diet, regular walking/exercise in . Hydrate well, 8-10 glasses of water daily. Informed GBS at n/v. RTO 2wks. Visit Date: 06/19/23 Last Updated by: Marci Reis CNM Patient is here at 32 weeks and 3 days for her visit done at the [facility]. She was not able to tolerate iron so has been seeing Hemat ology and getting iron transfusions she is gotten 2 so far she has not sure she has feeling a difference yet. Baby is active. She had an ultrasound at [facility] on June 02 to check for fluid as there was a history of oligohydramnios with her previous . Fluid was deemed to be within normal limits. There is jumping fundal height today but it feels to be all adipose. Reviewed her plans for control. This was closely spaced after the other 1 in her other baby is 9-month-old. She is completely undecided about control and has not thought about it yet. We reviewed every method commonly used including condoms pills patches rings Depo-Provera Nexplanon and IUDs with and without hormones. She is disinclined to choose an IUD because her cousin has cramping with it however she had reasons why she would not be able to use every other method as well including remembering to take pills wanting to breastfeed and concern about weight gain with various methods. She tends to get very crampy periods. I recommend she consider and do more research about the Mirena IU S as it may be the more reliable method for her and she has ruled out in her mind every other method as well. To continue the discussions. Discussed that sometimes the Mirena maybe offered at [facility] after delivery but otherwise we would want to place it after does complete involution of the uterus after 8 weeks RTC 2 weeks. May be seen at either office, vaccinations would occur at the [facility] office. Visit Date: 06/05/23 Last Updated by: Inez Melgar CNM Note author: Inez Melgar CNM. 30.3wk. RUPESH. Taking PNV, Doing well with no concerns. Good appetite, stays well hydrated. Denies any LOF, VB, abd. pain or urinary symptoms. Good FM. Has an iron infusion next week. She reports heartburn, taking Tums not completely effective though. Reviewed: PTL s/s-LOF/Ctx's/VB, when to seek emergent care. discomforts, self help measures. FMC and when to call for further evaluation. Encouraged a healthy well balanced diet, regular walking/exercise in . Hydrate well, 8-10 glasses of water daily. RTO 2wks. Visit Date: 05/19/23 Last Updated by: Inez Melgar CNM Note author: Inez Melgar CNM. 28wk. RUPESH. Taking PNV, Doing well with concerns: had a few episodes of feeling lightheaded, a wave of heat and felt a numbing sensation, while sitting and standing. Denies any chest pain, shortness breath, dizziness, heart palpitations. Denies any dehydration. History of anemia has not started her iron yet due to concerns of GI effects from her last . Good appetite. Denies any LOF, VB, abd. pain or urinary symptoms. Good FM. History of oligohydramnios with her last . Twenty-eight week labs reviewed. BS-83, Hgb. 9.8 Reviewed: Anemia, oral iron verses iron infusion. Ref: Heme/Onc for iron infusion. PTL s/s-LOF/Ctx's/VB, when to seek emergent care. discomforts, self help measures. FMC and when to call for further evaluation. Encouraged a healthy well balanced diet, regular walking/exercise in . Hydrate well, 8-10 glasses of water daily. Ultrasound for fluid check. RTO 2wks. Visit Date: 05/06/23 Last Updated by: Inez Melgar CNM Note author: Inez Melgar CNM. 26.1wk. RUPESH. Taking PNV, Doing well with no concerns. Good appetite w/iron enriched foods, stays well hydrated. Denies any LOF, VB, abd. pain or urinary symptoms. Good FM. She reports small amt. of blood from anus with wiping, had the same during her last . Denies any constipation, reports more frequency of soft/watery stools. Denies hemorrhoids, she defers exam until her next visit. Reviewed: PTL s/s-LOF/Ctx's/VB, rectal bleeding increase, when to seek emergent care. Referral to GI sent. discomforts, self help measures. FMC and when to call for further evaluation. Encouraged a healthy well balanced diet, regular walking/exercise in . Hydrate well, 8-10 glasses of water daily. Glucose testing in the next 2 wks Note for work per pt. request of lifting limits provided. RTO 2wks. Visit Date: 04/07/23 Last Updated by: Inez Melgar CNM Note author: Inez Melgar CNM. 22wk. RUPESH. Taking PNV, Doing well with no concerns. Good appetite, stays well hydrated. Denies any LOF, VB, abd. pain, or urinary symptoms. She completed the FAS sent reports she is having a baby girl. Counseled regard regarding flu vaccine patient declined. Reviewed: PTL s/s-LOF/Ctx's/VB, when to seek emergent care. discomforts, self help measures. FM and when to call the office for further eval. Encouraged a healthy well balanced diet, regular walking/exercise in . Hydrate well, 8-10 glasses of water daily. RTO 4wks. Plan glucose between 26 and 28 week. Visit Date: 03/10/23 Last Updated by: Yoel Bhat MD Presenting for visit with no complaints, no cramping, leakage of fluid or bleeding. The the patient is starting to feel movements. On vitamin A/P: 18 week of gestation Discussed with the patient options for chromosomal abnormality screening versus counseling. Options discussed with the patient's include but not limited to: Cell free DNA, 1st trimester combined screening, quad screen, integrated, serum integrated, sequential stepwise, contingent screening, nuchal translucency alone , anomaly scan, in addition to invasive diagnostic test. The approximate gestational age range for screening, detection rate for chromosomal abnormalities, screen positive rate, advantages, disadvantages and limitations associated with each test/approach were discussed with the patient . The availability of invasive diagnostic tests were reviewed with the patient and their sensitivity in addition to the associated risk of miscarriage were discussed with the patient. The differences between screening tests and diagnostic tests were explained to the patient . After our discussion, the patient declined invasive genetic testing and opted to stay with the First trimester screening that is based on cell-free DNA or non-invasive testing (NIPT) which was already done and negative. Discussed with the patient the results of her first-trimester screen being low risk for trisomy 21, 13 and 18, explained to the patient that this test does not screen for open neural tube defects and recommendation is to measure maternal serum alpha fetoprotein in the 2nd trimester optimally between 16-18 week in addition to a anomaly screen to screen for neural tube defect. Quadruple screen ordered and anomalies scan is in the process of being scheduled based Instructions given the patient to call in case of cramping and or bleeding, follow-up in 4 weeks Visit Date: 02/04/23 Last Updated by: Inez Melgar CNM OB Note author: Inez Melgar CNM/Jada Wilkersonon medical front desk specialist 13.1 wk. PNV. Good FM, no LOF or VB. Reports taking PNV gummies without iron. Has concerns of '' bubbles '' on her back/flank that come and go, not present today. Discussed: Advised to do Glucose testing on Thursday her day off, same day as the NT is booked. Monitor rash and if become more bothersome contact office: referral to [facility] or see PCP when rash is present. BV testing and GC/CT panel done today. Await results and treat accordingly. Advised to eat healthy and stay hydrated. Increase iron enriched foods. Reviewed when to call for any VB. Discussed to call the service here for any emergencies/deliveries to be directed to [facility]. RTO 4wk. 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 She is a pleasant 27 year old with LMP 11/04/22 and BRAEDEN 08/11/23 which correlates exactly with US on 01/16/23 at 10w3d, BRAEDEN 08/11/23 and GA today of 11w3d today. Short interval was unplanned but pt wishes to continue. Pt's son will be ~1 year old when baby #2 is born. FOB is the same for both pregnancies. He is supportive. BMI is 38.8 and early glucose has been added to labs. Pt is scheduled for OB PE 02/04/23. Jodi has some nausea but she is managing well. She is on PNV and has been prescribed Vit B6 for nausea but has not started the medication. She is also taking sucralfate and omeprazole for heartburn. She has h/o anxiety and depression, does not have a counselor but reports her boyfriend and family are very supportive. Pt does report she has a half-brother who has a trach and G- tube, nonambulatory and nonverbal but she is not sure of the reason. She will try and find out the problem. Pt also mentioned that she has had diarrhea for a few weeks. We discussed adding fiber to her diet and was advised to discuss this further at her OB PE. Pt denies abd pain or blood per rectum. Pt was given the folder. We discussed danger signs, MD availability 24/11 and how to reach the MD after hours. She is aware that she will deliver at [facility] [place] and have ultrasounds there as well. Pt was also advised of need to transfer to a [facility] practice if her becomes high-risk. Anticipate another vaginal delivery. No complications with her first or delivery. Pt advised that labs, including early glucose have been ordered and she will have them done orion. Advised to decrease sweets and carbs night before and morning of testing. Will schedule NT US and 1st trimester screening at [facility] [place]. Pt verbalizes understanding and agrees with plan. All of her questions were answered to the best of my ability. Coding Level of Care Code [place] Assessment & Plan Assessment & Plan Orders: Orders Group B Strep Culture Today O99.012 - Anemia complicating , second trimester CT NG by PCR Today O99.012 - Anemia complicating , second trimester
== END 2023-07-17 10:59 | disposition home or self-care (01) ==
PROVIDERS: Visit Provider Advanced Practice Midwife
DX: Z34.90 Encounter for supervision of normal pregnancy, unspecified, unspecified trimester (principal)
CPT/HCPCS: 25942

== ENCOUNTER 2023-07-17 10:21 | Outpatient (REF) | payer BC, MEDICAID, SELFPAY ==
[2023-07-18 06:36] LABS: CT PCR NOT DETECTED (Not Detect.); NG PCR NOT DETECTED (Not Detect.)
== END 2023-07-17 10:22 | disposition home or self-care (01) ==
LOC: HO.LNP 10:21
PROVIDERS: Visit Provider Advanced Practice Midwife
DX: O99.012 Anemia complicating pregnancy, second trimester (principal); Z20.2 Contact with and (suspected) exposure to infections with a predominantly sexual mode of transmission
CPT/HCPCS: 0353U; 87081; 87147; 87186

== ENCOUNTER 2023-07-17 12:58 | Outpatient (REF) | payer BC, MEDICAID, SELFPAY ==
[2023-07-17 13:00] VITALS: BP 122/69; PULSE 85; RESP 18; TEMP 36.7; O2SAT 100
[2023-07-17] MEDS: Iron Sucrose Complex 200 MG in 0.9 % Sodium Chloride 100 ML 440 MG IV (13:20)
[2023-07-17 13:52] LABS: MANUAL DIFF FLAG NO
[2023-07-17 13:54] LABS: Basophils Absolute Auto 0.1 X10*3/uL (0.0-0.2); Basophils Percent Auto 0.5 % (0-2); Eosinophils Absolute Auto 0.1 X10*3/uL (0.0-0.4); Eosinophils Percent Auto 0.5 % (0-4); Hematocrit 33.9 % (37.0-47.0); Hemoglobin 10.8 g/dl (12.0-16.0); Imm Gran Abs Auto 0.09 X10*3/uL (0.00-0.03); Imm Gran Pct Auto 0.9 % (0.0-0.4); Lymphocytes Absolute Auto 1.9 X10*3/uL (1.2-4.9); Mean Corpuscular HGB Conc 31.9 g/dl (31.0-35.0); Mean Corpuscular Hemoglobin 26.7 pg (27.0-33.0); Mean Corpuscular Volume 83.7 fL (80.0-98.0); Mean Platelet Volume 12.4 fL (9.4-12.3); Monocytes Absolute Auto 0.6 X10*3/uL (0.1-1.2); Monocytes Percent Auto 5.3 % (2-11); Neutrophils Absolute Auto 7.8 x10*3/uL (2.0-8.3); Neutrophils Percent Auto 74.8 % (45-73); Platelet Count 182 X10*3/uL (160-400); Red Blood Count 4.05 X10*6/uL (4.20-5.50); Red Cell Distribution Width 17.6 % (11.0-16.0); White Blood Count 10.4 X10*3/uL (4.8-10.8)
[2023-07-17 14:28] LABS: Ferritin 38 ng/mL (10-122)
== END 2023-07-17 12:59 | disposition home or self-care (01) ==
LOC: HO.MDS 12:58
PROVIDERS: Visit Provider Internal Medicine Medical Oncology
DX: D50.9 Iron deficiency anemia, unspecified (principal)
CPT/HCPCS: 36415; 82728; 85025; 96365; 99212; J1756

== ENCOUNTER 2023-07-24 12:24 | Outpatient (REF) | payer BC, MEDICAID, SELFPAY ==
[2023-07-24 12:31] VITALS: BP 114/65; PULSE 84; RESP 20; TEMP 36.5; O2SAT 99
[2023-07-24] MEDS: Iron Sucrose Complex 200 MG in 0.9 % Sodium Chloride 100 ML 440 MG IV (12:42)
--- NOTE | 2023-07-24 13:00 | PC.NURSE ---
pt ambulated to s/p infusion and iv removal. upon return from br, pt appears pale and reports feeling dizziness and numbness. pt sat down; vs taken and revealed hr of 135bpm. pt states she has not had anything to eat or drink and reports she is due for baby delivery on august 10. slow deep breathing encouraged; immediate gradual decrease in hr back to normal 80bpm noted after a few minutes of slow deep breathing. snack and heber emilia provided and vs stabilized. pt called for ride to drive her home instead of driving herself home. pt encouraged to seek emergency help if unusual arise and persist; verbalizes understanding. after 15 minutes, pt reports she feels much better; skin appears wpd and ambulated out of mds with slow steady gait.
== END 2023-07-24 12:25 | disposition home or self-care (01) ==
LOC: HO.MDS 12:24
PROVIDERS: Visit Provider Internal Medicine Medical Oncology
DX: D50.9 Iron deficiency anemia, unspecified (principal)
CPT/HCPCS: 96374; 99212; J1756

== ENCOUNTER 2023-07-24 14:06 | Outpatient (AMB) | payer BC, MEDICAID, SELFPAY ==
--- NOTE | 2023-07-24 14:43 | A.OFFVISPN_ITS ---
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 Required: No Information Interpreted: non-clinical & clinical Accompanied by: Self / Same As Patient Allergies amoxicillin [Amoxicillin] Allergy (Unknown, Verified 07/24/23 14:45) UNKNOWN Medication List - Last Reviewed 07/24/23 by Kylie Fletcher CMA aspirin PO cephalexin 500 mg PO BID famotidine (Pepcid AC) 10 mg PO BID PRN 90 days PNV no.[id number] 400 mcg-35 mg- 25 mg-5 mg ( Gummies) 1 tab PO DAILY Patient : Yes PFSH Medical History History of oligohydramnios Nausea Missed menses Positive test Encounter for supervision of normal in third trimester Screening for depression Fatigue Cervical cancer screening Well woman exam with routine gynecological exam Early stage of Genetic screening Adult BMI > 30 History of MRSA infection Depression with anxiety Migraine Family History Brother Tracheostomy present Feeding by G-tube Social History Household Members: Children Both parents involved: Yes Caregiver staying overnight: No Housing: House Are you a primary animal care supervisor to a significant other at home: No Do you presently have visiting nurse or other home services: No 75 years or older and lives alone: No Alcohol intake: never Patient Tobacco Use Status: Never used Tobacco Special cuong needs: No Agree to transfusion: Yes service: No Current occupational status: employed 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 Date GA/Weeks Outcome Route Wt Inf Gender Labor Leena Anesthesia Location Provider Complicate 08/27/22 39 live - full term vaginal delivery 7 lb 3 oz Male none [facility] none Visit BRAEDEN Calculator Estimated Delivery Date Method Current WG Current Estimate 08/11/23 LMP (Certain) 37w 3d Other Estimates 08/11/23 Ultrasound #1 37w 3d Expected Delivery Route/Plan Specific Issues/Plans 27 yr. old G 2 P 1 EDC: 08/11/2023 Blood type: A pos Problem List: 1. Closely spaced pregnancies delivered August 2022 2. obesity 3. Anemia-does not tolerate iron. Advised iron rich foods on 02/04/2023./Hematology Oncology referral placed by Inez on 05/19/2023. Testing: Panorama/and or First Tri screen: risk NT scan: Booked 02/09/2023 AFP: FAS: Normal Glucose: early 75 28 wk glucose: 83 CBC 1st Tri: 11.1 28 wk. CBC: 9.9/31.0/239 GBS: done 07/17/23... 06/02/23 MFN scan to check fluid-- fluid within normal limits at 30 weeks. Vaccinations: Flu: informed, declined Covid: Tdap: given 07/01/23. 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-?-?-?-?-?- 04/07/23 -?-?-?-?-?-?-?-?-?-?-?-?- 22w 0d 229 lb (+9 lb) 24 150 100/60 229 lb -?-?-?-?-?-?-?-?-?-?-?-?- 05/06/23 -?-?-?-?-?-?-?-?-?-?-?-?- 26w 1d 232 lb (+12 lb) 26 150 active 104/60 232 lb -?-?-?-?-?-?-?-?-?-?-?-?- 05/19/23 -?-?-?-?-?-?-?-?-?-?-?-?- 28w 0d 233 lb (+13 lb) 28 140 active 100/60 233 lb -?-?-?-?-?-?-?-?-?-?-?-?- 06/05/23 -?-?-?-?-?-?-?-?-?-?-?-?- 30w 3d 232 lb (+12 lb) 32 140 active 110/68 232 lb -?-?-?-?-?-?-?-?-?-?-?-?- 06/19/23 -?-?-?-?-?-?-?-?-?-?-?-?- 32w 3d 240 lb (+20 lb) 36 140 active 124/60 240 lb -?-?-?-?-?-?-?-?-?-?-?-?- 07/01/23 -?-?-?-?-?-?-?-?-?-?-?-?- 34w 1d 237 lb (+17 lb) 36 150 active 104/60 237 lb -?-?-?-?-?-?-?-?-?-?-?-?- 07/17/23 -?-?-?-?-?-?-?-?-?--?-?-?- 36w 3d 240 lb (+20 lb) 38 140 active 118/66 240 lb -?-?-?-?-?-?-?-?-?-?-?-?- 07/24/23 -?-?-?-?-?-?-?-?-?-?-?-?- 37w 3d 240 lb 4.862 oz (+20 lb 4.862 oz) term 39 ?vtx 150 active absent 108/66 240 lb 4.862 oz -?-?-?--?-?-?-?-?-?-?-?-?- Notes Visit Date: 07/24/23 Last Updated by: Marci Reis CNM Patient is here for visit at 37 weeks and 3 days. She has been feeling a lot of pressure like the baby's moving down and some cramping. No actual contractions yet. The baby is very very active heart obtained very high on patient's upper right side patient says her last baby was like that to with the heart so high up but the baby was vertex it potentially feels vertex by Severiano's but given adipose it is difficult to tell. I am going to order an ultrasound to verify vertex as patient is now 37 weeks and 3 days and if the baby was not vertex this would be the time to address that. We discussed control she says she has not interested in taking anything or having anything put in her. She said she did not want to think about it yet I did press the subject and she said they would take care of themselves and enquiring more she did say that she would use condoms reviewed that this is a perfectly acceptable method of control and it is a plan over time she might be able to augment it with more awareness of cycles but immediately is very difficult. She is group B strep positive she is penicillin allergic. Sensitivities were done and the GBS is sensitive to vancomycin and clindamycin both as well as the penicillins. She said she was group B strep positive the last time and was treated with something as well in labor. At the end of the visit the patient also shared that she was seen at urgent care yesterday and diagnosed with an ear infection that has been bother ing her for couple of months and they gave her an antibiotic called cephalexin. She said she was COVID negative. She started the antibiotic this morning. I did some teaching about the symptoms of yeast infections and offered to prescribe her Monistat in case she ends up with 1 and discussed factors that can contribute to yeast infection. Prescription sent to her [facility] pharmacy for p.r.n. use. Visit Date: 07/17/23 Last Updated by: Inez Melgar CNM Note author: Inez Melgar CNM. 36.3wk. PAULINE. Taking PNV, Doing well with no concerns. Good appetite, stays well hydrated. Denies any LOF, VB, abd. pain or urinary symptoms. Good FM. GBS, GC chlamydia obtained. Note revised for work today for additional date documentation. Reviewed: PTL s/s-LOF/Ctx's/VB, when to seek emergent care. discomforts, self help measures. FMC and when to call for further evaluation. Encouraged a healthy well balanced diet, regular walking/exercise in . Hydrate well, 8-10 glasses of water daily. RTO 1wks. Visit Date: 07/01/23 Last Updated by: Inez Melgar CNM Note author: Inez Melgar CNM. 34.1wk. PAULINE. Taking PNV, Doing well with no concerns. Good appetite, stays well hydrated. Denies any LOF, VB, abd. pain or urinary symptoms. Good FM. Has not started the Pepcid. Reports right ear pain and soreness to her throat, Claritin not helping, does not have a PCP. 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 Reviewed: PTL s/s-LOF/Ctx's/VB, when to seek emergent care. discomforts, self help measures. See Urgent care for ear pain. Start Pepcid. Tdap today. Note for work per request given. Unsure of control plans. FMC and when to call for further evaluation. Encouraged a healthy well balanced diet, regular walking/exercise in . Hydrate well, 8-10 glasses of water daily. Informed GBS at n/v. RTO 2wks. Visit Date: 06/19/23 Last Updated by: Marci Reis CNM Patient is here at 32 weeks and 3 days for her visit done at the [facility]. She was not able to tolerate iron so has been seeing Hematology and getting iron transfusions she is gotten 2 so far she has not sure she has feeling a difference yet. Baby is active. She had an ultrasound at [facility] on June 02 to check for fluid as there was a history of oligohydramnios with her previous . Fluid was deemed to be within normal limits. There is jumping fundal height today but it feels to be all adipose. Reviewed her plans for control. This was closely spaced after the other 1 in her other baby is 9-month-old. She is completely undecided about control and has not thought about it yet. We reviewed every method commonly used including condoms pills patches rings Depo-Provera Nexplanon and IUDs with and without hormones. She is disinclined to choose an IUD because her cousin has cramping with it however she had reasons why she would not be able to use every other method as well including remembering to take pills wanting to breastfeed and concern about weight gain with various methods. She tends to get very crampy periods. I recommend she consider and do more research about the Mirena IU S as it may be the more reliable method for her and she has ruled out in her mind every other method as well. To continue the discussions. Discussed that sometimes the Mirena maybe offered at [facility] after delivery but otherwise we would want to place it after does complete involution of the uterus after 8 weeks RTC 2 weeks. May be seen at either office, vaccinations would occur at the [facility] office. Visit Date: 06/05/23 Last Updated by: Inez Melgar CNM Note author: Inez Melgar CNM. 30.3wk. PAULINE. Taking PNV, Doing well with no concerns. Good appetite, stays well hydrated. Denies any LOF, VB, abd. pain or urinary symptoms. Good FM. Has an iron infusion next week. She reports heartburn, taking Tums not completely effective though. Reviewed: PTL s/s-LOF/Ctx's/VB, when to seek emergent care. discomforts, self help measures. FMC and when to call for further evaluation. Encouraged a healthy well balanced diet, regular walking/exercise in . Hydrate well, 8-10 glasses of water daily. RTO 2wks. Visit Date: 05/19/23 Last Updated by: Inez Melgar CNM Note author: Inez Melgar CNM. 28wk. PAULINE. Taking PNV, Doing well with concerns: had a few episodes of feeling lightheaded, a wave of heat and felt a numbing sensation, while sitting and standing. Denies any chest pain, shortness breath, dizziness, heart palpitations. Denies any dehydration. History of anemia has not started her iron yet due to concerns of GI effects from her last . Good appetite. Denies any LOF, VB, abd. pain or urinary symptoms. Good FM. History of oligohydramnios with her last . Twenty-eight week labs reviewed. BS-83, Hgb. 9.8 Reviewed: Anemia, oral iron verses iron infusion. Ref: Heme/Onc for iron infusion. PTL s/s-LOF/Ctx's/VB, when to seek emergent care. discomforts, self help measures. FMC and when to call for further evaluation. Encouraged a healthy well balanced diet, regular walking/exercise in . Hydrate well, 8-10 glasses of water daily. Ultrasound for fluid check. RTO 2wks. Visit Date: 05/06/23 Last Updated by: Inez Melgar CNM Note author: Inez Melgar CNM. 26.1wk. PAULINE. Taking PNV, Doing well with no concerns. Good appetite w/iron enriched foods, stays well hydrated. Denies any LOF, VB, abd. pain or urinary symptoms. Good FM. She reports small amt. of blood from anus with wiping, had the same during her last . Denies any constipation, reports more frequency of soft/watery stools. Denies hemorrhoids, she defers exam until her next visit. Reviewed: PTL s/s-LOF/Ctx's/VB, rectal bleeding increase, when to seek emergent care. Referral to GI sent. discomforts, self help measures. FMC and when to call for further evaluation. Encouraged a healthy well balanced diet, regular walking/exercise in . Hydrate well, 8-10 glasses of water daily. Glucose testing in the next 2 wks Note for work per pt. request of lifting limits provided. RTO 2wks. Visit Date: 04/07/23 Last Updated by: Inez Melgar CNM Note author: Inez Melgar CNM. 22wk. PAULINE. Taking PNV, Doing well with no concerns. Good appetite, stays well hydrated. Denies any LOF, VB, abd. pain, or urinary symptoms. She co mpleted the FAS sent reports she is having a baby girl. Counseled regard regarding flu vaccine patient declined. Reviewed: PTL s/s-LOF/Ctx's/VB, when to seek emergent care. discomforts, self help measures. FM and when to call the office for further eval. Encouraged a healthy well balanced diet, regular walking/exercise in . Hydrate well, 8-10 glasses of water daily. RTO 4wks. Plan glucose between 26 and 28 week. Visit Date: 03/10/23 Last Updated by: Yoel Bhat MD Presenting for visit with no complaints, no cramping, leakage of fluid or bleeding. The the patient is starting to feel movements. On vitamin A/P: 18 week of gestation Discussed with the patient options for chromosomal abnormality screening versus counseling. Options discussed with the patient's include but not limited to: Cell free DNA, 1st trimester combined screening, quad screen, integrated, serum integrated, sequential stepwise, contingent screening, nuchal translucency alone , anomaly scan, in addition to invasive diagnostic test. The approximate gestational age range for screening, detection rate for chromosomal abnormalities, screen positive rate, advantages, disadvantages and limitations associated with each test/approach were discussed with the patient . The availability of invasive diagnostic tests were reviewed with the patient and their sensitivity in addition to the associated risk of miscarriage were discussed with the patient. The differences between screening tests and diagnostic tests were explained to the patient . After our discussion, the patient declined invasive genetic testing and opted to stay with the First trimester screening that is based on cell-free DNA or non-invasive testing (NIPT) which was already done and negative. Discussed with the patient the results of her first-trimester screen being low risk for trisomy 21, 13 and 18, explained to the patient that this test does not screen for open neural tube defects and recommendation is to measure maternal serum alpha fetoprotein in the 2nd trimester optimally between 16-18 week in addition to a anomaly screen to screen for neural tube defect. Quadruple screen ordered and anomalies scan is in the process of being scheduled based Instructions given the patient to call in case of cramping and or bleeding, follow-up in 4 weeks Visit Date: 02/04/23 Last Updated by: Inez Melgar CNM OB Note author: Inez Melgar CNM/[facility] medical director 13.1 wk. PNV. Good FM, no LOF or VB. Reports taking PNV gummies without iron. Has concerns of '' bubbles '' on her back/flank that come and go, not present today. Discussed: Advised to do Glucose testing on Thursday her day off, same day as the NT is booked. Monitor rash and if become more bothersome contact office: referral to [facility] or see PCP when rash is present. BV testing and GC/CT panel done today. Await results and treat accordingly. Advised to eat healthy and stay hydrated. Increase iron enriched foods. Reviewed when to call for any VB. Discussed to call the service here for any emergencies/deliveries to be directed to [facility]. RTO 4wk. 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 She is a pleasant 27 year old with LMP 11/04/22 and BRAEDEN 08/11/23 which correlates exactly with US on 01/16/23 at 10w3d, BRAEDEN 08/11/23 and GA today of 11w3d today. Short interval was unplanned but pt wishes to continue. Pt's son will be ~1 year old when baby #2 is born. FOB is the same for both pregnancies. He is supportive. BMI is 38.8 and early glucose has been added to labs. Pt is scheduled for OB PE 02/04/23. Jodi has some nausea but she is managing well. She is on PNV and has been prescribed Vit B6 for nausea but has not started the medication. She is also taking sucralfate and omeprazole for heartburn. She has h/o anxiety and depression, does not have a counselor but reports her boyfriend and family are very supportive. Pt does report she has a half-brother who has a trach and G- tube, nonambulatory and nonverbal but she is not sure of the reason. She will try and find out the problem. Pt also mentioned that she has had diarrhea for a few weeks. We discussed adding fiber to her diet and was advised to discuss this further at her OB PE. Pt denies abd pain or blood per rectum. Pt was given the folder. We discussed danger signs, MD availability 24/11 and how to reach the MD after hours. She is aware that she will deliver at [facility] and have ultrasounds there as well. Pt was also advised of need to transfer to a [facility] practice if her becomes high-risk. Anticipate another vaginal delivery. No complications with her first or delivery. Pt advised that labs, including early glucose have been ordered and she will have them done orion. Advised to decrease sweets and carbs night before and morning of testing. Will schedule NT US and 1st trimester screening at [facility]. Pt verbalizes understanding and agrees with plan. All of her questions were answered to the best of my ability. Coding Level of Care Code Pradeep Diagnoses Anemia affecting in second trimester O99.012 control counseling Z30.09 Group B streptococcal carriage complicating O99.820 Breech presentation O32.1XX0 Ear infection H66.90 Assessment & Plan Assessment & Plan (1) Anemia affecting in second trimester: Code(s): O99.012 - Anemia complicating , second trimester Category: Medical (2) control counseling: Code(s): Z30.09 - Encounter for other general counseling and advice on contraception Category: Medical (3) Group B streptococcal carriage complicating : Comment: pcn allergic, sensitive to all Code(s): O99.820 - Streptococcus B carrier state complicating Category: Medical (4) Breech presentation: Comment: 2022-POSSIBLE- to be verified now by stat u/s-- VERTEX. 07/24/23- to have u/s to verify presentation again. Code(s): O32.1XX0 - Maternal care for breech presentation, not applicable or unspecified Category: Medical (5) Ear infection: Comment: Started on cephalexin this morning per urgent care visit yesterday. Teaching done and prescription sent for Monistat cream in case she gets a yeast infection. Code(s): H66.90 - Otitis media, unspecified, unspecified ear Category: Medical Orders: Orders US OB follow up Today O32.1XX0 - Maternal care for breech presentation, not applicable or unspecified, O99.012 - Anemia complicating , second trimester, O99.820 - Streptococcus B carrier state complicating , Z30.09 - Encounter for other general counseling and advice on contraception
[2023-07-24 14:44] VITALS: BP 108/66; BMI 41.2
== END 2023-07-24 15:46 | disposition home or self-care (01) ==
LOC: HO.HWS 14:06
PROVIDERS: Visit Provider Advanced Practice Midwife
DX: O99.012 Anemia complicating pregnancy, second trimester (principal); Z30.09 Encounter for other general counseling and advice on contraception; O99.820 Streptococcus B carrier state complicating pregnancy; O32.1XX0 Maternal care for breech presentation, not applicable or unspecified; H66.90 Otitis media, unspecified, unspecified ear
CPT/HCPCS: 25942

== ENCOUNTER 2023-07-29 13:21 | Outpatient (REF) | payer BC, MEDICAID, SELFPAY ==
[2023-07-29 13:26] VITALS: BP 125/69; PULSE 95; RESP 20; TEMP 36.9; O2SAT 99
[2023-07-29] MEDS: Iron Sucrose Complex 200 MG in 0.9 % Sodium Chloride 100 ML 440 MG IV (13:36)
== END 2023-07-29 13:22 | disposition home or self-care (01) ==
LOC: HO.MDS 13:21
PROVIDERS: Visit Provider Internal Medicine Medical Oncology
DX: D50.9 Iron deficiency anemia, unspecified (principal)
CPT/HCPCS: 96365; J1756

== ENCOUNTER 2023-07-29 14:56 | Outpatient (REF) | payer BC, MEDICAID, SELFPAY ==
--- NOTE | ~2023-07-29 | US_ITS ---
EXAMINATION: US OBSTETRICAL FOLLOW UP WITH BIOPHYSICAL PROFILE CLINICAL INFORMATION: Positioning of 38 weeks 1 day COMPARISON: Obstetrical ultrasound 01/16/2023 TECHNIQUE: Real time transabdominal imaging with M-mode Doppler. POSITION: Vertex HR: 129 bpm US/US OB follow up IMPRESSION: Single intrauterine gestation in vertex position.
== END 2023-07-29 14:57 | disposition home or self-care (01) ==
LOC: HO.US 14:56
PROVIDERS: Visit Provider Advanced Practice Midwife
DX: O99.013 Anemia complicating pregnancy, third trimester (principal); D64.9 Anemia, unspecified; O99.820 Streptococcus B carrier state complicating pregnancy; O32.1XX0 Maternal care for breech presentation, not applicable or unspecified; Z3A.38 38 weeks gestation of pregnancy
CPT/HCPCS: 76816

== ENCOUNTER 2023-07-31 12:47 | Outpatient (AMB) | payer BC, MEDICAID, SELFPAY ==
[2023-07-31 12:48] VITALS: BP 108/64; BMI 48.4
--- NOTE | 2023-07-31 12:48 | A.OFFVISPN_ITS ---
Intake Vital Signs 07/31/23 12:48 Height 5 ft Weight 248 lb BMI 48.4 BP 108/64 Intake Visit Reasons: RUPESH It Support Specialist Required: No Information Interpreted: non-clinical & clinical Accompanied by: Self / Same As Patient Allergies amoxicillin [Amoxicillin] Allergy (Unknown, Verified 07/31/23 12:56) UNKNOWN Patient : Yes PFSH Medical History History of oligohydramnios Nausea Missed menses Positive test Encounter for supervision of normal in third trimester Screening for depression Fatigue Cervical cancer screening Well woman exam with routine gynecological exam Early stage of Genetic screening Adult BMI > 30 History of MRSA infection Depression with anxiety Migraine Family History Brother Tracheostomy present Feeding by G-tube Social History Household Members: Children Both parents involved: Yes Caregiver staying overnight: No Housing: House Are you a primary healthcare financial analyst to a significant other at home: No Do you presently have visiting nurse or other home services: No 75 years or older and lives alone: No Alcohol intake: never Patient Tobacco Use Status: Never used Tobacco Special cuong needs: No Agree to transfusion: Yes service: No Current occupational status: employed 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 Date GA/Weeks Outcome Route Wt Inf Gender Labor Leena Anesthesia Location Provider Complicate 08/27/22 39 live - full term vaginal delivery 7 lb 3 oz Male none [facility] none Visit BRAEDEN Calculator Estimated Delivery Date Method Current WG Current Estimate 08/11/23 LMP (Certain) 38w 3d Other Estimates 08/11/23 Ultrasound #1 38w 3d Expected Delivery Route/Plan Specific Issues/Plans 27 yr. old G 2 P 1 EDC: 08/11/2023 Blood type: A pos Problem List: 1. Closely spaced pregnancies delivered August 2022 2. obesity 3. Anemia-does not tolerate iron. Advised iron rich foods on 02/04/2023./Hematology Oncology. Testing: Panorama/and or First Tri screen: risk NT scan: Booked 02/09/2023 AFP: FAS: Normal Glucose: early 75 28 wk glucose: 83 CBC 1st Tri: 11.1 28 wk. CBC: 9.9/31.0/239 GBS: done 07/17/23... 06/02/23 MFN scan to check fluid-- fluid within normal limits at 30 weeks. Vaccinations: Flu: informed, declined Tdap: given 07/01/23. 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 Transportation: own Labor, and Concerns: Labor support: Plan: Feeding Plans: breast feeding control: condoms OB Visit Log Initial Weight: 220 lb Date -?-?-?-?-?-?-?-?-?-?-?-?- EGA Weight Gest Week Fundal Ht Present FHR move Efface % Edema BP PrePreg We Weight GTT -?-?-?-?-?-?-?-?-?-?-?-?- Glucose LV Protein Blood Type 01/22/23 -?-?-?-?-?-?-?-?-?-?-?-?- 11w 2d 224 lb (+4 lb) 224 lb -?-?-?-?-?-?-?-?-?-?-?-?- 02/04/23 -?-?-?-?-?-?-?-?-?-?-?-?- 13w 1d 223 lb (+3 lb) 160 116/72 223 lb -?-?-?-?-?-?-?-?-?-?-?-?- 03/10/23 -?-?-?-?-?-?-?-?-?-?-?-?- 18w 0d 223 lb (+3 lb) 150 110/70 223 lb -?-?-?-?-?-?-?-?-?-?-?-?- 04/07/23 -?-?-?-?-?-?-?-?-?-?-?-?- 22w 0d 229 lb (+9 lb) 24 150 100/60 229 lb -?-?-?-?-?-?-?-?-?-?-?-?- 05/06/23 -?-?-?-?-?-?-?-?-?-?-?-?- 26w 1d 232 lb (+12 lb) 26 150 active 104/60 232 lb -?-?--?-?-?-?-?-?-?-?-?-?- 05/19/23 -?-?-?-?-?-?-?-?-?-?-?-?- 28w 0d 233 lb (+13 lb) 28 140 active 100/60 233 lb -?-?-?-?-?-?-?-?-?-?-?-?- 06/05/23 -?-?-?-?-?-?-?-?-?-?-?-?- 30w 3d 232 lb (+12 lb) 32 140 active 110/68 232 lb -?-?-?-?-?-?-?-?-?-?-?-?- 06/19/23 -?-?-?-?-?-?-?-?-?-?-?-?- 32w 3d 240 lb (+20 lb) 36 140 active 124/60 240 lb -?-?-?-?-?-?-?-?-?-?-?-?- 07/01/23 -?-?-?-?-?-?-?-?-?-?-?-?- 34w 1d 237 lb (+17 lb) 36 150 active 104/60 237 lb -?-?-?-?-?-?-?-?-?-?-?-?- 07/17/23 -?-?-?-?-?-?-?-?-?-?-?-?- 36w 3d 240 lb (+20 lb) 38 140 active 118/66 240 lb -?-?-?-?-?-?-?-?-?-?-?-?- 07/24/23 -?-?-?-?-?-?-?-?-?-?-?-?- 37w 3d 240 lb 4.862 oz (+20 lb 4.862 oz) term 39 ?vtx 150 active absent 108/66 240 lb 4.862 oz -?-?-?-?-?-?-?-?-?-?-?-?- 07/31/23 -?-?-?-?-?-?-?-?-?-?-?-?- 38w 3d 248 lb (+28 lb) 39 vtx 150 active 108/64 248 lb -?-?-?-?-?-?-?-?-?-?-?-?- Notes Visit Date: 07/31/23 Last Updated by: Inez Melgar CNM Note author: Inez Melgar CNM. 38wk. RUPESH. Taking PNV, Doing well with no concerns. Good appetite, stays well hydrated. Denies any LOF, VB, abd. pain or urinary symptoms. Iron infusions x 5, next appt. 08/05/23. She reports pressure, cramping has increased. Prepped at home for her baby. Still working, has a 3 month maternity leave planned. Has backup care for her firstborn when she goes into labor. Prefer not to do control and would like to just use condoms for the time being when she is . Requests a exam-VE: 2cm/soft/70/-2-3vtx. Reviewed: Labor/LOF/Ctx's/VB, when to seek emergent care. discomforts, self help measures. FM and when to call the office for further eval. Encouraged a healthy well balanced diet, regular walking/exercise in . Hydrate well, 8-10 glasses of water daily. RTO 1wks. Visit Date: 07/24/23 Last Updated by: Marci Reis CNM Patient is here for visit at 37 weeks and 3 days. She has been feeling a lot of pressure like the baby's moving down and some cramping. No actual contractions yet. The baby is very very active heart obtained very high on patient's upper right side patient says her last baby was like that to with the heart so high up but the baby was vertex it potentially feels vertex by Severiano's but given adipose it is difficult to tell. I am going to order an ultrasound to verify vertex as patient is now 37 weeks and 3 days and if the baby was not vertex this would be the time to address that. We discussed control she says she has not interested in taking anything or having anything put in her. She said she did not want to think about it yet I did press the subject and she said they would take care of themselves and enquiring more she did say that she would use condoms reviewed that this is a perfectly acceptable method of control and it is a plan over time she might be able to augment it with more awareness of cycles but immediately is very difficult. She is group B strep positive she is penicillin allergic. Sensitivities were done and the GBS is sensitive to vancomycin and clindamycin both as well as the penicillins. She said she was group B strep positive the last time and was treated with something as well in labor. At the end of the visit the patient also shared that she was seen at urgent care yesterday and diagnosed with an ear infection that has been bothering her for couple of months and they gave her an antibiotic called cephalexin. She said she was COVID negative. She started the antibiotic this morning. I did some teaching about the symptoms of yeast infections and offered to prescribe her Monistat in case she ends up with 1 and discussed factors that can contribute to yeast infection. Prescription sent to her [facility] pharmacy for p.r.n. use. Visit Date: 07/17/23 Last Updated by: Inez Melgar CNM Note author: Inez Melgar CNM. 36.3wk. RUPESH. Taking PNV, Doing well with no concerns. Good appetite, stays well hydrated. Denies any LOF, VB, abd. pain or urinary symptoms. Good FM. GBS, GC chlamydia obtained. Note revised for work today for additional date documentation. Reviewed: PTL s/s-LOF/Ctx's/VB, when to seek emergent care. discomforts, self help measures. FMC and when to call for further evaluation. Encouraged a healthy well balanced diet, regular walking/exercise in . Hydrate well, 8-10 glasses of water daily. RTO 1wks. Visit Date: 07/01/23 Last Updated by: Inez Melgar CNM Note author: Inez Melgar CNM. 34.1wk. RUPESH. Taking PNV, Doing well with no concerns. Good appetite, stays well hydrated. Denies any LOF, VB, abd. pain or urinary symptoms. Good FM. Has not started the Pepcid. Reports right ear pain and soreness to her throat, Mirnaitin not helping, does not have a PCP. 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 Reviewed: PTL s/s-LOF/Ctx's/VB, when to seek emergent care. discomforts, self help measures. See Urgent care for ear pain. Start Pepcid. Tdap today. Note for work per request given. Unsure of control plans. FMC and when to call for further evaluation. Encouraged a healthy well balanced diet, regular walking/exercise in . Hydrate well, 8-10 glasses of water daily. Informed GBS at n/v. RTO 2wks. Visit Date: 06/19/23 Last Updated by: Marci Reis CNM Patient is here at 32 weeks and 3 days for her visit done at the [facility]. She was not able to tolerate iron so has been seeing Hematology and getting iron transfusions she is gotten 2 so far she has not sure she has feeling a difference yet. Baby is active. She had an ultrasound at [facility] on June 02 to check for fluid as there was a history of oligohydramnios with her previous . Fluid was deemed to be within normal limits. There is jumping fundal height today but it feels to be all adipose. Reviewed her plans for control. This was closely spaced after the other 1 in her other baby is 9-month-old. She is completely undecided about control and has not thought about it yet. We reviewed every method commonly used including condoms pills patches rings Depo-Provera Nexplanon and IUDs with and without hormones. She is disinclined to choose an IUD because her cousin has cramping with it however she had reasons why she would not be able to use every other method as well including remembering to take pills wanting to breastfeed and concern about weight gain with various methods. She tends to get very crampy periods. I recommend she consider and do more research about the Mirena IU S as it may be the more reliable method for her and she has ruled out in her mind every other method as well. To continue the discussions. Discussed that sometimes the Mirena maybe offered at [facility] after delivery but otherwise we would want to place it after does complete involution of the uterus after 8 weeks RTC 2 weeks. May be seen at either office, vaccinations would occur at the [facility] office. Visit Date: 06/05/23 Last Updated by: Inze Melgar CNM Note author: Inez Melgar CNM. 30.3wk. RUPESH. Taking PNV, Doing well with no concerns. Good appetite, stays well hydrated. Denies any LOF, VB, abd. pain or urinary symptoms. Good FM. Has an iron infusion next week. She reports heartburn, taking Tums not completely effective though. Reviewed: PTL s/s-LOF/Ctx's/VB, when to seek emergent care. discomforts, self help measures. FMC and when to call for further evaluation. Encouraged a healthy well balanced diet, regular walking/exercise in . Hydrate well, 8-10 glasses of water daily. RTO 2wks. Visit Date: 05/19/23 Last Updated by: Inez Melgar CNM Note author: Inez Melgar CNM. 28wk. RUPESH. Taking PNV, Doing well with concerns: had a few episodes of feeling lightheaded, a wave of heat and felt a numbing sensation, while sitting and standing. Denies any chest pain, shortness breath, dizziness, heart palpitations. Denies any dehydration. History of anemia has not started her iron yet due to concerns of GI effects from her last . Good appetite. Denies any LOF, VB, abd. pain or urinary symptoms. Good FM. History of oligohydramnios with her last . Twenty-eight week labs reviewed. BS-83, Hgb. 9.8 Reviewed: Anemia, oral iron verses iron infusion. Ref: Heme/Onc for iron infusion. PTL s/s-LOF/Ctx's/VB, when to seek emergent care. discomforts, self help measures. FMC and when to call for further evaluation. Encouraged a healthy well balanced diet, regular walking/exercise in . Hydrate well, 8-10 glasses of water daily. Ultrasound for fluid check. RTO 2wks. Visit Date: 05/06/23 Last Updated by: Inez Melgar CNM Note author: Inez Melgar CNM. 26.1wk. RUPESH. Taking PNV, Doing well with no concerns. Good appetite w/iron enriched foods, stays well hydrated. Denies any LOF, VB, abd. pain or urinary symptoms. Good FM. She reports small amt. of blood from anus with wiping, had the same during her last . Denies any constipation, reports more frequency of soft/watery stools. Denies hemorrhoids, she defers exam until her next visit. Reviewed: PTL s/s-LOF/Ctx's/VB, rectal bleeding increase, when to seek emergent care. Referral to GI sent. discomforts, self help measures. FMC and when to call for further evaluation. Encouraged a healthy well balanced diet, regular walking/exercise in . Hydrate well, 8-10 glasses of water daily. Glucose testing in the next 2 wks Note for work per pt. request of lifting limits provided. RTO 2wks. Visit Date: 04/07/23 Last Updated by: Inez Melgar CNM Note author: Inez Melgar CNM. 22wk. RUPESH. Taking PNV, Doing well with no concerns. Good appetite, stays well hydrated. Denies any LOF, VB, abd. pain, or urinary symptoms. She completed the FAS sent reports she is having a baby girl. Counseled regard regarding flu vaccine patient declined. Reviewed: PTL s/s-LOF/Ctx's/VB, when to seek emergent care. discomforts, self help measures. FM and when to call the office for further eval. Encouraged a healthy well balanced diet, regular walking/exercise in . Hydrate well, 8-10 glasses of water daily. RTO 4wks. Plan glucose between 26 and 28 week. Visit Date: 03/10/23 Last Updated by: Yoel Bhat MD Presenting for visit with no complaints, no cramping, leakage of fluid or bleeding. The the patient is starting to feel movements. On vitamin A/P: 18 week of gestation Discussed with the patient options for chromosomal abnormality screening versus counseling. Options discussed with the patient's include but not limited to: Cell free DNA, 1st trimester combined screening, quad screen, integrated, serum integrated, sequential stepwise, contingent screening, nuchal translucency alone , anomaly scan, in addition to invasive diagnostic test. The approximate gestational age range for screening, detection rate for chromosomal abnormalities, screen positive rate, advantages, disadvantages and limitations associated with each test/approach were discussed with the patient . The availability of invasive diagnostic tests were reviewed with the patient and their sensitivity in addition to the associated risk of miscarriage were discussed with the patient. The differences between screening tests and diagnostic tests were explained to the patient . After our discussion, the patient declined invasive genetic testing and opted to stay with the First trimester screening that is based on cell-free DNA or non-invasive testing (NIPT) which was already done and negative. Discussed with the patient the results of her first-trimester screen being low risk for trisomy 21, 13 and 18, explained to the patient that this test does not screen for open neural tube defects and recommendation is to measure maternal serum alpha fetoprotein in the 2nd trimester optimally between 16-18 week in addition to a anomaly screen to screen for neural tube defect. Quadruple screen ordered and anomalies scan is in the process of being scheduled based Instructions given the patient to call in case of cramping and or bleeding, follow-up in 4 weeks Visit Date: 02/04/23 Last Updated by: Inez Melgar CNM OB Note author: Inez Melgar CNM/Jada Chun medical service technician 13.1 wk. PNV. Good FM, no LOF or VB. Reports taking PNV gummies without iron. Has concerns of '' bubbles '' on her back/flank that come and go, not present today. Discussed: Advised to do Glucose testing on Thursday her day off, same day as the NT is booked. Monitor rash and if become more bothersome contact office: referral to Prosthetic Assistant or see PCP when rash is present. BV testing and GC/CT panel done today. Await results and treat accordingly. Advised to eat healthy and stay hydrated. Increase iron enriched foods. Reviewed when to call for any VB. Discussed to call the service here for any emergencies/deliveries to be directed to [facility]. RTO 4wk. 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 She is a pleasant 27 year old with LMP 11/04/22 and BRAEDEN 08/11/23 which correlates exactly with US on 01/16/23 at 10w3d, BRAEDEN 08/11/23 and GA today of 11w3d today. Short interval was unplanned but pt wishes to continue. Pt's son will be ~1 year old when baby #2 is born. FOB is the same for both pregnancies. He is supportive. BMI is 38.8 and early glucose has been added to labs. Pt is scheduled for OB PE 02/04/23. Jodi has some nausea but she is managing well. She is on PNV and has been prescribed Vit B6 for nausea but has not started the medication. She is also taking sucralfate and omeprazole for heartburn. She has h/o anxiety and depression, does not have a counselor but reports her boyfriend and family are very supportive. Pt does report she has a half-brother who has a trach and G- tube, nonambulatory and nonverbal but she is not sure of the reason. She will try and find out the problem. Pt also mentioned that she has had diarrhea for a few weeks. We discussed adding fiber to her diet and was advised to discuss this further at her OB PE. Pt denies abd pain or blood per rectum. Pt was given the folder. We discussed danger signs, MD availability 24/11 and how to reach the MD after hours. She is aware that she will deliver at [facility] and have ultrasounds there as well. Pt was also advised of need to transfer to a [facility] practice if her becomes high-risk. Anticipate another vaginal delivery. No complications with her first or delivery. Pt advised that labs, including early glucose have been ordered and she will have them done orion. Advised to decrease sweets and carbs night before and morning of testing. Will schedule NT US and 1st trimester screening at [facility]. Pt verbalizes understanding and agrees with plan. All of her questions were answered to the best of my ability. Coding Level of Care Code Pradeep
== END 2023-07-31 13:43 | disposition home or self-care (01) ==
LOC: HO.HWS 12:47
PROVIDERS: Visit Provider Advanced Practice Midwife
DX: Z34.90 Encounter for supervision of normal pregnancy, unspecified, unspecified trimester (principal)
CPT/HCPCS: 25942; 59426

== ENCOUNTER → 2023-07-31 12:47 | Outpatient (BNVA) | payer BC, MEDICAID, SELFPAY | PROVIDERS: Visit Provider Advanced Practice Midwife | DX: O99.213 Obesity complicating pregnancy, third trimester (principal); E66.9 Obesity, unspecified; O99.013 Anemia complicating pregnancy, third trimester; D64.9 Anemia, unspecified; Z3A.38 38 weeks gestation of pregnancy | CPT/HCPCS: 99212 ==

== ENCOUNTER 2023-09-17 11:32 | Outpatient (AMB) | payer BC, MEDICAID, SELFPAY ==
[2023-09-17 11:35] VITALS: BP 106/52; BMI 44.9
--- NOTE | 2023-09-17 11:35 | A.OFFVISPN_ITS ---
Intake Vital Signs 09/17/23 11:35 Height 5 ft Weight 230 lb BMI 44.9 BP 106/52 L Intake Visit Reasons: PP Intake Note: Feeling tenderness when getting up in lower abdomin Labor Utilization Superintendent Required: No Information Interpreted: non-clinical & clinical Life Insurance Sales Agent: Life Insurance Sales Agent Present (Yenny) Allergies amoxicillin [Amoxicillin] Allergy (Unknown, Verified 09/17/23 11:38) UNKNOWN Is last menstrual period known: No Post menopausal: Yes Patient : No PFSH Medical History (Updated 09/17/23 @ 12:55 by Inez Melgar CNM) Fatigue Cervical cancer screening Well woman exam with routine gynecological exam Adult BMI > 30 History of MRSA infection Depression with anxiety Migraine Family History Brother Tracheostomy present Feeding by G-tube Social History Household Members: Children Both parents involved: Yes Caregiver staying overnight: No Housing: House Are you a primary complex care nurse to a significant other at home: No Do you presently have visiting nurse or other home services: No 75 years or older and lives alone: No Alcohol intake: never Patient Tobacco Use Status: Never used Tobacco Special cuong needs: No Agree to transfusion: Yes service: No Current occupational status: employed 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 Date GA/Weeks Outcome Route Wt Inf Gender Labor Leena Anesthesia Location Provider Complicate 08/27/22 39 live - full term vaginal delivery 7 lb 3 oz Male none [facility] none Questionnaire History History : 2 Jefferson Depression Jefferson Depression Scale I have been able to laugh and see the funny side of things: As much as I always could I have looked forward with enjoyment to things: As much as I ever did I have blamed myself unnecessarily when things went wrong: No, never I have been anxious or worried for no reason: No, not at all I have felt scared of panicky for no very good reason at all: No, not at all Things have been getting on top of me: No, I have been coping as well as ever I have been so unhappy that I have had difficulty sleeping: No, not at all I have felt sad or miserable: No, not at all I have been so unhappy that I have been crying: No, never The thought of harming myself has occurred to me: Never 0 PHQ Assessment Billing PHQ Assessment Tool: PHQ Assessment [id number] Visit BRAEDEN Calculator Estimated Delivery Date Method Current WG Current Estimate 08/11/23 LMP (Certain) 45w 2d Other Estimates 08/11/23 Ultrasound #1 45w 2d Expected Delivery Route/Plan Specific Issues/Plans 27 yr. old G 2 P 1 EDC: 08/11/2023 Blood type: A pos Problem List: 1. Closely spaced pregnancies delivered August 2022 2. obesity 3. Anemia-does not tolerate iron. Advised iron rich foods on 02/04/2023./Hematology Oncology. Testing: Panorama/and or First Tri screen: risk NT scan: Booked 02/09/2023 AFP: FAS: Normal Glucose: early 75 28 wk glucose: 83 CBC 1st Tri: 11.1 28 wk. CBC: 9.9/31.0/239 GBS: done 07/17/23... 06/02/23 MFN scan to check fluid-- fluid within normal limits at 30 weeks. Vaccinations: Flu: informed, declined Tdap: given 07/01/23. 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-?-?-?-?-?-?-?-?-?- 04/07/23 -?-?-?-?-?-?-?-?-?-?-?-?- 22w 0d 229 lb (+9 lb) 24 150 100/60 229 lb -?-?-?-?-?-?-?-?-?-?-?-?- 05/06/23 -?-?-?-?-?-?-?-?-?-?-?-?- 26w 1d 232 lb (+12 lb) 26 150 active 104/60 232 lb -?-?-?-?-?-?-?-?-?-?-?-?- 05/19/23 -?-?-?-?-?-?-?-?-?-?-?-?- 28w 0d 233 lb (+13 lb) 28 140 active 100/60 233 lb -?-?-?-?-?-?-?-?-?-?-?-?- 06/05/23 -?-?-?-?-?-?-?-?-?-?-?-?- 30w 3d 232 lb (+12 lb) 32 140 active 110/68 232 lb -?-?-?-?-?-?-?-?-?-?-?-?- 06/19/23 -?-?-?-?-?-?-?-?-?-?-?-?- 32w 3d 240 lb (+20 lb) 36 140 active 124/60 240 lb -?-?-?-?-?-?-?-?-?-?-?-?- 07/01/23 -?-?-?-?-?-?-?-?-?-?-?-?- 34w 1d 237 lb (+17 lb) 36 150 active 104/60 237 lb -?-?-?-?-?-?-?-?-?-?-?-?- 07/17/23 -?-?-?-?-?-?-?-?-?-?-?-?- 36w 3d 240 lb (+20 lb) 38 140 active 118/66 240 lb -?-?-?-?-?-?-?-?-?-?-?-?- 07/24/23 -?-?-?-?-?-?-?-?-?-?-?-?- 37w 3d 240 lb 4.862 oz (+20 lb 4.862 oz) term 39 ?vtx 150 active absent 108/66 240 lb 4.862 oz -?-?-?-?-?-?-?-?-?-?-?-?- 07/31/23 -?-?-?-?-?--?-?-?-?-?-?-?- 38w 3d 248 lb (+28 lb) 39 vtx 150 active 108/64 248 lb -?-?-?-?-?-?-?-?-?-?-?-?- 09/17/23 -?-?-?-?-?-?-?-?-?-?-?-?- 45w 2d 230 lb (+10 lb) 106/52 230 lb -?-?-?-?-?-?-?-?-?-?-?-?- Notes Visit Date: 09/17/23 Last Updated by: Inez Melgar CNM Note author: Inez Melgar CNM. 6 weeks visit. Status post vaginal delivery no laceration repair. Taking PNV gummies, intolerant iron, Doing well with no concerns. Good appetite, stays well hydrated. Breast-feeding and pumping her milk. West is well, w/ good weight gain. Her bleeding has initially stopped. She has no interest in control and plans to use condoms when ready to be intimate with her partner. She does report at times when she is getting up from a lying down position she feels a lower abdominal muscle straining. She has not initiated any exercise and does not recall any strenuous lifting patterns. Last Pap 2021 was normal. EPDS=0. Reviewed: exercise including Kegel's, encouraged to increase her exercise activity. Consider pelvic floor therapy for strengthening call the office if she would like a referral. Continue with a healthy well balanced diet, hydrate well, 8-10 glasses of water daily, gummies, consider control due to her closely spaced 1st and 2nd. Trini mom dad, website shared. Advised to call if there is any breast-feeding or concerns. Return to the office August of 2024 for annual exam and Pap. Visit Date: 07/31/23 Last Updated by: Inez Melgar CNM Note author: Inez Melgar CNM. 38wk. RUPESH. Taking PNV, Doing well with no concerns. Good appetite, stays well hydrated. Denies any LOF, VB, abd. pain or urinary symptoms. Iron infusions x 5, next appt. 08/05/23. She reports pressure, cramping has increased. Prepped at home for her baby. Still working, has a 3 month maternity leave planned. Has backup care for her firstborn when she goes into labor. Prefer not to do control and would like to just use condoms for the time being when she is . Requests a exam-VE: 2cm/soft/70/-2-3vtx. Reviewed: Labor/LOF/Ctx's/VB, when to seek emergent care. discomforts, self help measures. FM and when to call the office for further eval. Encouraged a healthy well balanced diet, regular walking/exercise in . Hydrate well, 8-10 glasses of water daily. RTO 1wks. Visit Date: 07/24/23 Last Updated by: Marci Reis CNM Patient is here for visit at 37 weeks and 3 days. She has been feeling a lot of pressure like the baby's moving down and some cramping. No actual contractions yet. The baby is very very active heart obtained very high on patient's upper right side patient says her last baby was like that to with the heart so high up but the baby was vertex it potentially feels vertex by Severiano's but given adipose it is difficult to tell. I am going to order an ultrasound to verify vertex as patient is now 37 weeks and 3 days and if the baby was not vertex this would be the time to address that. We discussed control she says she has not interested in taking anything or having anything put in her. She said she did not want to think about it yet I did press the subject and she said they would take care of themselves and enquiring more she did say that she would use condoms reviewed that this is a perfectly acceptable method of control and it is a plan over time she might be able to augment it with more awareness of cycles but immediately is very difficult. She is group B strep positive she is penicillin allergic. Sensitivities were done and the GBS is sensitive to vancomycin and clindamycin both as well as the penicillins. She said she was group B strep positive the last time and was treated with something as well in labor. At the end of the visit the patient also shared that she was seen at urgent care yesterday and diagnosed with an ear infection that has been bothering her for couple of months and they gave her an antibiotic called cephalexin. She said she was COVID negative. She started the antibiotic this morning. I did some teaching about the symptoms of yeast infections and offered to prescribe her Monistat in case she ends up with 1 and discussed factors that can contribute to yeast infection. Prescription sent to her [facility] pharmacy for p.r.n. use. Visit Date: 07/17/23 Last Updated by: Inez Melgar CNM Note author: Inez Melgar CNM. 36.3wk. RUPESH. Taking PNV, Doing well with no concerns. Good appetite, stays well hydrated. Denies any LOF, VB, abd. pain or urinary symptoms. Good FM. GBS, GC chlamydia obtained. Note revised for work today for additional date documentation. Reviewed: PTL s/s-LOF/Ctx's/VB, when to seek emergent care. discomforts, self help measures. FMC and when to call for further evaluation. Encouraged a healthy well balanced diet, regular walking/exercise in . Hydrate well, 8-10 glasses of water daily. RTO 1wks. Visit Date: 07/01/23 Last Updated by: Inez Melgar CNM Note author: Inez Melgar CNM. 34.1wk. RUPESH. Taking PNV, Doing well with no concerns. Good appetite, stays well hydrated. Denies any LOF, VB, abd. pain or urinary symptoms. Good FM. Has not started the Pepcid. Reports right ear pain and soreness to her throat, Claritin not helping, does not have a PCP. 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 Reviewed: PTL s/s-LOF/Ctx's/VB, when to seek emergent care. discomforts, self help measures. See Urgent care for ear pain. Start Pepcid. Tdap today. Note for work per request given. Unsure of control plans. FMC and when to call for further evaluation. Encouraged a healthy well balanced diet, regular walking/exercise in . Hydrate well, 8-10 glasses of water daily. Informed GBS at n/v. RTO 2wks. Visit Date: 06/19/23 Last Updated by: Marci Reis CNM Patient is here at 32 weeks and 3 days for her visit done at the [facility]. She was not able to tolerate iron so has been seeing Hematology and getting iron transfusions she is gotten 2 so far she has not sure she has feeling a difference yet. Baby is active. She had an ultrasound at [facility] on June 02 to check for fluid as there was a history of oligohydramnios with her previous . Fluid was deemed to be within normal limits. There is jumping fundal height today but it feels to be all adipose. Reviewed her plans for control. This was closely spaced after the other 1 in her other baby is 9-month-old. She is completely undecided about control and has not thought about it yet. We reviewed every method commonly used including condoms pills patches rings Depo-Provera Nexplanon and IUDs with and without hormones. She is disinclined to choose an IUD because her cousin has cramping with it however she had reasons why she would not be able to use every other method as well including remembering to take pills wanting to breastfeed and concern about weight gain with various methods. She tends to get very crampy periods. I recommend she consider and do more research about the Mirena IU S as it may be the more reliable method for her and she has ruled out in her mind every other method as well. To continue the discussions. Discussed that sometimes the Mirena maybe offered at [facility] after delivery but otherwise we would want to place it after does complete involution of the uterus after 8 weeks RTC 2 weeks. May be seen at either office, vaccinations would occur at the [facility] office. Visit Date: 06/05/23 Last Updated by: Inez Melgar CNM Note author: Inez Melgar CNM. 30.3wk. RUPESH. Taking PNV, Doing well with no concerns. Good appetite, stays well hydrated. Denies any LOF, VB, abd. pain or urinary symptoms. Good FM. Has an iron infusion next week. She reports heartburn, taking Tums not completely effective though. Reviewed: PTL s/s-LOF/Ctx's/VB, when to seek emergent care. discomforts, self help measures. FMC and when to call for further evaluation. Encouraged a healthy well balanced diet, regular walking/exercise in . Hydrate well, 8-10 glasses of water daily. RTO 2wks. Visit Date: 05/19/23 Last Updated by: Inez Melgar CNM Note author: Inez Melgar CNM. 28wk. RUPESH. Taking PNV, Doing well with concerns: had a few episodes of feeling lightheaded, a wave of heat and felt a numbing sensation, while sitting and standing. Denies any chest pain, shortness breath, dizziness, heart palpitations. Denies any dehydration. History of anemia has not started her iron yet due to concerns of GI effects from her last . Good appetite. Denies any LOF, VB, abd. pain or urinary symptoms. Good FM. History of oligohydramnios with her last . Twenty-eight week labs reviewed. BS-83, Hgb. 9.8 Reviewed: Anemia, oral iron verses iron infusion. Ref: Heme/Onc for iron infusion. PTL s/s-LOF/Ctx's/VB, when to seek emergent care. discomforts, self help measures. FMC and when to call for further evaluation. Encouraged a healthy well balanced diet, regular walking/exercise in . Hydrate well, 8-10 glasses of water daily. Ultrasound for fluid check. RTO 2wks. Visit Date: 05/06/23 Last Updated by: Inez Melgar CNM Note author: Inez Melgar CNM. 26.1wk. RUPESH. Taking PNV, Doing well with no concerns. Good appetite w/iron enriched foods, stays well hydrated. Denies any LOF, VB, abd. pain or urinary symptoms. Good FM. She reports small amt. of blood from anus with wiping, had the same during her last . Denies any constipation, reports more frequency of soft/watery stools. Denies hemorrhoids, she defers exam until her next visit. Reviewed: PTL s/s-LOF/Ctx's/VB, rectal bleeding increase, when to seek emergent care. Referral to GI sent. discomforts, self help measures. FMC and when to call for further evaluation. Encouraged a healthy well balanced diet, regular walking/exercise in . Hydrate well, 8-10 glasses of water daily. Glucose testing in the next 2 wks Note for work per pt. request of lifting limits provided. RTO 2wks. Visit Date: 04/07/23 Last Updated by: Inez Melgar CNM Note author: Inez Melgar CNM. 22wk. RUPESH. Taking PNV, Doing well with no concerns. Good appetite, stays well hydrated. Denies any LOF, VB, abd. pain, or urinary symptoms. She completed the FAS sent reports she is having a baby girl. Counseled regard regarding flu vaccine patient declined. Reviewed: PTL s/s-LOF/Ctx's/VB, when to seek emergent care. discomforts, self help measures. FM and when to call the office for further eval. Encouraged a healthy well balanced diet, regular walking/exercise in . Hydrate well, 8-10 glasses of water daily. RTO 4wks. Plan glucose between 26 and 28 week. Visit Date: 03/10/23 Last Updated by: Yoel Bhat MD Presenting for visit with no complaints, no cramping, leakage of fluid or bleeding. The the patient is starting to feel movements. On vitamin A/P: 18 week of gestation Discussed with the patient options for chromosomal abnormality screening versus counseling. Options discussed with the patient's include but not limited to: Cell free DNA, 1st trimester combined screening, quad screen, integrated, serum integrated, sequential stepwise, contingent screening, nuchal translucency alone , anomaly scan, in addition to invasive diagnostic test. The approximate gestational age range for screening, detection rate for chromosomal abnormalities, screen positive rate, advantages, disadvantages and limitations associated with each test/approach were discussed with the patient . The availability of invasive diagnostic tests were reviewed with the patient and their sensitivity in addition to the associated risk of miscarriage were discussed with the patient. The differences between screening tests and diagnostic tests were explained to the patient . After our discussion, the patient declined invasive genetic testing and opted to stay with the First trimester screening that is based on cell-free DNA or non-invasive testing (NIPT) which was already done and negative. Discussed with the patient the results of her first-trimester screen being low risk for trisomy 21, 13 and 18, explained to the patient that this test does not screen for open neural tube defects and recommendation is to measure ma ternal serum alpha fetoprotein in the 2nd trimester optimally between 16-18 week in addition to a anomaly screen to screen for neural tube defect. Quadruple screen ordered and anomalies scan is in the process of being scheduled based Instructions given the patient to call in case of cramping and or bleeding, follow-up in 4 weeks Visit Date: 02/04/23 Last Updated by: Inez Melgar CNM OB Note author: Inez Melgar CNM/Jada Adiel medical insurance collector 13.1 wk. PNV. Good FM, no LOF or VB. Reports taking PNV gummies without iron. Has concerns of '' bubbles '' on her back/flank that come and go, not present today. Discussed: Advised to do Glucose testing on Thursday her day off, same day as the NT is booked. Monitor rash and if become more bothersome contact office: referral to Track Laborer or see PCP when rash is present. BV testing and GC/CT panel done today. Await results and treat accordingly. Advised to eat healthy and stay hydrated. Increase iron enriched foods. Reviewed when to call for any VB. Discussed to call the service here for any emergencies/deliveries to be directed to [facility]. RTO 4wk. 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 She is a pleasant 27 year old with LMP 11/04/22 and BRAEDEN 08/11/23 which correlates exactly with US on 01/16/23 at 10w3d, BRAEDEN 08/11/23 and GA today of 11w3d today. Short interval was unplanned but pt wishes to continue. Pt's son will be ~1 year old when baby #2 is born. FOB is the same for both pregnancies. He is supportive. BMI is 38.8 and early glucose has been added to labs. Pt is scheduled for OB PE 02/04/23. Jodi has some nausea but she is managing well. She is on PNV and has been prescribed Vit B6 for nausea but has not started the medication. She is also taking sucralfate and omeprazole for heartburn. She has h/o anxiety and depression, does not have a counselor but reports her boyfriend and family are very supportive. Pt does report she has a half-brother who has a trach and G- tube, nonambulatory and nonverbal but she is not sure of the reason. She will try and find out the problem. Pt also mentioned that she has had diarrhea for a few weeks. We discussed adding fiber to her diet and was advised to discuss this further at her OB PE. Pt denies abd pain or blood per rectum. Pt was given the folder. We discussed danger signs, MD availability 24/11 and how to reach the MD after hours. She is aware that she will deliver at [facility] and have ultrasounds there as well. Pt was also advised of need to transfer to a [facility] practice if her becomes high-risk. Anticipate another vaginal delivery. No complications with her first or delivery. Pt advised that labs, including early glucose have been ordered and she will have them done orion. Advised to decrease sweets and carbs night before and morning of testing. Will schedule NT US and 1st trimester screening at [facility]. Pt verbalizes understanding and agrees with plan. All of her questions were answered to the best of my ability. Review of Systems Const All systems reviewed & are unremarkable except as noted in HPI and below Reports as per HPI Eyes Reports no additional complaints ENT Reports no additional complaints Card Reports no additional complaints Resp Reports no additional complaints GI Reports as per HPI and Reports no additional complaints Reports as per HPI Musc Reports no additional complaints Skin/Breast Reports as per HPI Neuro Reports no additional complaints Psych Reports no additional complaints Endo Reports no additional complaints Justin/Lymph Reports no additional complaints Aller/Immun Reports no additional complaints Exam Const Constitutional General: cooperative, healthy appearing, no acute distress, well developed and alert Orientation/consciousness: patient oriented x3 HENMT Head: normal to inspection Eyes General: appearance normal, both eyes and all related structures Neck Neck: normal visual inspection Thyroid: Thyroid normal Chest Chest palpation & inspection: normal inspection of the chest and other (no puckering, dimpling, peau de orange, retraction, discharge, masses) Breast/axilla inspection: normal inspection of the breasts Breast/axilla palpation: normal palpation of the breasts Resp Effort & Inspection: normal respiratory effort GI Inspection (GI): normal to inspection Palpation (GI): Soft to palpation General Exam: Yes bladder normal to palpation External Female Exam: normal external appearance and normal appearance of the urethra Urethra: normal appearance of the urethra Speculum exam - vagina: normal appearance of the vagina and normal discharge Speculum Exam - Cervix: normal appearance of the cervix Bimanual exam- vagina & uterus: normal bimanual exam, normal palpation, uterine size normal, bladder normal to palpation, normal palpation and non-tender Bimanual Exam- Adnexa, other: no masses Pelvic Support: other (Minimal tone) Skin General skin exam: no rashes or lesions noted Rashes: no rashes Neuro Cognition (Neuro): normal cognition Extrem General: normal to inspection Psych Attitude: cooperative Thought process: Normal thought process present Coding Level of Care Code Bruner Diagnoses exam Z39.2 Lactating mother Z39.1 Assessment & Plan Assessment & Plan (1) exam: Code(s): Z39.2 - Encounter for routine follow-up Plan: See notes for plan of care. (2) Lactating mother: Code(s): Z39.1 - Encounter for care and examination of lactating mother Category: Medical Plan: See notes.
== END 2023-09-17 12:12 | disposition home or self-care (01) ==
LOC: HO.HWS 11:32
PROVIDERS: Visit Provider Advanced Practice Midwife
DX: Z39.2 Encounter for routine postpartum follow-up (principal)
CPT/HCPCS: 59430; S3005

== ENCOUNTER → 2023-09-17 11:32 | Outpatient (BNVA) | payer BC, MEDICAID, SELFPAY | PROVIDERS: Visit Provider Advanced Practice Midwife ==

== ENCOUNTER 2024-02-07 17:43 | Emergency (ER) | payer BC, MEDICAID, SELFPAY ==
--- NOTE | ~2024-02-07 | XR_ITS ---
EXAMINATION: XR CHEST CLINICAL INFORMATION: Chest pain COMPARISON: None available. TECHNIQUE: 2 views of the chest were obtained. FINDINGS: No significant abnormality is noted involving the heart, lungs, mediastinum, bony thorax or soft tissues. XR/XR chest 2V IMPRESSION: Unremarkable examination. Electronically signed by: Elmo Back MD 02/07/2024 07:34 PM EDT RP
[2024-02-07 17:53] VITALS: BP 127/76; PULSE 81; RESP 19; TEMP 36.6; O2SAT 98; BMI 37.1
--- NOTE | 2024-02-07 17:53 | ED_ITS ---
HPI - General Adult General Chief complaint: General Medical Stated complaint: throat pain, migraine Time Seen by Provider: 02/07/24 20:28 Source: patient Mode of arrival: ambulatory Limitations: no limitations History of Present Illness ED Provider: Angelica Zamarripa PA-C HPI narrative: Patient is a 28 year old assigned female at with a medical history of migraines and anxiety presenting to the emergency department today with a sore throat, migraine, and chest tightness. Patient states that over the last few days she has felt generally unwell with a sore throat, migraine, and chest tightness. Patient denies any dizziness, lightheadedness, abdominal pain, nausea, vomiting, fever, chills, blurry vision, double vision, loss of vision, difficulty breathing, shortness of breath, back pain, night sweats, pain with urination, increased urinary frequency, increased urinary urgency, blood in her urine or stool, syncope or a near syncopal episode, recent trauma or falls, bowel incontinence, bladder incontinence, or any other complaints at this time. Onset (ago): day(s) Relieving factors: none Exacerbating factors: none Associated symptoms: chest pain and headaches Treatments prior to arrival: none Related Data Home Medications ?Medication ?Instructions ?Recorded ?Confirmed No Known Home Meds 09/17/23 09/17/23 Allergies Allergy/AdvReac Type Severity Reaction Status Date / Time amoxicillin [Amoxicillin] Allergy Unknown UNKNOWN Verified 02/07/24 17:55 Review of Systems 2 Constitutional: Constitutional: Reports no additional constitutional complaints, Denies chills, Denies fever(s), Reports headache(s) and Denies night sweats Eyes: Eyes: Reports no additional eye complaints, Denies blurry vision, Denies change in vision, Denies diplopia, Denies eye discharge, Denies loss of vision and Denies eye pain ENT: Denies dizziness, Reports headache(s) and Reports sore throat Cardiovascular: Cardiovascular: Reports no additional cardiovascular complaints, Reports chest pain, Denies lightheadedness, Denies Loss of Consciousness and Denies dyspnea Respiratory: Respiratory: Reports no additional respiratory complaints and Denies dyspnea Gastrointestinal: Gastrointestinal: Reports no additional gastrointestinal complaints, Denies abdominal pain, Denies melena, Denies hematochezia, Denies change in bowel habits and Denies change in stool character Genitourinary: Genitourinary: Denies hematuria, Denies urinary frequency, Denies dysuria, Denies urinary incontinence, Denies urinary hesitancy and Denies urinary urgency Musculoskeletal: Musculoskeletal: Reports no additional musculoskeletal complaints, Denies numbness and Denies tingling Neurologic: Denies dizziness, Reports headache(s), Denies loss of vision, Denies numbness and Denies tingling Psychiatric: Psychiatric: Reports no additional psychiatric complaints Endocrine: Endocrine: Reports no additional endocrine complaints Hematologic/Lymphatic: Hematologic/Lymphatic: Reports no additional hematologic/lymphatic complaints Allergic/Immunologic: Allergic/Immunologic: Reports no additional allergic/immunologic complaints [facility] Past Medical History Attestation statement: The following information was validated with the patient. Source: old records reviewed and nursing notes reviewed Medical History Fatigue Cervical cancer screening Well woman exam with routine gynecological exam Adult BMI > 30 History of MRSA infection Depression with anxiety Migraine Family History Family History Brother Tracheostomy present Feeding by G-tube Social History Social History Household Members: Children Housing: House Are you a primary team primary care physician to a significant other at home: No Do you presently have visiting nurse or other home services: No Alcohol intake: never Patient Tobacco Use Status: Never used Tobacco Special cuong needs: No Agree to transfusion: Yes Advance Directives: No Advance Directives Information Provided: No Do you have a plan to hurt others: No Plan service: No Current occupational status: employed 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 Gender identity: Female Physical Exam ED Vital Signs: Vital Signs - 24 hr 02/07/24 17:53 Temperature 98 F Pulse Rate 81 Respiratory Rate 19 Blood Pressure 127/76 Pulse Oximetry 98 Oxygen Delivery Method Room Air BMI result Body Mass Index 37.1 Const General: cooperative, no acute distress, alert and awake Nutritional Appearance: well nourished Orientation/consciousness: patient oriented x3 Limitations: no limitations HENMT Head: Yes normal to inspection and Yes atraumatic Ears: hearing grossly normal bilaterally and external ears normal General nose exam: Normal external nose present, no nasal discharge noted and no epistaxis Face and sinus: Yes normal facial exam, No abrasion and No laceration Mouth: Normal oral and palatal mucosa present, no drooling and no muffled voice Eyes General: appearance normal, both eyes and all related structures Periorbital: periorbital findings normal Eyelids: Yes eyelids normal Conjunctivae: conjunctivae normal Pupils: Equal, round and reactive pupils present EOM: EOMs intact bilaterally Neck Neck: Yes normal visual inspection, Yes full ROM and Yes no lymphadenopathy Chest Chest palpation & inspection: normal inspection of the chest Resp Effort & Inspection: normal respiratory effort and able to speak in complete sentences GI Inspection: Yes normal to inspection Neuro General: patient oriented x3 and moves all extremities Cranial nerves: Yes Equal, round and reactive pupils present Cognition (Neuro): normal cognition Extrem General: Yes normal to inspection, Yes full ROM and Yes capillary refill normal Psych Appearance: grossly normal Mental Status: mental status grossly normal Affect: normal affect Attitude: cooperative Thought process: Normal thought process present Thought content: Normal thought content present Insight: Good insight present (Psych) Course Course Course Narrative: RME performed by Angelica Zamarripa PA-C. Patient is a 28 year old assigned female at presenting to the emergency department with a sore throat, headache, and chest pressure. Patient states over the last 2 days she has had chest pressure, a sore throat, and migraine. Detailed physical exam and review of systems are deferred to the compliance representative dealer. EKG, labs, imaging, and swabs ordered. Patient placed back in the waiting room pending room availability and results. Medical Decision Making Medical Decision Making MDM Narrative: Patient is a 28 year old assigned female at with a history of migraines and anxiety presenting to the emergency department today with a sore throat, migraine, and chest pain. Patient's physical exam was unremarkable. Patient's blood work was unremarkable. Patient's EKG was unremarkable. Patient's chest x- ray showed no acute process. Patient's COVID-19 test was positive. I explained my physical exam findings as well as all test results to the patient. I answered all questions asked by the patient. I stressed the importance of the patient taking her medication as directed (either prescribed or as the over the counter packaging recommends). I stressed the importance of the patient following up with her primary care provider. I stressed the importance of the patient returning to the emergency department immediately if her symptoms were to worsen or if she were to develop any dizziness, shortness of breath, difficulty breathing, chest pain, blurry vision, loss of vision, nausea, vomiting, abdominal pain, fever, chills, back pain, or any other complaints. Patient verbalized agreement and understanding with this treatment plan and discharge. Differential Diagnosis Differential Diagnoses: The differential diagnosis associated with the presentation includes COVID-19 Cough URI PNA Admission/Observation Consideration of admission/observation: Escalation of care including admission/observation considered Patient would have been admitted to the hospital had her work up had any findings where hospital admission was appropriate and her clinical presentation warranted hospital admission. Lab Data [facility] Lab Attestation statement: I reviewed the patient's lab results. My interpretation of these results are in the [facility] Rationale portion of this note. 02/07/24 18:12 02/07/24 18:12 Labs: Lab Results 02/07/24 Range/Units 18:12 WBC 7.5 (4.8-10.8) X10*3/uL RBC 4.24 (4.20-5.50) X10*6/uL Hgb 12.8 (12.0-16.0) g/dl Hct 37.9 (37.0-47.0) % MCV 89.4 (80.0-98.0) fL MCH 30.2 (27.0-33.0) pg MCHC 33.8 (31.0-35.0) g/dl RDW 13.5 (11.0-16.0) % Plt Count 283 D (160-400) X10*3/uL MPV 11.1 (9.4-12.3) fL Immature Gran % (Auto) 0.1 (0.0-0.4) % Neut % (Auto) 50.5 (45-73) % Lymph % (Auto) 39.2 (20-40) % [place] % (Auto) 6.7 (2-11) % Eos % (Auto) 1.9 (0-4) % Baso % (Auto) 1.6 (0-2) % Lymph # (Auto) 2.9 (1.2-4.9) X10*3/uL [place] # (Auto) 0.5 (0.1-1.2) X10*3/uL Eos # (Auto) 0.1 (0.0-0.4) X10*3/uL Baso # (Auto) 0.1 (0.0-0.2) X10*3/uL Abs Immat Gran (auto) 0.01 (0.00-0.03) X10*3/uL Absolute Neuts (auto) 3.8 (2.0-8.3) x10*3/uL Absolute Nucleated RBC 0.000 (0.0-0.012) X10*3/uL Nucleated RBC % (auto) 0.0 (0.0-0.2) /100WBC Sodium 141 (135-145) mmol/L Potassium 4.1 (3.3-5.1) mmol/L Chloride 107 (96-108) mmol/L Carbon Dioxide 27 (22-29) mmol/L Anion Gap 11 L (12-20) BUN 13 (9-16) mg/dL Creatinine 0.74 (0.5-1.4) mg/dL Estim Creat Clear Calc 130.9 Estimated GFR > 60 Random Glucose 90 (60-115) mg/dL Calcium 9.8 (8.4-10.2) mg/dL Magnesium 2.0 (1.6-2.6) mg/dL Total Bilirubin 0.4 (0.0-1.0) mg/dL AST 16 (5-31) U/L ALT 12 (0-31) U/L Alkaline Phosphatase 74 (39-117) U/L Troponin I High Sens < 2.7 (<3.5-17.0) ng/L Total Protein 7.8 (6.5-8.0) g/dL Albumin 4.5 (3.5-5.0) g/dL Influenza Type A (PCR) NEGATIVE (Negative) Influenza Type B (PCR) NEGATIVE (Negative) RSV RNA Qual (PCR) NEGATIVE (Negative) SARS-CoV-2 RNA (RT-PCR) POSITIVE A (Negative) S. pyogenes GrpA ELMER Negative (Negative) Independent Interpretation I performed an independent interpretation of an: EKG and Plain X-Ray Interpretation: My interpretation is in agreement with the radiologist's impression of this imaging study. L EXAMINATION: XR CHEST CLINICAL INFORMATION: Chest pain COMPARISON: None available. TECHNIQUE: 2 views of the chest were obtained. FINDINGS: No significant abnormality is noted involving the heart, lungs, mediastinum, bony thorax or soft tissues. XR/XR chest 2V IMPRESSION: Unremarkable examination. Electronically signed by: Elmo Back MD 02/07/2024 07:34 PM EDT RP Dictated By: Elmo Back MD Signed By: Electronically signed by Elmo Back MD 02/07/241933 Vent. Rate: 069 BPM Atrial Rate: 069 BPM P-R Int: 132 ms QRS Dur: 072 ms QT Int: 368 ms P-R-T Axes: 053 072 021 degrees QTc Int: 394 ms Normal sinus rhythm with sinus arrhythmia Cannot rule out Anterior infarct , age undetermined When compared with ECG of 14-JAN-2023 15:10, Nonspecific T wave abnormality no longer evident in Anterior leads T wave inversion no longer evident in Inferior leads Referred By: Angelica Zamarripa Electronically Signed By:JUD CARMENCP Dictated By: Jud Dover DO Signed By: Electronically signed by Jud Dover DO 02/08/24 1207 Radiology Impression Discussion of test interpretation with radiology: I have reviewed the radiologist's reading. Discharge Plan Discharge Clinical Impression: COVID-19 Patient Disposition: Home, Self-Care Instructions: COVID-19 (Coronavirus Disease 2019) (ED) Additional Instructions: Follow up with your primary care provider. Return to the emergency department immediately if your symptoms worsen or if you develop any dizziness, shortness of breath, difficulty breathing, chest pain, blurry vision, loss of vision, nausea, vomiting, abdominal pain, fever, chills, back pain, or any other complaints. Prescriptions: No Action No Known Home Meds Referrals: [facility] [[place] [facility]] (Call to establish and follow up with a primary care provider. If you already have a primary care provider, please follow up with them.) [facility] [[facility]] (Call to establish and follow up with a primary care provider. If you already have a primary care provider, please follow up with them.) [facility] [Provider Group] (Call to establish and follow up with a primary care provider. If you already have a primary care provider, please follow up with them.) Stand Alone Forms: Work/School Release Interventions: ED Discharge Assessment Last Done: 02/07/24 20:49 Discharge Date/Time: 02/07/24 20:55 Print Language: German
--- NOTE | 2024-02-07 17:54 | ECG_ITS ---
Test Reason : CHEST PAIN Blood Pressure : / mmHG Vent. Rate : 069 BPM Atrial Rate : 069 BPM P-R Int : 132 ms QRS Dur : 072 ms QT Int : 368 ms P-R-T Axes : 053 072 021 degrees QTc Int : 394 ms Normal sinus rhythm with sinus arrhythmia Cannot rule out Anterior infarct , age undetermined Abnormal ECG When compared with ECG of 14-JAN-2023 15:10, Nonspecific T wave abnormality no longer evident in Anterior leads T wave inversion no longer evident in Inferior leads Referred By: Angelica Zamarripa Electronically Signed By:JUD FERRERA
[2024-02-07 18:19] LABS: MANUAL DIFF FLAG NO
[2024-02-07 18:27] LABS: IDNOW Serial# 08D9AD1C; Strep A Nucleic Acid Negative (Negative)
[2024-02-07 18:30] LABS: Basophils Absolute Auto 0.1 X10*3/uL (0.0-0.2); Basophils Percent Auto 1.6 % (0-2); Eosinophils Absolute Auto 0.1 X10*3/uL (0.0-0.4); Eosinophils Percent Auto 1.9 % (0-4); Hematocrit 37.9 % (37.0-47.0); Hemoglobin 12.8 g/dl (12.0-16.0); Imm Gran Abs Auto 0.01 X10*3/uL (0.00-0.03); Imm Gran Pct Auto 0.1 % (0.0-0.4); Lymphocytes Absolute Auto 2.9 X10*3/uL (1.2-4.9); Lymphocytes Percent Auto 39.2 % (20-40); Mean Corpuscular HGB Conc 33.8 g/dl (31.0-35.0); Mean Corpuscular Hemoglobin 30.2 pg (27.0-33.0); Mean Corpuscular Volume 89.4 fL (80.0-98.0); Mean Platelet Volume 11.1 fL (9.4-12.3); Monocytes Absolute Auto 0.5 X10*3/uL (0.1-1.2); Monocytes Percent Auto 6.7 % (2-11); Neutrophils Absolute Auto 3.8 x10*3/uL (2.0-8.3); Neutrophils Percent Auto 50.5 % (45-73); Platelet Count 283 X10*3/uL (160-400); Red Blood Count 4.24 X10*6/uL (4.20-5.50); Red Cell Distribution Width 13.5 % (11.0-16.0); White Blood Count 7.5 X10*3/uL (4.8-10.8)
[2024-02-07 18:38] LABS: Alanine Aminotransferase 12 U/L (0-31); Albumin Level 4.5 g/dL (3.5-5.0); Alkaline Phosphatase 74 U/L (39-117); Anion Gap 11 (12-20); Aspartate Amino Transferase 16 U/L (5-31); Bilirubin Total 0.4 mg/dL (0.0-1.0); Blood Urea Nitrogen 13 mg/dL (9-16); Calcium 9.8 mg/dL (8.4-10.2); Carbon Dioxide 27 mmol/L (22-29); Chloride 107 mmol/L (96-108); Creatinine Clr Calc Pharmacy 130.9; Estimated Glomerular Filt Rate > 60; Glucose Random 90 mg/dL (60-115); Potassium 4.1 mmol/L (3.3-5.1); Sodium 141 mmol/L (135-145); Total Protein 7.8 g/dL (6.5-8.0)
[2024-02-07 18:47] LABS: Troponin-I High Sensitivity < 2.7 ng/L (<3.5-17.0)
[2024-02-07 18:57] LABS: Influenza A PCR NEGATIVE (Negative); Influenza B PCR NEGATIVE (Negative); Resp Syncy Virus RNA Qual PCR NEGATIVE (Negative); SARS COV2 PCR INHOUSE POSITIVE (Negative)
[2024-02-07 20:49] VITALS: BP 121/72; PULSE 86; RESP 18; TEMP 36.8; O2SAT 98
== END 2024-02-07 20:55 | disposition home or self-care (01) ==
LOC: HO.ED 20:48
PROVIDERS: Physician Assistant Medical; Emergency Provider Internal Medicine
DX: U07.1 COVID-19 (principal); R07.0 Pain in throat; G43.909 Migraine, unspecified, not intractable, without status migrainosus; R07.89 Other chest pain; Z79.899 Other long term (current) drug therapy
CPT/HCPCS: 0241U; 71046; 80053; 83735; 84484; 85025; 87651; 93005; 99283

== ENCOUNTER 2024-06-12 09:05 | Emergency (ER) | payer BC, MEDICAID, SELFPAY ==
--- NOTE | 2024-06-12 | ECG_ITS ---
Test Reason : MIGRAINE Blood Pressure : */* mmHG Vent. Rate : 75 BPM Atrial Rate : 75 BPM P-R Int : 150 ms QRS Dur : 78 ms QT Int : 380 ms P-R-T Axes : 52 74 11 degrees QTcB Int : 424 ms Normal sinus rhythm with sinus arrhythmia Nonspecific T wave abnormality Abnormal ECG When compared with ECG of 07-Feb-2024 18:01, No significant change was found Referred By: Generic ED Physician Electronically Signed By: THUAN SANDERS MD
--- NOTE | ~2024-06-12 | CT_ITS ---
CLINICAL HISTORY: headache CT head without contrast. Comparison: None Findings: No acute intracranial hemorrhage, edema, mass effect or extra-axial collection. No acute alteration in the alexandre-white matter interface. Ventricles and sulci age-appropriate. No hydrocephalus. Pituitary, parasellar, hypothalamic and pineal regions are unremarkable. Posterior fossa structures intact. No Chiari malformation. Skull intact. Included paranasal sinuses and mastoids clear. Globes and orbits intact. IMPRESSION: No acute intracranial process. This document has been electronically signed by: Wesley Lerner MD on 06/12/2024 12:23:33
[2024-06-12 09:12] VITALS: BP 123/72; PULSE 78; RESP 18; TEMP 36.6; O2SAT 100; BMI 37.1
[2024-06-12] MEDS: Ondansetron ODT 4 MG TAB.RAPDIS TRANSLINGU (09:23)
[2024-06-12 09:37] LABS: MANUAL DIFF FLAG NO
[2024-06-12 09:58] LABS: Alanine Aminotransferase 16 U/L (0-31); Albumin Level 4.4 g/dL (3.5-5.0); Alkaline Phosphatase 62 U/L (39-117); Anion Gap 14 (12-20); Aspartate Amino Transferase 18 U/L (5-31); Bilirubin Total 0.6 mg/dL (0.0-1.0); Blood Urea Nitrogen 17 mg/dL (9-16); Calcium 9.3 mg/dL (8.4-10.2); Carbon Dioxide 23 mmol/L (22-29); Chloride 108 mmol/L (96-108); Creatinine Clr Calc Pharmacy 136.5; Estimated Glomerular Filt Rate > 60; Glucose Random 100 mg/dL (60-115); Magnesium 1.9 mg/dL (1.6-2.6); Potassium 3.9 mmol/L (3.3-5.1); Sodium 141 mmol/L (135-145); Total Protein 8.3 g/dL (6.5-8.0)
[2024-06-12 10:00] LABS: Basophils Absolute Auto 0.1 X10*3/uL (0.0-0.2); Basophils Percent Auto 1.3 % (0-2); Eosinophils Absolute Auto 0.1 X10*3/uL (0.0-0.4); Eosinophils Percent Auto 1.3 % (0-4); Hematocrit 39.9 % (37.0-47.0); Hemoglobin 13.1 g/dl (12.0-16.0); Imm Gran Abs Auto 0.03 X10*3/uL (0.00-0.03); Imm Gran Pct Auto 0.4 % (0.0-0.4); Lymphocytes Absolute Auto 2.8 X10*3/uL (1.2-4.9); Lymphocytes Percent Auto 33.8 % (20-40); Mean Corpuscular HGB Conc 32.8 g/dl (31.0-35.0); Mean Corpuscular Hemoglobin 29.3 pg (27.0-33.0); Mean Corpuscular Volume 89.3 fL (80.0-98.0); Mean Platelet Volume 11.1 fL (9.4-12.3); Monocytes Absolute Auto 0.6 X10*3/uL (0.1-1.2); Monocytes Percent Auto 6.8 % (2-11); Neutrophils Absolute Auto 4.7 x10*3/uL (2.0-8.3); Neutrophils Percent Auto 56.4 % (45-73); Platelet Count 325 X10*3/uL (160-400); Red Blood Count 4.47 X10*6/uL (4.20-5.50); Red Cell Distribution Width 13.7 % (11.0-16.0); White Blood Count 8.4 X10*3/uL (4.8-10.8)
[2024-06-12 10:01] LABS: MANUAL DIFF FLAG NO
[2024-06-12 10:04] LABS: Basophils Absolute Auto 0.1 X10*3/uL (0.0-0.2); Basophils Percent Auto 0.9 % (0-2); Eosinophils Absolute Auto 0.1 X10*3/uL (0.0-0.4); Eosinophils Percent Auto 0.7 % (0-4); Hematocrit 39.1 % (37.0-47.0); Hemoglobin 12.9 g/dl (12.0-16.0); Imm Gran Abs Auto 0.03 X10*3/uL (0.00-0.03); Imm Gran Pct Auto 0.3 % (0.0-0.4); Lymphocytes Absolute Auto 2.4 X10*3/uL (1.2-4.9); Lymphocytes Percent Auto 25.8 % (20-40); Mean Corpuscular Hemoglobin 29.2 pg (27.0-33.0); Mean Corpuscular Volume 88.5 fL (80.0-98.0); Mean Platelet Volume 10.8 fL (9.4-12.3); Monocytes Absolute Auto 0.5 X10*3/uL (0.1-1.2); Monocytes Percent Auto 5.4 % (2-11); Neutrophils Absolute Auto 6.1 x10*3/uL (2.0-8.3); Neutrophils Percent Auto 66.9 % (45-73); Platelet Count 304 X10*3/uL (160-400); Red Blood Count 4.42 X10*6/uL (4.20-5.50); Red Cell Distribution Width 13.7 % (11.0-16.0); White Blood Count 9.1 X10*3/uL (4.8-10.8)
[2024-06-12 10:08] LABS: HCG Quantitative < 2 mIU/mL
[2024-06-12 10:15] LABS: Influenza A PCR NEGATIVE (Negative); Influenza B PCR NEGATIVE (Negative); Resp Syncy Virus RNA Qual PCR NEGATIVE (Negative); SARS COV2 PCR INHOUSE NEGATIVE (Negative)
--- NOTE | 2024-06-12 10:37 | ED.GENADULT ---
HPI - General Adult General Chief complaint: Headache Stated complaint: dizzy Time Seen by Provider: 06/12/24 10:20 Source: patient Mode of arrival: ambulatory Limitations: no limitations History of Present Illness ED Provider: Dontae Moore HPI narrative: 28-year-old female history of migraines presents to ED for migraine exacerbation. Patient states her migraine symptoms consist of ocular migraine, photophobia, nausea, and dizziness described as the room spinning. Patient states having these symptoms for week. Patient has history of chronic migraines that is not follow-up with a neurologist in years and also has not had a primary care provider for years. Patient states she has not been on a migraine med regimen for more than 3 years. Patient states only taking Excedrin when she had migraines. Patient denies any slurred, speech facial droop, loss of vision,or paralysis of extremities. Patient presently denies any pain behind her eye but states having headache nausea vomiting and dizziness. Patient denies any red eye redness, loss of vision, change in vision,paralysis of extremites, or dizziness Related Data Previous Rx's ?Medication ?Instructions ?Recorded qmgzueqira-yjhullbmnpzsk-mzajaazb 1 cap PO Q6H PRN pain 5 days #20 06/12/24 50 mg-300 mg-40 mg capsule caps (Fioricet) ketorolac 10 mg tablet 10 mg PO Q6H PRN pain #20 tabs 06/12/24 Allergies Allergy/AdvReac Type Severity Reaction Status Date / Time amoxicillin [Amoxicillin] Allergy Unknown UNKNOWN Verified 06/12/24 09:18 Review of Systems Review of Systems: headache, nuasea, vomtiting, and dizziness Yes all other systems are reviewed and are negative [facility] Past Medical History Medical History Fatigue Cervical cancer screening Well woman exam with routine gynecological exam Adult BMI > 30 History of MRSA infection Depression with anxiety Migraine Family History Family History Brother Tracheostomy present Feeding by G-tube Social History Social History Household Members: Children Both parents involved: Yes Caregiver staying overnight: No Housing: House Are you a primary career services assistant to a significant other at home: No Do you presently have visiting nurse or other home services: No 75 years or older and lives alone: No Alcohol intake: never Patient Tobacco Use Status: Never used Tobacco Special cuong needs: No Agree to transfusion: Yes service: No Current occupational status: employed 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 Gender identity: Female Physical Exam ED Vital Signs: Vital Signs - 24 hr 06/12/24 09:12 06/12/24 10:48 06/12/24 11:13 Temperature 97.8 F 98.8 F Pulse Rate 78 61 60 Respiratory Rate 18 14 Blood Pressure 123/72 93/45 L 111/62 Pulse Oximetry 100 99 Oxygen Delivery Method Room Air Room Air 06/12/24 11:13 06/12/24 11:13 06/12/24 12:41 Temperature 98.2 F Pulse Rate 63 77 65 Respiratory Rate 14 Blood Pressure 119/71 113/74 112/66 Pulse Oximetry 99 Oxygen Delivery Method Room Air 06/12/24 13:58 Temperature 98.2 F Pulse Rate 65 Respiratory Rate 14 Blood Pressure 112/66 Pulse Oximetry 99 Oxygen Delivery Method Room Air BMI result Body Mass Index 37.1 Const General: cooperative, healthy appearing, comfortable, no acute distress, well developed, alert, awake and Physically active Orientation/consciousness: patient oriented x3 HENMT Head: Yes normal to inspection, Yes No palpable skull fracture present, Yes normocephalic and Yes atraumatic Ears: hearing grossly normal bilaterally, external ears normal, TM's normal bilaterally, TM normal on the right, TM normal on the left, EAC's normal, mastoids normal and no periauricular adenopathy Throat: Yes posterior oropharynx normal, Yes tonsils normal and Yes uvula midline Eyes General: appearance normal, both eyes and all related structures Neck Neck: Yes normal visual inspection, Yes full ROM, Yes no lymphadenopathy, Yes no meningeal signs, Yes trachea midline, Yes supple, No anterior neck swelling and No tender Chest Chest palpation & inspection: normal inspection of the chest and normal palpation of entire chest wall GI Inspection: Yes normal to inspection Palpation (GI): Soft to palpation, not firm, nontender, no guarding and not rigid General: Yes no CVA tenderness Back/Spine/Pelvis Back: no CVA tenderness and No back tenderness Skin General skin exam: no rashes or lesions noted, elasticity normal and turgor normal Neuro General: patient oriented x3, gait normal, tone normal, moves all extremities, Normal light touch and pain sensation, no meningeal signs, no focal motor deficits and CN's II-XI intact bilaterally NIH Stroke Scale Internal: Initial- Upon Arrival Level of Consciousness: Alert Level of Consciousness Questions: Answers both questions correctly Level of Consciousness Commands: Performs both tasks correctly Best Gaze: Normal Visual: No visual loss Facial Palsy: Normal Motor Arm (Right): No drift Motor Arm (Left): No drift Motor Leg (Right): No drift Motor Leg (Left): No drift Limb Ataxia: Absent Sensory: Normal Best Language: No aphasia Dysarthia: Normal Extinction and Inattention: No abnormality Score: 0 Medications Administered Discontinued Medications Generic Name Dose Route Start Last Admin Trade Name Freq PRN Reason Stop Dose Admin Diphenhydramine HCl 50 mg 06/12/24 10:33 06/12/24 12:04 Diphenhydramine Hcl 50 Mg/Ml Vial IVPUSH 06/12/24 10:34 50 mg ONCE ONE Administration Sodium Chloride 1,000 mls @ 999 mls/hr 06/12/24 10:35 06/12/24 12:30 Ns IV 06/12/24 11:35 Infused .Q1H1M STA Infusion Sodium Chloride 1,000 mls @ 999 mls/hr 06/12/24 11:06 06/12/24 12:29 Ns IV 06/12/24 12:06 Infused .Q1H1M STA Infusion Ketorolac Tromethamine 30 mg 06/12/24 10:33 06/12/24 12:04 Ketorolac Tromethamine 30 Mg/Ml Vial IVPUSH 06/12/24 10:34 30 mg ONCE ONE Administration Ondansetron HCl 4 mg 06/12/24 09:22 06/12/24 09:23 Ondansetron Odt 4 Mg Tab.Rapdis TRANSLINGU 06/12/24 09:23 4 mg ONCE ONE Administration Sumatriptan Succinate 6 mg 06/12/24 10:33 06/12/24 12:02 Sumatriptan Succinate 6 Mg/0.5 Ml Vial SUBCUT 06/12/24 10:34 6 mg ONCE ONE Administration Medical Decision Making Medical Decision Making MDM Narrative: Patient presenting as migraine exacerbation. Negative for any neuro deficits not suspecting stroke. We will do migraine cocktail. Head CT scan. Initial labs are normal. Patient became hypotensive will do orthostatics. IV fluids ordered. 1:30Pm: Patient feels better. Patient no longer has headache, nausea, phonophobia, or dizziness. Head CT scan normal. Labs normal. Orthostatics negative. Troponin EKG normal. Heart score is 0. Not suspecting glaucoma, stroke, carotid dissection, meningitis, myocardial infarction, PE, CHF, giant cell arteritis, or any life threatening etiolgies. Patient explained worrisome signs and informed to return to the ED immediately. Differential Diagnosis Differential Diagnoses: The differential diagnosis associated with the presentation includes (Migraine, brain bleed, vertigo) Admission/Observation Consideration of admission/observation: Escalation of care including admission/observation considered Lab Data MDM Lab Attestation statement: I reviewed the patient's lab results. 06/12/24 09:58 06/12/24 09:29 Labs: Lab Results 06/12/24 06/12/24 06/12/24 Range/Units 09: 09:58 11:00 WBC 8.4 9.1 (4.8-10.8) X10*3/uL RBC 4.47 4.42 (4.20-5.50) X10*6/uL Hgb 13.1 12.9 (12.0-16.0) g/dl Hct 39.9 39.1 (37.0-47.0) % MCV 89.3 88.5 (80.0-98.0) fL MCH 29.3 29.2 (27.0-33.0) pg MCHC 32.8 33.0 (31.0-35.0) g/dl RDW 13.7 13.7 (11.0-16.0) % Plt Count 325 304 (160-400) X10*3/uL MPV 11.1 10.8 (9.4-12.3) fL Immature Gran % (Auto) 0.4 0.3 (0.0-0.4) % Neut % (Auto) 56.4 66.9 (45-73) % Lymph % (Auto) 33.8 25.8 (20-40) % [place] % (Auto) 6.8 5.4 (2-11) % Eos % (Auto) 1.3 0.7 (0-4) % Baso % (Auto) 1.3 0.9 (0-2) % Lymph # (Auto) 2.8 2.4 (1.2-4.9) X10*3/uL [place] # (Auto) 0.6 0.5 (0.1-1.2) X10*3/uL Eos # (Auto) 0.1 0.1 (0.0-0.4) X10*3/uL Baso # (Auto) 0.1 0.1 (0.0-0.2) X10*3/uL Abs Immat Gran (auto) 0.03 0.03 (0.00-0.03) X10*3/uL Absolute Neuts (auto) 4.7 6.1 (2.0-8.3) x10*3/uL Absolute Nucleated RBC 0.000 0.000 (0.0-0.012) X10*3/uL Nucleated RBC % (auto) 0.0 0.0 (0.0-0.2) /100WBC PT 12.4 (10.9-12.4) SEC INR 1.1 (0.9-1.1) APTT 39.7 H (26.0-36.8) SEC Sodium 141 (135-145) mmol/L Potassium 3.9 (3.3-5.1) mmol/L Chloride 108 (96-108) mmol/L Carbon Dioxide 23 (22-29) mmol/L Anion Gap 14 (12-20) BUN 17 H (9-16) mg/dL Creatinine 0.71 (0.5-1.4) mg/dL Estim Creat Clear Calc 136.5 Estimated GFR > 60 Random Glucose 100 (60-115) mg/dL Calcium 9.3 (8.4-10.2) mg/dL Magnesium 1.9 (1.6-2.6) mg/dL Total Bilirubin 0.6 (0.0-1.0) mg/dL AST 18 (5-31) U/L ALT 16 (0-31) U/L Alkaline Phosphatase 62 (39-117) U/L Troponin I High Sens < 2.7 (<3.5-17.0) ng/L Total Protein 8.3 H (6.5-8.0) g/dL Albumin 4.4 (3.5-5.0) g/dL Beta HCG, Quant < 2 mIU/mL Urine Color Yellow Urine Appearance Turbid Urine pH 5.5 (5.0-9.0) Ur Specific [place] >= 1.030 H (1.005-1.025) Urine Protein 30 (1+) H (Neg-Trace) mg/dL Urine Glucose (UA) Negative (Negative) mg/dL Urine Ketones Trace (Negative) mg/dL Urine Blood Negative (Negative) Urine Nitrite Negative (Negative) Ur Leukocyte Esterase Negative (Negative) Urine RBC 0-2 (0-2) /HPF Urine WBC 0-5 (0-5) /HPF Ur Squamous Epith Cells 6-10 (0-2) /HPF Urine Bacteria None Seen (None Seen) Hyaline Casts 0-2 (0-2) /LPF Influenza Type A (PCR) NEGATIVE (Negative) Influenza Type B (PCR) NEGATIVE (Negative) RSV RNA Qual (PCR) NEGATIVE (Negative) SARS-CoV-2 RNA (RT-PCR) NEGATIVE (Negative) Independent Interpretation I performed an independent interpretation of an: EKG (Normal sinus rhythm) and CT Scan Radiology Impression Discussion of test interpretation with radiology: I have reviewed the radiologist's reading. Independent Historian Clinical information obtained from an independent historian. History obtained from or confirmed by: Other (Patient) Prescription Management I considered prescription management with: Pain Medication Discharge Plan Discharge Clinical Impression: Headache, migraine Patient Disposition: Home, Self-Care Instructions: Migraine Headache (ED) Additional Instructions: Your labs and head CT scan EKG came back reassuring. Recommend follow-up with primary care provider and a neurologist. Return to the ED immediately for any fever, chills, neck stiffness, nausea, vomiting, severe headache, loss of vision, slurred speech, paralysis of extremities, facial droop, chest pain, shortness of breath, or any other concerning symptoms. Do not take Tylenol while taking Fioricet. Do not take any other NSAIDs while taking ketorolac CT head without contrast. Comparison: None Findings: No acute intracranial hemorrhage, edema, mass effect or extra-axial collection. No acute alteration in the alexandre-white matter interface. Ventricles and sulci age-appropriate. No hydrocephalus. Pituitary, parasellar, hypothalamic and pineal regions are unremarkable. Posterior fossa structures intact. No Chiari malformation. Skull intact. Included paranasal sinuses and mastoids clear. Globes and orbits intact. IMPRESSION: No acute intracranial process. This document has been electronically signed by: Wesley Lerner MD on 06/12/2024 12:23:33 Dictated By: Wesley Lerner MD Signed By: <Electronically signed by Wesley Lerner MD in OV> 06/12/24 1224 Prescriptions: New ketorolac 10 mg tablet 10 mg PO Q6H PRN (Reason: pain) Qty: 20 0RF Rx Instructions: receive 30mg IM Toradol in the ED ntmjaecioc-abejiqhkzjktk-[id number] [Fioricet] 50-300-40 mg capsule 1 cap PO Q6H PRN (Reason: pain) 5 Days Qty: 20 0RF Referrals: Ronald Peterson MD [Physician] - (Migraine) Stand Alone Forms: Work/School Release Interventions: ED Discharge Assessment Last Done: 06/12/24 13:58 Discharge Date/Time: 06/12/24 13:58 Print Language: Maori
[2024-06-12 10:48] VITALS: BP 93/45; PULSE 61; RESP 14; TEMP 37.1; O2SAT 99
[2024-06-12 11:09] LABS: Appearance Urine Turbid; Color Urine Yellow; Glucose Urine UA Negative (Negative); Leukocyte Esterase Urine Negative (Negative); Nitrite Urine Negative (Negative); PH 5.5 (5.0-9.0); Specific Gravity - Urine >= 1.030 (1.005-1.025); UMIC TRIGGER UACC YES; Urine Blood Negative (Negative); Urine Ketones Trace mg/dL (Negative); Urine Protein 30 (1+) mg/dL (Neg-Trace)
[2024-06-12 11:13] VITALS: BP 111/62; BP 113/74; BP 119/71; PULSE 60; PULSE 63; PULSE 77
[2024-06-12 11:15] LABS: INTERNATIONAL NORM RATIO 1.1 (0.9-1.1); Prothrombin Time 12.4 SEC (10.9-12.4)
[2024-06-12 11:18] LABS: Partial Thromboplastin Time 39.7 SEC (26.0-36.8)
[2024-06-12] MEDS: 0.9 % Sodium Chloride 1,000 ML 999 ML IV ×2 (11:29)
[2024-06-12 11:33] LABS: Troponin-I High Sensitivity < 2.7 ng/L (<3.5-17.0)
[2024-06-12 11:43] LABS: Bacteria Urine None Seen (None Seen); Hyaline Casts Urine 0-2 /LPF (0-2); RBC Urine 0-2 /HPF (0-2); WBC Urine 0-5 /HPF (0-5)
[2024-06-12] MEDS: SUMAtriptan succinate 6 MG/0.5 ML VIAL SUBCUT (12:02)
[2024-06-12] MEDS: Ketorolac Tromethamine 30 MG/ML VIAL IVPUSH (12:04)
[2024-06-12] MEDS: diphenhydrAMINE HCL 50 MG/ML VIAL IVPUSH (12:04)
[2024-06-12 12:41] VITALS: BP 112/66; PULSE 65; RESP 14; TEMP 36.8; O2SAT 99
[2024-06-12 13:58] VITALS: BP 112/66; PULSE 65; RESP 14; TEMP 36.8; O2SAT 99
== END 2024-06-12 13:58 | disposition home or self-care (01) ==
PROVIDERS: Physician Assistant; Physician Assistant Medical; Emergency Provider Emergency Medicine
DX: G43.909 Migraine, unspecified, not intractable, without status migrainosus (principal); R42 Dizziness and giddiness; H53.143 Visual discomfort, bilateral; I49.8 Other specified cardiac arrhythmias; R10.2 Pelvic and perineal pain; R11.2 Nausea with vomiting, unspecified; R30.0 Dysuria; Z03.818 Encounter for observation for suspected exposure to other biological agents ruled out; Z79.899 Other long term (current) drug therapy
CPT/HCPCS: 0241U; 36415; 70450; 80053; 81001; 83735; 84484; 84702; 85025; 85610; 85730; 93005; 96360; 96361; 96372; 99284; J1200; J1885; J3030

== ENCOUNTER → 2024-06-12 09:52 | Outpatient (BNV) | payer BC, MEDICAID, SELFPAY | PROVIDERS: Emergency Provider Emergency Medicine; Visit Provider Internal Medicine Cardiovascular Disease | DX: R94.31 Abnormal electrocardiogram [ECG] [EKG] (principal) | CPT/HCPCS: 93010 ==

== ENCOUNTER → 2024-06-12 10:36 | Outpatient (BNV) | payer BC, MEDICAID, SELFPAY | PROVIDERS: Emergency Provider Emergency Medicine; Visit Provider Radiology Diagnostic Radiology | DX: R51.9 Headache, unspecified (principal) | CPT/HCPCS: 70450 ==

== ENCOUNTER 2025-03-23 08:30 | Emergency (ER) | payer MEDICAID, SELFPAY ==
[2025-03-23 08:35] VITALS: BP 140/72; PULSE 128; RESP 20; TEMP 37.1; O2SAT 99; BMI 39.6
--- NOTE | 2025-03-23 09:16 | ED.ANIMALBIT ---
HPI - Animal Bite General Chief Complaint: Animal Bite Stated Complaint: dog bite Time Seen by Provider: 03/23/25 08:44 Source: patient Mode of arrival: ambulatory Limitations: no limitations History of Present Illness ED Provider: WILLIAM TAVARES PA-C HPI narrative: 29 year old female presents to the ED today for evaluation s/p dog bite. She states she was walking her dog when another dog ran up to them, causing a brawl between the two dogs. She attempted to break the fight up however sustained bite wounds to her right hand. Reports puncture wounds to right 2/3/4 digits. She states she is 90% sure it was her own dog who bit her, however there is a degree of uncertainty. Her dogs vaccines are UTD, including rabies. The other dog, however, is unknown to her. Unknown vaccination/rabies status. She is unable to get into contact with the homeowner association manager. She states she is approximately 15 weeks . She states her tetanus is UTD. Related Data Previous Rx's ?Medication ?Instructions ?Recorded juixzufpek-uaesrowcufxsr-sqqdqfbk 1 cap PO Q6H PRN pain 5 days #20 06/12/24 50 mg-300 mg-40 mg capsule caps (Fioricet) ketorolac 10 mg tablet 10 mg PO Q6H PRN pain #20 tabs 06/12/24 cefuroxime axetil 250 mg tablet 250 mg PO BID 10 days #20 tabs 03/23/25 Allergies Allergy/AdvReac Type Severity Reaction Status Date / Time amoxicillin (Amoxicillin) Allergy Unknown UNKNOWN Verified 03/23/25 08:39 Review of Systems Review of Systems: Yes all other systems are reviewed and are negative [facility] Past Medical History Attestation statement: The following information was validated with the patient. Source: old records reviewed and nursing notes reviewed Medical History Fatigue Cervical cancer screening Well woman exam with routine gynecological exam Adult BMI > 30 History of MRSA infection Depression with anxiety Migraine Family History Family History Brother Tracheostomy present Feeding by G-tube Social History Social History Household Members: Children Housing: House Are you a primary respiratory care instructor to a significant other at home: No Do you presently have visiting nurse or other home services: No Alcohol intake: never Patient Tobacco Use Status: Never used Tobacco Special cuong needs: No Agree to transfusion: Yes service: No Current occupational status: employed 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 Skin: Warm, dry, intact. No rashes or lesions. Head: Normocephalic, atraumatic. EENT: Hearing is intact b/l. Conjunctiva clear. PERRLA. EOM intact. Moist mucous membranes.? Cardiac: Chest wall symmetric. RRR Lungs: Normal respiratory effort without accessory muscle use. CTA bilaterally Abdomen: Soft, non-tender, non-distended. No rebound tenderness or guarding. Positive BS x4. Ext: +see photo of right hand below: puncture wound to finger pad of right 4th digit. two puncture wounds note to palmar aspect of right 3rd digit overlying DIP. puncture wound noted to radial aspect of right 2nd digit adjacent to DIP. 2 puncture wounds noted to dorsal aspect of distal 3rd digit. bleeding controlled. FROM intact to all digits. finger strength intact. finger to thumb opposition intact. sheet finisher strength intact. 2+radial pulse. Neuro: AOx3. Normal speech. Ambulating with steady gait. Course Course Course Narrative: Puncture wounds to right hand thoroughly irrigated with saline and iodine. Steri-Strips applied. No sutures in place. Patient tells me her tdap is UTD as of 5 years ago. She is agreeable to starting the rabies series as there is unertainty into which dog bit her hand. She received the vaccine and immunoglobulin in the ED today. She will be following up with the infusion center for further dosing. She has an amoxicillin allergy, reaction unknown. Will be starting showing Ceftin for prophylaxis. Patient has remained stable throughout ED visit today. Discussed worrisome signs and symptoms and when to return to the ED. All questions answered at this time. Patient is agreeable with disposition and stable for discharge. Medications Administered Discontinued Medications Generic Name Dose Route Start Last Admin Trade Name Vladimir PRN Reason Stop Dose Admin Rabies Immune Globulin 2,092 unit 03/23/25 09:35 03/23/25 10:19 Rabies Immune Globulin/Pf 1,500 Unit/5 Ml Vial 20 unit/kg (2092 unit) 03/23/25 09:36 2,092 unit IM Administration ONCE ONE Rabies Vaccine 1 ml 03/23/25 09:35 03/23/25 10:14 Rabies Vaccine (Pcec)/Pf 1 Ml Vial IM 03/23/25 09:36 1 ml .ONCE ONE Administration Medical Decision Making Medical Decision Making MDM Narrative: 29 year old female presents to the ED today for evaluation s/p dog bite. tachycardic, hypertensive. vitals are otherwise wnl. she is generally well appearing and in NAD. on exam, puncture wound to finger pad of right 4th digit. two puncture wounds note to palmar aspect of right 3rd digit overlying DIP. puncture wound noted to radial aspect of right 2nd digit adjacent to DIP. 2 puncture wounds noted to dorsal aspect of distal 3rd digit. bleeding controlled. FROM intact to all digits. finger strength intact. finger to thumb opposition intact. sheet finisher strength intact. 2+radial pulse. Differential diagnosis includes dog bite, skin puncture wounds. Unlikely fracture, ligament/tendon injury. Plan for wound wash out, rabies shots, re-evaluation. Differential Diagnosis Differential Diagnoses: The differential diagnosis associated with the presentation includes as above. Admission/Observation not indicated. Independent Historian Clinical information obtained from an independent historian. History obtained from or confirmed by: Spouse External Record Review External record reviewed: Inpatient record Prescription Management I considered prescription management with: Antibiotic (Ceftin) Social Determinants Patient?s care significantly limited by Social Determinants of Health including: Other Social Determinant of Health Discharge Plan Discharge Clinical Impression: Dog bite of right hand Patient Disposition: Home, Self-Care Instructions: Animal Bite (ED), Rabies (ED) Additional Instructions: You have been evaluated in the Emergency Department today for an animal bite to your (). Please keep the area surrounding the wounds clean and dry and watch closely for signs of infection. Ceftin is an antibiotic that has been sent to your pharmacy for treatment. Please take the antibiotics prescribed to you in full, as directed. You were also provided with the first rabies shot in the rabies vaccination treatment series. As discussed, please follow up with the infusion center for subsequent vaccinations over the next week. Instructions provided on separate paper. You state that your tetanus is UTD so this was not provided in ED today. Please follow up with your primary care provider within two days. Return to the Emergency Department if you experience worsening or uncontrolled pain, spreading redness, fevers 100.4? or greater, pus from your bite, or for any other concerning symptoms. In the case of an emergency call 911. Rabies follow up with the [facility]: Upon discharge from the ED today, you will be contacted by the Infusion Center to schedule your follow up Rabies vaccines. You will need a total of 3 more injections. If for some reason you do not receive a call, please call the Infusion Center directly at [phone]. Follow up with your primary care provider after completion of the vaccine to have a titer drawn to ensure the vaccines effectiveness. Prescriptions: New cefuroxime axetil 250 mg tablet 250 mg PO BID 10 Days Qty: 20 0RF No Action ketorolac 10 mg tablet 10 mg PO Q6H PRN (Reason: pain) Qty: 20 0RF Rx Instructions: receive 30mg IM Toradol in the ED qbncqzujvy-iwtrqlkrrjtwd-sjvm [Fioricet] 50-300-40 mg capsule 1 cap PO Q6H PRN (Reason: pain) 5 Days Qty: 20 0RF Referrals: Physician,None [Primary Care Provider, Medical] Stand Alone Forms: Work/School Release Interventions: ED Discharge Assessment Last Done: 03/23/25 10:44 Discharge Date/Time: 03/23/25 10:45 Print Language: German
[2025-03-23 10:08] VITALS: BP 125/70; PULSE 97; RESP 14; TEMP 36.2; O2SAT 96
[2025-03-23] MEDS: Rabies Vaccine (PCEC)/PF 1 ML VIAL IM (10:14)
[2025-03-23 10:44] VITALS: BP 125/70; PULSE 97; RESP 14; TEMP 36.2; O2SAT 96
== END 2025-03-23 10:45 | disposition home or self-care (01) ==
PROVIDERS: Emergency Provider Emergency Medicine
DX: S61.451A Open bite of right hand, initial encounter (principal); O26.92 Pregnancy related conditions, unspecified, second trimester; R00.0 Tachycardia, unspecified; I16.0 Hypertensive urgency; W54.0XXA Bitten by dog, initial encounter; Y93.K1 Activity, walking an animal; Y92.480 Sidewalk as the place of occurrence of the external cause; Y99.8 Other external cause status; Z3A.15 15 weeks gestation of pregnancy; Z29.14 Encounter for prophylactic rabies immune globulin; Z20.3 Contact with and (suspected) exposure to rabies; Z23 Encounter for immunization
CPT/HCPCS: 90375; 90471; 90472; 90675; 96372; 99283; 99284

== ENCOUNTER 2025-04-06 11:45 | Outpatient (RCR) | payer BC, MEDICAID, SELFPAY ==
[2025-03-26 10:23] VITALS: BP 120/86; PULSE 105; RESP 18; TEMP 36.5; O2SAT 99; BMI 39.0
[2025-03-26] MEDS: Rabies Vaccine (PCEC)/PF 1 ML VIAL IM (10:39)
[2025-03-30] MEDS: Rabies Vaccine (PCEC)/PF 1 ML VIAL IM (10:32)
[2025-04-06 11:50] VITALS: BP 111/61; RESP 16; TEMP 36.5; O2SAT 98
[2025-04-06] MEDS: Rabies Vaccine (PCEC)/PF 1 ML VIAL IM (11:54)
== END 2025-04-06 11:57 | disposition home or self-care (01) ==
LOC: HO.INF 11:45
PROVIDERS: Visit Provider Physician Assistant Medical
DX: Z20.3 Contact with and (suspected) exposure to rabies (principal); S61.451A Open bite of right hand, initial encounter; W54.0XXA Bitten by dog, initial encounter
CPT/HCPCS: 90471; 90675